=== PATIENT | male | born 1995 | race Caucasian/White ===

== ENCOUNTER → 2019-06-29 11:19 | Outpatient (CLI) | payer OTHER, SELFPAY ==
--- NOTE | 2019-06-29 11:22 | US_ITS ---
STUDY: ABDOMINAL ULTRASOUND - RIGHT UPPER QUADRANT REASON FOR VISIT: Male, 24 years old hyperbilirubinemia TECHNIQUE: Ultrasound evaluation of the right upper quadrant was performed with real-time and static martinez-scale imaging. TECHNICAL QUALITY: Adequate. COMPARISON: None. FINDINGS: Liver: The liver measures 15.6 cm. There is normal echogenicity of the liver. The bile ducts are within normal limits. There is hepatic color flow. The direction of portal flow is hepatopetal. There is no demonstrated mass lesion. Gallbladder: Normal distended gallbladder. The gallbladder wall measures 1.7 mm. There is a negative sonographic Beckett's sign. There is no pericholecystic fluid. There are two gallbladder polyps measuring up to 3.9 mm. Common Bile Duct (C.B.D.): The common bile duct measures 1.9 mm. Pancreas: Normal size of the head, body and tail of the pancreas. There is normal echogenicity of the pancreas. There is no demonstrated pancreatic mass or cyst. Right Kidney: Normal size of the right kidney. The right kidney measures 10.6 cm in length. There is no demonstrated renal mass or cyst. There is no right hydronephrosis. US/Abdomen Limited IMPRESSION: No acute intra-abdominal process. Gallbladder polyps. Electronically Signed: Nella Somers MD at 16:54 EDT Tel , Service support ,
== END ==
PROVIDERS: Family Provider Family Medicine; PCP Family Medicine; Referring Provider Family Medicine; Visit Provider Family Medicine
DX: E80.6 Other disorders of bilirubin metabolism (principal)
CPT/HCPCS: 76705

== ENCOUNTER → 2021-01-08 15:47 | Outpatient (CLI) | payer OTHER, SELFPAY ==
--- NOTE | 2021-01-08 15:48 | CT_ITS ---
STUDY: CT FACIAL BONES WITHOUT CONTRAST REASON FOR EXAM: Male, 25 years old. sinus congestion and vertigo RADIATION DOSAGE (If Supplied By Facility): CTDIvol = ( 28.14 ) mGy, DLP = ( 749.71 ) mGycm TECHNIQUE: The patient was scanned in a multi detector CT scanner. Sagittal and coronal images were reconstructed. Individualized dose optimization techniques were used for this CT. COMPARISON: None. FINDINGS: There are large, asymmetric coarse calcifications in the left auricular cartilage with only trace calcification in the right articular cartilage. Normal orbital hernandez and orbital contents. Normal nasal bones and anterior nasal spine. Normal facial bones. There is no demonstrated fracture. Normal visualized paranasal sinuses. CT/Sinus/Facial Bone IMPRESSION: The paranasal sinuses are clear. Incidentally noted is a large, asymmetric coarse calcifications in the left articular cartilage. There is a wide differential for this appearance including but is not limited to hyperparathyroidism, gout, relapsing polychondritis or trauma. Electronically Signed: Oswald Cartwright MD at 16:36 EDT Tel , Service support ,
== END ==
PROVIDERS: PCP Family Medicine; Referring Provider Family Medicine; Visit Provider Family Medicine
DX: R42 Dizziness and giddiness (principal)
CPT/HCPCS: 70486

== ENCOUNTER → 2021-07-18 15:52 | Outpatient (CLI) | payer OTHER, SELFPAY ==
[2021-07-20 08:09] LABS: HEPATITIS B SURFACE AG Negative (Negative); Hepatitis A IgM Antibody Negative (Negative); Hepatitis B Core AB IgM Negative (Negative)
[2021-07-20 13:33] LABS: Hep C Antibodies <0.1 s/co ratio (0.0-0.9)
== END ==
PROVIDERS: PCP Family Medicine; Referring Provider Family Medicine; Visit Provider Family Medicine
DX: R79.89 Other specified abnormal findings of blood chemistry (principal)
CPT/HCPCS: 36415; 80074

== ENCOUNTER 2021-11-26 09:56 | Outpatient (CLI) | payer OTHER, SELFPAY ==
[2021-11-26 12:27] LABS: Hepatitis B Surface Antibody Reactive; Rubella IgG Reactive (Nonreactive)
[2021-11-27 18:39] LABS: Mumps Antibody,IgG 72.1 AU/mL (Immune >10.9); Rubeola IgG Ab > 300.0 AU/mL (Immune >16.4); V-Zoster IgG (Immunity) 2790 index (Immune >165)
== END 2021-11-26 23:59 | disposition home or self-care (01) ==
LOC: LAB 09:59
PROVIDERS: PCP Family Medicine; Visit Provider Family Medicine
DX: Z01.84 Encounter for antibody response examination (principal)
CPT/HCPCS: 86706; 86735; 86762; 86765; 86787

== ENCOUNTER 2022-05-23 08:24 | Outpatient (RCR) | payer OTHER, SELFPAY | END 2022-05-27 23:59 | LOC: LABSPEC 08:24 | PROVIDERS: PCP Family Medicine; Referring Provider Family Medicine Geriatric Medicine; Visit Provider Family Medicine Geriatric Medicine | DX: Z01.84 Encounter for antibody response examination (principal) | CPT/HCPCS: 87811 ==

== ENCOUNTER → 2023-01-22 | Outpatient (CLI) | payer OTHER, SELFPAY ==
[2023-01-22 10:55] LABS: ALB/GLOB Ratio 1.4 RATIO (0.9-2.4); AST(SGOT) 19 U/L (15-37); Alanine Aminotransfer ALT/SGPT 31 U/L (16-61); Albumin, Serum 4.4 g/dL (3.2-5.0); Alkaline Phosphatase 41 U/L (45-117); Anion Gap 2 (5-15); BUN 15 mg/dL (7-18); BUN/Creat Ratio 14.2 RATIO (10-20); Calcium,Total 8.9 mg/dL (8.5-10.1); Chloride 103 mmol/L (98-107); Creatinine, Serum 1.06 mg/dL (0.70-1.30); EST Glomerular Filtration Rate 87 mL/min (>60); Est Glom Filt Rate - Afr Amer 106 mL/min (>60); Ferritin 245 ng/mL (26-388); Globulin 3.2 g/dL (2.2-4.2); Glucose 92 mg/dL (74-106); Magnesium 2.1 mg/dL (1.6-2.6); Potassium 3.6 mmol/L (3.5-5.1); Protein, Total 7.6 g/dL (6.4-8.2); Sodium Level 133 mmol/L (136-145); T4 Free Direct 0.97 ng/dL (0.76-1.46); Thyroid Stim Hormone (TSH) 1.29 uIU/mL (0.358-3.74)
[2023-01-26 11:09] LABS: Anti-Nuclear Antibody Test Negative (.)
[2023-01-27 00:06] LABS: Lyme IgG P18 Ab Absent (.); Lyme IgG P23 Ab Present (.); Lyme IgG P28 Ab Absent (.); Lyme IgG P30 Ab Absent (.); Lyme IgG P39 Ab Absent (.); Lyme IgG P41 Ab Present (.); Lyme IgG P45 Ab Absent (.); Lyme IgG P58 Ab Absent (.); Lyme IgG P66 Ab Absent (.); Lyme IgG P93 Ab Absent (.); Lyme IgG WB Interpretation Negative (.); Lyme IgM P23 Ab Absent (.); Lyme IgM P39 Ab Absent (.); Lyme IgM P41 Ab Absent (.); Lyme IgM WB Interpretation Negative (.)
[2023-01-27 04:07] LABS: Vitamin B12 602 pg/mL (232-1245)
== END | disposition home or self-care (01) ==
PROVIDERS: PCP Family Medicine; Referring Provider Psychiatry & Neurology Sleep Medicine; Visit Provider Psychiatry & Neurology Sleep Medicine
DX: G37.9 Demyelinating disease of central nervous system, unspecified (principal); R25.3 Fasciculation; R55 Syncope and collapse
CPT/HCPCS: 36415; 80053; 82607; 82728; 83735; 84439; 84443; 86038; 86617

== ENCOUNTER → 2023-01-28 | Outpatient (CLI) | payer OTHER, SELFPAY | END | disposition home or self-care (01) | LOC: PSN 08:22 | PROVIDERS: PCP Family Medicine; Referring Provider Psychiatry & Neurology Sleep Medicine; Visit Provider Psychiatry & Neurology Sleep Medicine | DX: R25.3 Fasciculation (principal); R55 Syncope and collapse | CPT/HCPCS: 95819 ==

== ENCOUNTER → 2023-02-10 | Outpatient (CLI) | payer OTHER, SELFPAY ==
--- NOTE | 2023-02-10 07:37 | MRI_ITS ---
STUDY: MRI BRAIN WITHOUT CONTRAST REASON FOR EXAM: Male, 27 years old. DEMYELINATING DISEASE,TWITCH,ABNORMAL INVOLUNTARY MOVEMENT,VASOVAGAL EPISODE TECHNIQUE: Standardized multiplanar fat and water weighted pulse sequences were obtained. COMPARISON: None. FINDINGS: Normal size of the ventricles and extra-axial spaces for the patient''s age. Normal white matter tracts of the supratentorial brain. Normal bilateral basal ganglia. Normal thalami. There is no extra-axial fluid accumulation. Normal flow voids within the major intracranial circulation suggesting patency by spin echo criteria. Normal sella turcica, pituitary gland, infundibular stalk, optic chiasm and hypothalamus. Normal tectal plate and pineal gland. Normal midbrain, duyen and medulla. Normal cerebellum. Normal basal cisterns. Normal bilateral temporal bones. Normal bilateral internal auditory canals. No demonstrated orbital abnormality, within the constraints of a routine brain study. Normal visualized paranasal sinuses. Normal calvarium and skull base. Tiny Thornwaldt cyst noted within the posterior nasopharynx. Normal visualized upper cervical spine. MRI/Brain without Contrast IMPRESSION: Normal unenhanced MRI of the brain. Incidental finding of Thornwaldt cyst within the posterior nasopharynx which is likely of no significance Electronically Signed: Camron Johnson MD at 18:37 EDT ,
== END | disposition home or self-care (01) ==
LOC: MRI 07:24
PROVIDERS: PCP Family Medicine; Referring Provider Psychiatry & Neurology Sleep Medicine; Visit Provider Psychiatry & Neurology Sleep Medicine
DX: G37.9 Demyelinating disease of central nervous system, unspecified (principal); R25.3 Fasciculation; R55 Syncope and collapse
CPT/HCPCS: 70551

== ENCOUNTER → 2023-05-07 | Outpatient (CLI) | payer OTHER, SELFPAY ==
[2023-05-12 00:07] LABS: Lyme IgG P18 Ab Absent (.); Lyme IgG P23 Ab Absent (.); Lyme IgG P28 Ab Absent (.); Lyme IgG P30 Ab Absent (.); Lyme IgG P39 Ab Absent (.); Lyme IgG P41 Ab Absent (.); Lyme IgG P45 Ab Absent (.); Lyme IgG P58 Ab Absent (.); Lyme IgG P66 Ab Absent (.); Lyme IgG P93 Ab Absent (.); Lyme IgG WB Interpretation Negative (.); Lyme IgM P23 Ab Absent (.); Lyme IgM P39 Ab Absent (.); Lyme IgM P41 Ab Absent (.); Lyme IgM WB Interpretation Negative (.)
== END | disposition home or self-care (01) ==
LOC: MFPLAB 11:44
PROVIDERS: PCP Family Medicine; Visit Provider Family Medicine
DX: A69.23 Arthritis due to Lyme disease (principal)
CPT/HCPCS: 36415; 86617

== ENCOUNTER 2023-05-22 11:52 | Outpatient (CLI) | payer OTHER, SELFPAY ==
--- OUTSIDE RECORDS SUMMARY | 2023-05-22 11:54 | XMS RPT_ITS | CCD ---
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 Name Role Phone Unavailable Primary Care Provider SILVER Nguyen Referring Unavailable VICKI PRETTY JR Attending Unavailable Allergies Allergy Classification Reported Allergen(s) Allergy Type Date of Onset Reaction(s) Facility (5 sources) Environmental allergies [Other] Propensity to adverse reactions 7 [facility] (1 source) OTHER; Translations: [OTHER] Propensity to adverse reactions (disorder) 7 [facility] Medications Completed/Discontinued Medications Medication Drug Class(es) Dates Sig (Normalized) Sig (Original) sertraline 50 mg oral tablet (3 sources) Serotonin Reuptake Inhibitor take 1 tablet by mouth once daily sertraline (ZOLOFT) 50 mg tablet Take 50 mg by mouth once daily. 0 Active Problems Problem Classification Problem Date Documented Date Episodic/Chronic Other nervous system disorders (1 source) Demyelinating disease of central nervous system; Translations: [Demyelinating disease of central nervous system, unspecified] Chronic Other nervous system disorders (1 source) Muscle twitch; Translations: [Fasciculation] Episodic Other nervous system disorders (1 source) Abnormal involuntary movement; Translations: [Unspecified abnormal involuntary movements] Episodic Other upper respiratory disease (5 sources) Allergic rhinitis; Translations: [Allergic rhinitis, unspecified] Onset: 05-10-2007 05-10-2007 Chronic Other upper respiratory infections (5 sources) Chronic sinusitis; Translations: [Chronic sinusitis, unspecified] Onset: 06-09-2007 06-09-2007 Chronic Syncope (1 source) Vasovagal syncope; Translations: [Syncope and collapse] Episodic Results Test Name Value Interpretation Reference Range Facil ity Vital Signs Date Time Vital Sign Value Performing Clinician Faci lity 01-22-2023 07:59-0400 Body temperature 98.49 [degF] Vicki Pretty Jr., MD Work Phone: [facility] 01-22-2023 07:59-0400 Body weight 88.09 kg Vicki Pretty Jr., MD Work Phone: [facility] 01-22-2023 07:59-0400 Diastolic blood pressure 85 mm[Hg] Vicki Pretty Jr., MD Work Phone: [facility] 01-22-2023 07:59-0400 Heart rate 92 /min Vicki Pretty Jr., MD Work Phone: [facility] 01-22-2023 07:59-0400 Respiratory rate 16 /min Vicki Pretty Jr., MD Work Phone: [facility] 01-22-2023 07:59-0400 SaO2% (BldA) [Mass fraction] 98 % Vicki Pretty Jr., MD Work Phone: [facility] 01-22-2023 07:59-0400 Systolic blood pressure 130 mm[Hg] Vicki Pretty Jr., MD Work Phone: [facility] Encounters Encounter Date Encounter Type Care Provider Facility Start: 01-27-2023 Telephone encounter Vicki Pretty MD Work Phone: Sleep Plan of Treatment Date Care Activity Detail Author Start: 01-22-2023 End: 03-24-2023 L[facility] BY IFA WITH REFLEX [facility] BY IFA WITH REFLEX Lab Routine Demyelinating disease of central nervous system (HCC) Twitch Abnormal involuntary movement Vasovagal episode Expected: 01/22/2023, Expires: 03/24/2023 [facility] Work Phone: Immunizations Immunization Date Immunization Notes Care Provider Piero portillo 03-23-2014 hepatitis A vaccine, pediatric/adolescent dosage, 2 dose schedule Vicki Pretty Jr., MD Work Phone: [facility] 07-23-2011 influenza virus vaccine, live, attenuated, for intranasal use Vicki Pretty Jr., MD Work Phone: [facility] 08-09-2008 hepatitis A vaccine, unspecified formulation Vicki Pretty Jr., MD Work Phone: [facility] Work Phone: 08-09-2008 influenza virus vaccine, live, attenuated, for intranasal use Vicki Pretty Jr., MD Work Phone: [facility] Work Phone: 07-19-2007 influenza virus vaccine, live, attenuated, for intranasal use Vicki Pretty Jr., MD Work Phone: [facility] Work Phone: 07-19-2007 Meningococcal, MCV4, unspecified conjugate formulation(groups A, C, Y and W-135) Vicki Pretty Jr., MD Work Phone: [facility] Work Phone: 06-09-2007 pneumococcal conjuga te vaccine, 7 valent Vicki Pretty Jr., MD Work Phone: [facility] Work Phone: 06-17-2005 tetanus toxoid, redu chris diphtheria toxoid, and acellular pertussis vaccine, adsorbed Vicki Pretty Jr., MD Work Phone: [facility] 01-12-2000 hepatitis B vaccine, pediatric or pediatric/adolescent dosage Vicki Pretty Jr., MD Work Phone: [facility] Work Phone: 07-08-1998 hepatitis B vaccine, pediatric or pediatric/adolescent dosage Vicki Pretty Jr., MD Work Phone: [facility] Work Phone: 05-16-1998 diphtheria, tetanus toxoids and pertussis vaccine Vicki Pretty Jr., MD Work Phone: [facility] Work Phone: 05-16-1998 hepatitis B vaccine, pediatric or pediatric/adolescent dosage Vicki Pretty Jr., MD Work Phone: [facility] Work Phone: 05-16-1998 measles, mumps and rubella virus vaccine Vicki Pretty Jr., MD Work Phone: [facility] Work Phone: 1997 chicken pox (disease) Suman Pretty Jr., MD Work Phone: [facility] Work Phone: 10-23-1994 diphtheria, tetanus toxoids and pertussis vaccine Vicki Pretty Jr., MD Work Phone: [facility] Work Phone: 10-23-1994 haemophilus influenz ae type b vaccine, HbOC conjugate Vicki Pretty Jr., MD Work Phone: [facility] Work Phone: 10-23-1994 measles, mumps and rubella virus vaccine Vicki Pretty Jr., MD Work Phone: [facility] Work Phone: 10-23-1994 trivalent poliovirus vaccine, live, oral Vicki Pretty Jr., MD Work Phone: [facility] Work Phone: 06-29-1994 diphtheria, tetanus toxoids and pertussis vaccine Vicki Pretty Jr., MD Work Phone: [facility] Work Phone: 06-29-1994 trivalent poliovirus vaccine, live, oral Vicki Pretty Jr., MD Work Phone: [facility] Work Phone: 01-13-1994 diphtheria, tetanus toxoids and pertussis vaccine Vicki Pretty Jr., MD Work Phone: [facility] Work Phone: 01-13-1994 haemophilus influenz ae type b vaccine, HbOC conjugate Vicki Pretty Jr., MD Work Phone: [facility] Work Phone: 01-13-1994 trivalent poliovirus vaccine, live, oral Vicki Pretty Jr., MD Work Phone: [facility] Work Phone: 1993 diphtheria, tetanus toxoids and pertussis vaccine Vicki Pretty Jr., MD Work Phone: [facility] Work Phone: 1993 haemophilus influenz ae type b vaccine, HbOC conjugate Vicki Pretty Jr., MD Work Phone: [facility] Work Phone: 1993 trivalent poliovirus vaccine, live, oral Vicki Pretty Jr., MD Work Phone: [facility] Work Phone: Payers Date Payer Category Payer Private Health Insurance [facility] [id number] 2022-Present [phone] [address] [place] [address] PPO [id number] 2022 Private Health Insurance [id number] 2014 Unknown HOSPITAL/MEDICAL GENERIC MEDICAL GENERIC [id number] 2014-Present [phone] [place] [id number] Indemnity [id number] Social History Date Type Detail Facility [facility] Start: 05-13-2022 End: 01-22-2023 Alcohol intake Current non-drinker of alcohol (finding) [facility] Start: 1995 Sex Assigned At [facility] 01-28-2023 Telephone Encounter - Trent Bonilla LPN - 01/28/2023 9:08 AM EDTTelephone Encounter - Vicki Pretty Jr., MD - 01/28/2023 8:48 AM EDT Note Date & Type Note Facility 01-28-2023 Miscellaneous Notes Formattin g of this note might be different from the original. MC message sent to patient with providers results. Trent Bonilla LPN From reports received, labs unremarkable. Vicki Pretty MD Please see attached labs and review. Scan on 01/27/2023 12:33 PM by External Provider, KEVIN: Hematology Marlys Trejo LPN Labs received via [employer] from [facility]. Scanned in to chart and sent to provider for review. Marlys Trejo LPN Pt calling for results of lab work done at [facility]. Pt was being tested for Lyme's Disease. Please advise pt. Natalie Raines LPN documented in this encounter [facility] Note 01-22-2023 Telephone Encounter - Marlys Trejo LPN - 01/22/2023 10:55 AM EDTTelephone Encounter - Francesca Lockett RN - 01/22/2023 10:32 AM EDT Note Date & Type Note Facility 01-22-2023 Miscellaneous Notes Formattin g of this note might be different from the original. Referral placed. Marlys Trejo LPN Mary Alice with [facility] Precert called in and reports provider needs to initiate the authorization for the MRI they ordered through the [facility]. documented in this encounter [facility] Progress note 01-22-2023 Note Date & Type Note Facility 01-22-2023 Note HNO ID: [id number] Author: Vicki Pretty Jr., MD Service: ? Author Type: Physician Type: Progress Notes Filed: 01/22/2023 8:54 AM Note Text: NEW PATIENT (CONSULT) HISTORY AND PHYSICAL EXAM PRIMARY CARE PHYSICIAN: No primary care provider on file. REASON FOR CONSULT: Facial twitching REFERRING PHYSICIAN: Silver Hart MD CHIEF COMPLAINT: Twitching Consultation requested by Silver Hart MD for an opinion regarding chief complaint of Patient presents with: New Patient and my final recommendations will be communicated back to the requesting physician by way of shared medical record or letter via [place] mail. HISTORY OF PRESENT ILLNESS: Beata Simpson is a 27 year old male, with complaint of facial twitching. 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 States then later noted a sensation that his nose is dilating and maral (bilateral nares). States feels like it is coming down from the middle of the head into the nose. States this sensation always there. Adds that at times feels like pupils dilating and constricting in a rhythmic pattern. States sertraline may have helped the eye twitching just a little bit. Eye twitching was bilateral. States has headaches, but nothing out of the ordinary and not associated directly with symptoms (maybe 2 days per month and relieved with OTC). Regarding vasovagal events, states first time was drawing blood and suddenly became clammy and felt like he was going to pass out. States weird sensations since then. States he is seeing a counselor for exposure therapy. Sertraline provided some relief. No association with time of day. No association with temperature. States uncle with MS. No significant head traumas through the years except coupe concussions as a kid. No HOSPITAL ACCOUNT MANAGER infection. No personal or family history of seizures. REVIEW OF SYSTEMS GENERAL:No weight loss, malaise or fevers. HEENT:Negative for frequent or significant headaches, No changes in hearing or vision, no nose bleeds or other nasal problems NECK:Negative for lumps, goiter, pain and significant neck swelling RESPIRATORY: Negative for cough, wheezing or shortness of breath. CARDIOVASCULAR: Negative for chest pain, leg swelling or palpitations. GASTROINTESTINAL: Negative for abdominal discomfort, blood in stools or black stools or change in bowel habits GENITOURINARY: No history of dysuria, frequency or incontinence MUSCULOSKELETAL: Negative for joint pain or swelling, back pain or muscle pain. NEUROLOGIC:Negative for focal numbness or weakness, headaches and dizziness or syncope, vision changes, speech/language changes, changes in gait or falls -- besides those complaints as above in HPI. SKIN:Negative for lesions, rash, and itching. PSYCHIATRIC: See HPI. HEMATOLOGIC/LYMPHATIC/IMMUNOLOGIC:Negativ e for prolonged bleeding, bruising easily or swollen nodes. ENDOCRINE: Negative for cold or heat intolerance, polyuria, polydipsia and goiter. The remainder of the ROS was reviewed and is negative. LAB/IMAGING: Reviewed and include: D/w pt and no recent labs except BMP that pt states was told normal. No results found for: WBC, RBC, HB, HCT, MCV, MCH, MCHC, RDWCV, PLT, MPV, GLUC, BUN, CREAT, NA, K, CHLOR, CO2, TPROT, ALB, CA, ALKPHOS, TBILI, AST, ALT, LUH, ESRMM, SSA, SSB, CRYO, CRYOQ, RF, AHBSQ, HEPCABEIA URINALYSIS Specific [place], Ur Date Value Ref Range Status 08/09/2008 1.025 1.005 - 1.030 Glucose, Urine Date Value Ref Range Status 08/09/2008 neg Neg mg/dL Bilirubin, Urine Date Value Ref Range Status 08/09/2008 neg Neg Ketones, Urine Date Value Ref Range Status 08/09/2008 neg Neg Hemoglobin/Blood,Ur Date Value Ref Range Status 08/09/2008 neg Neg Protein, Urine Date Value Ref Range Status 08/09/2008 100 Neg mg/dL Urobilinogen, Urine Date Value Ref Range Status 08/09/2008 2 Normal (<1.1) EU Leukocytes Date Value Ref Range Status 08/09/2008 neg Neg MEDICATIONS: sertraline (ZOLOFT) 50 mg tablet Take 50 mg by mouth once daily. valACYclovir (VALTREX) 500 mg tablet 1 tab twice daily for 3 days then daily throughout the wrestling season. (Patient not taking: Reported on 01/22/2023) HISTORIES PAST MEDICAL HISTORY Diagnosis Date ALLERGIC RHINITIS NOS 05/10/2007 CHRONIC SINUSITIS NOS 06/09/2007 PMH - PAST MEDICAL HISTORY OF 05/16/98 normal color vision Varicella without mention of complication 1 years of age FAMILY HISTORY Problem Relation Age of Onset None Mother None Father None Brother SOCIAL HISTORY Social History Tobacco Use Smoking status: Never Smokeless tobacco: Never Substance Use Topics Alcohol use: No Drug use: No PHYSICAL EXAMINATION BP 130/85 Pulse 92 Temp 36.9 ?C (98.5 ?F) Resp 16 Wt 88.1 kg (194 lb 3.2 oz) SpO2 98% (more content not included)... [facility] History of Present illness Narrative 01-22-2023 Vicki Pretty Jr., MD - 01/22/2023 8:14 AM EDT Note Date & Type Note Facility 01-22-2023 History of Presen t illness Narrative NEW PATIENT (CONSULT) HISTORY AND PHYSICAL EXAM PRIMARY CARE PHYSICIAN: No primary care provider on file. REASON FOR CONSULT: Facial twitching REFERRING PHYSICIAN: Silver Hart MD CHIEF COMPLAINT: Twitching Consultation requested by Silver Hart MD for an opinion regarding chief complaint of Patient presents with: New Patient and my final recommendations will be communicated back to the requesting physician by way of shared medical record or letter via [place] mail. HISTORY OF PRESENT ILLNESS: Beata Simpson is a 27 year old male, with complaint of facial twitching. 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 States then later noted a sensation that his nose is dilating and maral (bilateral nares). States feels like it is coming down from the middle of the head into the nose. States this sensation always there. Adds that at times feels like pupils dilating and constricting in a rhythmic pattern. States sertraline may have helped the eye twitching just a little bit. Eye twitching was bilateral. States has headaches, but nothing out of the ordinary and not associated directly with symptoms (maybe 2 days per month and relieved with OTC). Regarding vasovagal events, states first time was drawing blood and suddenly became clammy and felt like he was going to pass out. States weird sensations since then. States he is seeing a counselor for exposure therapy. Sertraline provided some relief. No association with time of day. No association with temperature. States uncle with MS. No significant head traumas through the years except coupe concussions as a kid. No HOSPITAL ACCOUNT MANAGER infection. No personal or family history of seizures. REVIEW OF SYSTEMS GENERAL:No weight loss, malaise or fevers. HEENT:Negative for frequent or significant headaches, No changes in hearing or vision, no nose bleeds or other nasal problems NECK:Negative for lumps, goiter, pain and significant neck swelling RESPIRATORY: Negative for cough, wheezing or shortness of breath. CARDIOVASCULAR: Negative for chest pain, leg swelling or palpitations. GASTROINTESTINAL: Negative for abdominal discomfort, blood in stools or black stools or change in bowel habits GENITOURINARY: No history of dysuria, frequency or incontinence MUSCULOSKELETAL: Negative for joint pain or swelling, back pain or muscle pain. NEUROLOGIC:Negative for focal numbness or weakness, headaches and dizziness or syncope, vision changes, speech/language changes, changes in gait or falls -- besides those complaints as above in HPI. SKIN:Negative for lesions, rash, and itching. PSYCHIATRIC: See HPI. HEMATOLOGIC/LYMPHATIC/IMMUNOLOGIC:Neg ative for prolonged bleeding, bruising easily or swollen nodes. ENDOCRINE: Negative for cold or heat intolerance, polyuria, polydipsia and goiter. The remainder of the ROS was reviewed and is negative. LAB/IMAGING: Reviewed and include: D/w pt and no recent labs except BMP that pt states was told normal. No results found for: WBC, RBC, HB, HCT, MCV, MCH, MCHC, RDWCV, PLT, MPV, GLUC, BUN, CREAT, NA, K, CHLOR, CO2, TPROT, ALB, CA, ALKPHOS, TBILI, AST, ALT, LUH, ESRMM, SSA, SSB, CRYO, CRYOQ, RF, AHBSQ, HEPCABEIA URINALYSIS Specific [place], Ur Date Value Ref Range Status 08/09/2008 1.025 1.005 - 1.030 Glucose, Urine Date Value Ref Range Status 08/09/2008 neg Neg mg/dL Bilirubin, Urine Date Value Ref Range Status 08/09/2008 neg Neg Ketones, Urine Date Value Ref Range Status 08/09/2008 neg Neg Hemoglobin/Blood,Ur Date Value Ref Range Status 08/09/2008 neg Neg Protein, Urine Date Value Ref Range Status 08/09/2008 100 Neg mg/dL Urobilinogen, Urine Date Value Ref Range Status 08/09/2008 2 Normal (<1.1) EU Leukocytes Date Value Ref Range Status 08/09/2008 neg Neg MEDICATIONS: sertraline (ZOLOFT) 50 mg tablet Take 50 mg by mouth once daily. valACYclovir (VALTREX) 500 mg tablet 1 tab twice daily for 3 days then daily throughout the wrestling season. (Patient not taking: Reported on 01/22/2023) HISTORIES PAST MEDICAL HISTORY Diagnosis Date ALLERGIC RHINITIS NOS 05/10/2007 CHRONIC SINUSITIS NOS 06/09/2007 PMH - PAST MEDICAL HISTORY OF 05/16/98 normal color vision Varicella without mention of complication 1 years of age FAMILY HISTORY Problem Relation Age of Onset None Mother None Father None Brother SOCIAL HISTORY Social History Tobacco Use Smoking status: Never Smokeless tobacco: Never Substance Use Topics Alcohol use: No Drug use: No PHYSICAL EXAMINATION BP 130/85 Pulse 92 Temp 36.9 C (98.5 F) Resp 16 Wt 88.1 kg (194 lb 3.2 oz) SpO2 98% GENERAL EXAM: General appearance: NAD, pleasant. HEENT: NC/AT, nasal congestion absent, no oral lesions, membranes moist. NECK: No masses, supple. Lungs: CTA bilaterally. CV: RRR nl S1, S2. No carotid bruits. Extr: No cyanosis, clubbing or edema. Skin: Cool to touch. NEUROLOGICAL EXAM: General: Awake, alert, oriented x3 (person,place,time), speech fluent, no dysarthria; comprehension, naming, repetition intact. CN: PERRL, fundi with no evidence of papilledema, EOMI and without nystagmus, VFF to confrontation, facial sensation and strength are normal and symmetric, hearing is intact to finger rub bilaterally, palate and tongue movements are intact and symmetric. SCM and trapezius strength normal. Motor: Normal tone, bulk and strength (5/5) bilaterally (throughout extremities x4). Reflexes: 2/4 and symmetric, plantar stimulation is flexor. Coordination: FNF, ROLF, HTS intact. No tremors. Sensation: Light touch, vibration, temperature intact throughout. No evidence of neglect. Gait: Stable with normal stride and arm swing. Romberg normal. Assessment and Plan: ASSESSMENT/PLAN: 1. Twitch - ICD9: 781.0, ICD10: R25.3 (primary diagnosis) 2. Abnormal involuntary movement - ICD9: 781.0, ICD10: R25.9 3. Vasovagal episode - ICD9: 780.2, ICD10: R55 Patient with complaints above, of which etiology is uncertain. While there has been some response to the use of sertraline with a reduction in symptoms, the diagnosis of anxiety induced symptoms would be a diagnosis of exclusion. 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 Thus, need to consider other etiologies not just for this symptom but for twitching and abnormal sensations of the face with ddx including metabolic cause or infectious process given exposure to tick in the past. Given rhythmic pattern of pupils, seizure would also be in ddx. Finally given family history of MS, need to consider demyelinating process. If workup unremarkable, then can reconsider possible anxiety as a cause. Plan as follows and with which pt agrees. - MRI BRAIN WO IVCON - evaluate for demyelinating changes or other intracranial source of symptoms. -EEG - evaluate for epileptiform abnormalities. -Labs as follows: - TSH BLD - T4 FREE/FREE THYROX - VITAMIN B12 BLOOD - LUH BY IFA WITH REFLEX - LYME AB LATE >30 DAYS SYMPTOMS - MAGNESIUM BLD - COMP METABOLIC PANEL - FERRITIN BLD Pt will follow up once workup complete to determine course of treatment. Vicki Pretty MD Medical Decision Making: Problems: Moderate: New problem with uncertain prognosis Data: Unique test(s) ordered: 3+ Medical Decision Making Level: 4 - Moderate documented in this encounter [facility] Note 12-17-2022 Telephone Encounter - Britt Dobbins Pss - 12/17/2022 5:03 PM EDT Note Date & Type Note Facility 12-17-2022 Miscellaneous Notes Formattin g of this note might be different from the original. Called the patient to schedule an appointment. He needs to be seen for abnormal involuntary movement and twitching. The referral and medical records were sent for scanning. documented in this encounter [facility] Note 12-15-2022 Telephone Encounter - Marlys Trejo LPN - 12/15/2022 8:58 AM EDT Note Date & Type Note Facility 12-15-2022 Miscellaneous Notes Formattin g of this note might be different from the original. Referral received from [facility] for twitching of face and nose. Information given to Britt Dobbins for scheduling. Marlys Trejo LPN documented in this encounter [facility] Evaluation note Note Date & Type Note Facility documented in this encounter [facility] Reason for referral (narrative) Outpatient Procedure (Routine) - Pending Review Note Date & Type Note Facility Referral ID Status Reason Start Date Expiration Date Visits Requested Visits Authorized [id number] Pending Review Auto-Generat ed Referral 01/22/2023 01/23/2024 1 1 * MRI/CT (Routine) - Pending Review Specialty Diagnoses / Procedures Referred By Hilario perez Referred To Contact MR IMAGING Diagnoses Demyelinating disease of central nervous system (HCC) Twitch Abnormal involuntary movement Vasovagal episode Procedures MRI BRAIN WO IVCON MRI BRAIN BRAIN STEM W/O CONTRAST MATERIAL Vicki Pretty Jr., MD [address] [facility] [address] [place] [address] Mr Imaging Referral ID Status Reason Start Date Expiration Date Visits Requested Visits Authorized [id number] Pending Review Auto-Generat ed Referral 01/22/2023 02/21/2024 1 1 [facility] Summary Purpose Family History No Family History Records FoundNo Family History Records Found Advance Directives No Advanced Directives Records FoundNo Advanced Directives Records Found Additional Source Comments Source Comments (unrecognize d section and content) In the event this informatio n is protected by the Federal Confidentiality of Alcohol and Drug Abuse Patient Records regulations: The Federal rules restrict any use of the information to criminally investigate or prosecute any alcohol or drug abuse patient.[facility] the event this information is protected by the Federal Confidentiality of Alcohol and Drug Abuse Patient Records regulations: The Federal rules restrict any use of the information to criminally investigate or prosecute any alcohol or drug abuse patient.[facility] SystemIn the event this information is protected by the Federal Confidentiality of Alcohol and Drug Abuse Patient Records regulations: The Federal rules restrict any use of the information to criminally investigate or prosecute any alcohol or drug abuse patient.[facility] SystemIn the event this information is protected by the Federal Confidentiality of Alcohol and Drug Abuse Patient Records regulations: The Federal rules restrict any use of the information to criminally investigate or prosecute any alcohol or drug abuse patient.[facility] SystemIn the event this information is protected by the Federal Confidentiality of Alcohol and Drug Abuse Patient Records regulations: The Federal rules restrict any use of the information to criminally investigate or prosecute any alcohol or drug abuse patient.[facility] Reason for Visit (unrecogniz ed section and content) Reason Comments Referral Information Appointment Reason Comments New Patient Reason Comments MRI Authorization Reason Comments Results (unrecognized sect ion and content) No Status Records FoundNo Status Records Found INFORMATION SOURCE (unrecogn ized section and content) DATE CREATED AUTHOR AUTHOR'S ORGANTARA ATION 02/16/2023 [facility] FOR RECORDS PERTAINING TO PATIENTS WHO ARE OR HAVE BEEN ENROLLED IN A CHEMICAL DEPENDENCY/SUBSTANCEABUSE PROGRAM, SOME INFORMATION MAY BE OMITTED. This clinical summary was aggregated from multiple sources. Caution should be exercised in using it in the provision of clinical care. This summary normalizes information from multiple sources, and as a consequence, information in this document may materially change the coding, format and clinical context of patient data. In addition, data may be omitted in some cases. CLINICAL DECISIONS SHOULD BE BASED ON THE PRIMARY CLINICAL RECORDS. [facility]. provides no warranty or guarantee of the accuracy or completeness of information in this document.
[2023-05-22 12:28] LABS: Absolute Lymphocyte Count 2.69 X10^3/uL (0.83-4.51); Absolute Neutrophil Count 2.4 X10^3/uL (2.0-7.7); Basophil# 0.05 X10^3/uL; Basophil% 0.9 % (0-1); Eosinophil# 0.07 X10^3/uL; Eosinophils% 1.3 % (0-5); Hematocrit 42.9 % (40-54); Hemoglobin 14.7 g/dL (13.0-16.5); Lymphocyte # 2.69 X10^3/ul (0.83-4.51); Lymphocyte % 48.1 % (19-41); Mean Corp Hgb Conc 34.3 g/dL (32-36); Mean Corpuscular Hgb 28.8 pg (27.0-32.0); Mean Corpuscular Volume 84.1 fL (80-94); Mean Platelet Vol. 10.1 fl (6.2-12.0); Monocyte# 0.35 X10^3/uL; Monocyte% 6.3 % (0-10); NRBC Flagged by Analyzer 0 % (0-5); Neutrophil # 2.36 X10^3/uL (2.7-7.7); Neutrophil % 42.1 % (47-70); Platelet Count 184 K/mm3 (150-450); RBC Distribution Width CV 12.1 % (11.6-14.6); RBC Distribution Width SD 36.7 fl (35.1-43.9); White Blood Count 5.6 K/mm3 (4.4-11.0)
[2023-05-22 12:37] LABS: Erythrocyte Sedimentation Rate < 1 mm/hr (0-20)
[2023-05-22 12:49] LABS: ALB/GLOB Ratio 1.4 RATIO (0.9-2.4); AST(SGOT) 23 U/L (15-37); Alanine Aminotransfer ALT/SGPT 44 U/L (16-61); Albumin, Serum 4.6 g/dL (3.2-5.0); Alkaline Phosphatase 36 U/L (45-117); Anion Gap 7 (5-15); BUN 14 mg/dL (7-18); BUN/Creat Ratio 13.1 RATIO (10-20); CRP, High Sensitivity Cardiac 0.34 mg/L; Calcium,Total 9.3 mg/dL (8.5-10.1); Chloride 106 mmol/L (98-107); Creatinine, Serum 1.07 mg/dL (0.70-1.30); EST Glomerular Filtration Rate 86 mL/min (>60); Est Glom Filt Rate - Afr Amer 104 mL/min (>60); Globulin 3.2 g/dL (2.2-4.2); Glucose 108 mg/dL (74-106); Potassium 4.1 mmol/L (3.5-5.1); Protein, Total 7.8 g/dL (6.4-8.2); Sodium Level 141 mmol/L (136-145)
== END 2023-05-22 23:59 | disposition home or self-care (01) ==
LOC: LAB 11:53
PROVIDERS: PCP Family Medicine; Visit Provider Family Medicine
DX: R20.0 Anesthesia of skin (principal); R20.2 Paresthesia of skin
CPT/HCPCS: 80053; 85025; 85652; 86141

== ENCOUNTER → 2023-06-16 | Outpatient (CLI) | payer OTHER, SELFPAY ==
--- NOTE | 2023-06-16 12:41 | NEURO ---
NCS and/or EMG Patient Report Ordering Doctor: Silver Hart DATE OF SERVICE: 06/16/23 Faibo presents for electrodiagnostic testing of the upper limbs. He reports numbness and tingling in both hands. He has muscle fatigue, weakness and pain. He reports difficulty with activity. He reports a shooting sensation from the neck to the mid back and left upper rib cage. Electrodiagnostic findings: Left median motor nerve demonstrates distal latency with normal amplitude and reduced conduction velocity. Right median motor response is within normal limits. Left ulnar motor response demonstrates a drop in conduction across the elbow. Right ulnar motor response also demonstrates a drop in conduction across the elbow. Prolonged left median F-wave. Prolonged left median sensory latency at the wrist. Needle EMG testing was performed in the upper limbs. 1+ fibrillations are noted bilaterally in the triceps, flexor carpi ulnaris and lower cervical paraspinals. Motor unit action potentials are of normal amplitude and duration. Electrodiagnostic impression: This is an abnormal study in the upper limbs 1. Electrodiagnostic findings consistent with acute bilateral C7 radiculopathy. Consider correlation with cervical spine MRI 2. Electrodiagnostic findings suggestive of a left-sided median mononeuropathy. This is consistent with a mild left carpal tunnel syndrome. 3. Electrodiagnostic findings suggestive of bilateral ulnar neuropathy. This consistent with a moderate to advanced bilateral cubital tunnel syndrome. Multi Select Codes Neurology Neurology Interp Codes: 84835-62 Musc test done w/n test comp (interp) (2) and 07905-86 Nrv cndj test 11-12 studies (interp)
== END | disposition home or self-care (01) ==
LOC: PSN 10:26
PROVIDERS: PCP Family Medicine; Referring Provider Family Medicine; Visit Provider Family Medicine
DX: R20.0 Anesthesia of skin (principal); R20.2 Paresthesia of skin
CPT/HCPCS: 95886; 95912; 95913

== ENCOUNTER → 2023-06-21 | Outpatient (CLI) | payer OTHER, SELFPAY ==
--- NOTE | 2023-06-21 14:31 | NEURO_ITS ---
NCS and/or EMG Patient Report Ordering Doctor: Silver Hart DATE OF SERVICE: 06/21/23 Findings: Nerve conduction studies were performed in the right and left lower extremity. The right peroneal motor study recording the extensor digitorum brevis showed a normal amplitude, normal distal latency and normal conduction velocity. No conduction block or focal slowing was present across the fibular neck. The right tibial motor study recording the abductor hallucis brevis showed a normal amplitude, normal distal latency and normal conduction velocity. Thr right sural sensory response showed a normal amplitude and conduction velocity. The right superficial peroneal sensory response showed a normal amplitude and conduction velocity. The left peroneal motor study recording the extensor digitorum brevis showed a normal amplitude, normal distal latency and normal conduction velocity. No conduction block or focal slowing was present across the fibular neck. The left tibial motor study recording the abductor hallucis brevis showed a normal amplitude, normal distal latency and normal conduction velocity. The left sural sensory response showed a normal amplitude and conduction velocity. The left superficial peroneal sensory response showed a normal amplitude and conduction velocity. Needle EMG of the right lower extremity and lumbar paraspinal muscles was performed. No denervation was present in any muscle. All motor unit morphology, activation and recruitment patterns were normal. Needle EMG of the left lower extremity was omitted given the symmetry of symptoms and paucity of findings on the right. Impression: This is a normal study. There is no electrophysiologic evidence of peripheral neuropathy of either the right or left lower extremity. In addition, there was no evidence of lumbosacral radiculopathy in the right lower extremity. Please note: the electrodiagnosis of radiculopathy is made on the basis of excluding peripheral nerve lesions on nerve conduction studies and the needle EMG demonstrating denervation and/or reinnervation in the distribution of one or more nerve roots (i.e., acute and/or chronic axonal loss). Thus, electrodiagnostic studies are insensitive in detecting radiculopathy in the absence of axonal loss (e.g., in the setting of compression resulting in inter mittent ischemia or mechanical deformation; or demyelination without axonal loss). Thus, clinical correlation is required in the interpretation of this negative electrodiagnostic study for radiculopathy. Puneet Smalls D.O. Multi Select Codes Neurology Neurology Interp Codes: 30176-35 Musc test done w/n test comp (interp) and 26103-37 Nrv cndj test 7-8 studies (interp)
== END | disposition home or self-care (01) ==
LOC: PSN 13:05
PROVIDERS: PCP Family Medicine; Referring Provider Family Medicine; Visit Provider Family Medicine
DX: R20.0 Anesthesia of skin (principal); R20.2 Paresthesia of skin
CPT/HCPCS: 95886; 95910

== ENCOUNTER → 2023-06-23 | Outpatient (CLI) | payer OTHER, SELFPAY ==
--- NOTE | 2023-06-23 06:41 | MRI_ITS ---
STUDY: MRI BRAIN WITH AND WITHOUT CONTRAST REASON FOR EXAM: Male, 28 years old. RADICULOPATHY, NUMBNESS/TINGLING ,WEAKNESS TECHNIQUE: Standardized multiplanar fat and water weighted pulse sequences were obtained. IV 17ml clariscan was administered for the contrast portion of the examination. COMPARISON: MRI of the brain February 10, 2023. FINDINGS: Normal size of the ventricles and extra-axial spaces for the patient''s age. Normal white matter tracts of the supratentorial brain. Normal bilateral basal ganglia. Normal thalami. There is no extra-axial fluid accumulation. Normal flow voids within the major intracranial circulation suggesting patency by spin echo criteria. Normal venous enhancement. There is no enhancing intra-axial or extra-axial abnormality. Normal pituitary, infundibular stalk, optic chiasm and hypothalamus. Normal tectal plate and pineal gland. Normal midbrain, duyen and medulla. Normal cerebellum. Normal basal cisterns. Normal bilateral temporal bones. Normal bilateral internal auditory canals. No demonstrated orbital abnormality, within the constraints of a routine brain study. Mild bilateral maxillary and ethmoid sinus mucosal thickening.. Normal calvarium and skull base. Probable Tornwaldt cyst in the posterior nasopharynx. Normal visualized upper cervical spine. MRI/Brain W/WO Contrast IMPRESSION: Normal unenhanced and enhanced MRI of the brain. Mild bilateral maxillary and ethmoid sinus disease likely chronic. Electronically Signed: Camron Johnson MD at 17:16 EDT ,
--- NOTE | 2023-06-23 06:41 | MRI_ITS ---
STUDY: MRI CERVICAL SPINE WITH AND WITHOUT CONTRAST REASON FOR EXAM: Male, 28 years old. RADICULOPATHY, NUMBNESS/TINGLING ,WEAKNESS TECHNIQUE: Standardized fat and water weighted pulse sequences were obtained in the sagittal and axial following administration of IV 17ml clariscan. COMPARISON: None FINDINGS: Normal foramen magnum and brainstem-cervical cord junction. Normal craniovertebral junction. Normal anterior atlantoaxial articulation. Normal odontoid process. No evidence for acute fracture or subluxation. Rounded lesion in the T1 vertebral body demonstrating increased signal intensity on all pulse weighted imaging sequences of indeterminate etiology likely representing hemangioma. Normal cervical lordosis. Normal vertebral bodies and posterior osseous elements. C2-3: Normal endplates. Normal disc height, signal and morphology. Normal central canal and intervertebral neural foramina. C3-4: Normal endplates. Normal disc height, signal and morphology. Normal central canal and intervertebral neural foramina. C4-5: Normal endplates. Normal disc height, signal and morphology. Normal central canal and intervertebral neural foramina C5-6: Normal endplates. Normal disc height, signal and morphology. Normal central canal and intervertebral neural foramina. C6-7: Normal endplates. Normal disc height, signal and morphology. Normal central canal and intervertebral neural foramina. C7-T1: Normal endplates. Normal disc height, signal and morphology. Normal central canal and intervertebral neural foramina. Normal cervical cord. No enhancing lesions following contrast administration Normal visualized soft tissue structures. 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 Electronically Signed: Camron Johnson MD at 17:08 EDT Reading Location ID and State: [facility] / [place] Tel , Service support ,
== END | disposition home or self-care (01) ==
PROVIDERS: PCP Family Medicine; Referring Provider Family Medicine; Visit Provider Family Medicine
DX: M54.12 Radiculopathy, cervical region (principal)
CPT/HCPCS: 70553; 72156; A9575

== ENCOUNTER → 2023-08-11 | Outpatient (CLI) | payer OTHER, SELFPAY ==
[2023-08-11 15:06] LABS: Erythrocyte Sedimentation Rate < 1 mm/hr (0-20)
[2023-08-11 15:36] LABS: Vitamin B12 433 pg/mL (211-911)
[2023-08-11 15:37] LABS: CPK Total, Creatine Kinase 193 U/L (39-308); Ferritin 201 ng/mL (26-388); Iron 91 ug/dL (65-175); Iron Binding Capacity,Total 276 ug/dL (250-450); T4 Free Direct 1.08 ng/dL (0.76-1.46); Thyroid Stim Hormone (TSH) 1.09 uIU/mL (0.358-3.74)
[2023-08-16 11:07] LABS: Anti-Nuclear Antibody Test Negative (.)
[2023-08-18 17:07] LABS: Arsenic 7245 2 ug/L (0-9); Lead, Blood < 1.0 ug/dL (0.0-3.4); Mercury, Blood 85324 < 1.0 ug/L (0.0-14.9); PROEL- A/G Ratio 1.9 (0.7-1.7); PROEL- Albumin 4.5 g/dL (2.9-4.4); PROEL- Alpha-1 Globulin 0.2 g/dL (0.0-0.4); PROEL- Alpha-2 Globulin 0.6 g/dL (0.4-1.0); PROEL- Beta Globulin 0.7 g/dL (0.7-1.3); PROEL- Gamma Globulin 0.9 g/dL (0.4-1.8); PROEL- Globulin, Total 2.4 g/dL (2.2-3.9); PROEL- TOTAL PROTEIN 6.9 g/dL (6.0-8.5); PROEL-M-Spike Not Observed g/dL (Not Observed)
== END | disposition home or self-care (01) ==
LOC: LAB 13:20
PROVIDERS: PCP Family Medicine; Visit Provider Psychiatry & Neurology Sleep Medicine
DX: R20.2 Paresthesia of skin (principal); R53.1 Weakness; G62.9 Polyneuropathy, unspecified
CPT/HCPCS: 36415; 82175; 82550; 82607; 82728; 83540; 83550; 83655; 83825; 84165; 84439; 84443; 85652; 86038

== ENCOUNTER → 2023-09-13 | Outpatient (CLI) | payer OTHER, SELFPAY ==
--- NOTE | 2023-09-13 06:45 | MRI_ITS ---
STUDY: MRI THORACIC SPINE WITHOUT CONTRAST REASON FOR EXAM: Male, 28 years old. HEMANGIOMA TECHNIQUE: Standardized fat and water weighted pulse sequences were obtained in the sagittal and axial planes. COMPARISON: None. FINDINGS: Normal kyphosis of the thoracic spine. There is no substantial scoliosis. Hemangioma the T1 vertebral body. T1-2, T2-3, T3-4, T4-5, T5-6, T6-7, T7-8, T8-9, T9-10, T10-11, T11-12: Normal endplates. Normal disc hydration, heights and morphology of the corresponding intervertebral discs. Normal central canal and intervertebral neural foramina at the corresponding levels. Normal visualized thoracic cord. Normal conus medullaris that terminates at the L1. The soft tissue structures are unremarkable. MRI/Spine Thoracic (Routine) IMPRESSION: Normal unenhanced MRI examination of the thoracic spine. Electronically Signed: Cuauhtemoc Reddy MD at 22:15 EST ,
--- NOTE | 2023-09-13 06:46 | MRI_ITS ---
HISTORY: Radiculopathy, numbness/tingling of lower extremities. TECHNIQUE: Multiplanar and multisequence MR images of the lumbar spine were obtained without intravenous contrast. 123 images. COMPARISON: None. FINDINGS: VERTEBRAE: Vertebral body heights maintained with small Schmorl''s nodes at multiple levels. Mild degenerative endplate changes of L4-5 and L5-S1. No other significant bone marrow signal abnormality. ALIGNMENT: No anterior or posterior subluxation. CONUS: Normal morphology and position of the conus medullaris at L1. INTERVERTEBRAL DISCS: T12-L1: No significant posterior disc protrusion, central canal stenosis, or foraminal narrowing based on the sagittal images. L1-2: No significant posterior disc protrusion, central canal stenosis, or foraminal narrowing. L2-3: No significant posterior disc protrusion, central canal stenosis, or foraminal narrowing. Mild facet arthropathy with a 3 mm posterior synovial cyst on the right. L3-4: No significant posterior disc protrusion, central canal stenosis, or foraminal narrowing. L4-5: Very mild posterior disc protrusion and mild facet arthropathy without significant central canal stenosis or foraminal narrowing. L5-S1: No significant posterior disc protrusion, central canal stenosis, or foraminal narrowing. SOFT TISSUES: No paraspinal fluid collection. MRI/Spine Lumbar (Routine) IMPRESSION: Very mild degenerative change of L4-5. No significant lumbar spinal canal stenosis or foraminal narrowing. Electronically Signed: Treva Rodríguez MD at 11:46 EST ,
== END | disposition home or self-care (01) ==
LOC: MRI 06:41
PROVIDERS: PCP Family Medicine; Referring Provider Family Medicine; Visit Provider Family Medicine
DX: M48.061 Spinal stenosis, lumbar region without neurogenic claudication (principal); D18.00 Hemangioma unspecified site
CPT/HCPCS: 72146; 72148

== ENCOUNTER 2024-02-23 06:03 | Day surgery (SDC) | payer OTHER, SELFPAY ==
[2024-02-23] VITALS (8 sets, daily range): BP systolic 123–146; BP diastolic 52–96; PULSE 72–96; RESP 16; TEMP 36.3–37; O2SAT 97–100; BMI 28.3
[2024-02-23] MEDS: Lactated Ringers 1,000 ML 15 ML IV (06:36)
--- NOTE | 2024-02-23 07:31 | PCM.HP.BLA ---
History and Physical MR#: [id number] Acct: [id number] Name: BEATA JENSEN Rep #: [id number] : 1995 Provider: Dr. El Jaramillo MD Age/Sex: 28/M Location: [facility] [place] Status: Signed Intake Vital Signs 07/06/2307:38 12/22/2409:14 Height 5 ft 10 in 5 ft 10 in Weight: 198 lb BMI 28.4 Intake Visit Reasons: CERVICAL SPINE Accompanied by: Self Is patient in pain?: Yes Pain scale (1-10): 2 Allergies No Known Allergies Allergy (Unverified 12/24/23 08:11) Medications NK 07/06/23 [History Confirmed 12/24/23] PFSH Surgical History Hx of tonsillectomy Family History Father Myocardial infarctionGrandfather Cancer Social History Smoking Status: Never smoker alcohol intake: current alcohol intake frequency: holidays/special occasions only HPI CERVICAL SPINE Details: This documentation accurately reflects the service provided and the decisions made by me, Dr. El Jaramillo MD 12/24/23 0805. Part of today?s visit was documented by Debby Reich ATC, acting as scribe. BEATA JENSEN is a 28 year old M here today for cervical spine pain. Patient states that it used to be really his neck with the numbness and tingling that went down to his legs that really bother him but now it is the ulnar neuropathy that is bothering him. He states he does not really have much pain its just numbness, tingling and the loss of strength and embedded software architect that is mostly bothering him. Patient states he gets the pain from his elbows down into his hands and fingers. He states he did wear elbow braces for a while and it did give him some relief. He states he wore the braces for about 6 weeks. Patient states that now when he is trying to pick anything up or even turn a screwdriver he gets a burning sensation and loss of strength. He states that he gets this in both of the arms. Patient states he did have an EMG done that showed he has this neuropathy in both upper extremities. Patient denies taking anything for the pain. Reagan continues to have significant numbness in the ulnar aspects of the forearm and hand on both sides equally. He is right-hand dominant. He tried using the cubital tunnel splints for about 6 weeks which did not seem to help. With time he has started to notice difficulty with dexterity in small tools and having trouble with embedded software architect strength. His previous visit involves symptoms of balance issues which have now gotten much better. He has occasional numbness in lower extremities which is intermittent and not bothersome at all. 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 Following his his previous history: 07/06/23: BEATA JENSEN is a 28 year old M here today for neck pain. Pt states that this has been going on for 4 months. Pt states that numbness and tingling starting at the elbow going down both arms and into the hands and fingers. Pt states that pins and needle feeling goes to the base of skull and down to the left upper ribcage. Pt states that flexing his neck downward is when he feels the numbness and tingling in ribcage. 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 Reagan started having symptoms about 4 months ago. He denies any inciting events. He mentions of tingling numbness and vague weakness of muscles in all 4 extremities without any obvious dermatomal or myotomal pattern. He does however have significantly prominent bilateral ulnar forearm and hand numbness. He is right-hand dominant. He denies any axial neck pain but does mention of occasional vague tingling numbness with neck range of motion. He also mentions of occasional balance difficulties but denies any falls. He is right-hand dominant. He has undergone EMG of all 4 extremities which suggest bilateral moderate cubital tunnel syndrome, mild left carpal tunnel syndrome, and C7 radiculopathy. He has researched a bit on cubital tunnel syndrome and has ordered splints on [employer]. He also occasionally feels tingling numbness and heaviness in the left-sided rib cage with neck movements. Ortho Exam General General: Yes no acute distress Neurologic: Yes alert and Yes oriented x3 Spine SPINE TESTING CERVICAL THORACIC LUMBAR Musculoskeletal Strength 0=absent - 5=normal Details: Examination of the neck and back shows no obvious tenderness. Neurologic evaluation of upper extremity shows 5 x 5 power in all muscles normal sensations in all dermatomes. Examination of both elbow shows Tinel sign positive on the ulnar nerve at the elbow on both sides. Coding Level of Care Code Off vis,est,level 4 Diagnoses Cubital tunnel syndrome of both upper extremities G56.23 Time Spent (min) 35 Assessment and Plan Assessment and Plan (1) Cubital tunnel syndrome of both upper extremities: Status: Acute Plan I have went over patient's cervical MRI and EMG of all 4 extremities with the patient. I also reviewed his MRI thoracic and lumbar spine done in August. He has MRI thoracic and lumbar do not show any obvious neural compression. There is posterior epidural lipomatosis in the thoracic spine. Cervical spine shows mild left C6-7 foraminal stenosis but without significant disc degeneration. His EMG from May is most significant for moderate bilateral cubital tunnel syndrome. I explained to him that his spine imaging throughout does not show any significant findings that would need surgical intervention. His main symptoms as well as EMG finding of cubital tunnel syndrome was discussed in detail. Treatment options for cubital tunnel include elbow extension splinting versus cubital tunnel release surgically. Patient has used the splint more than 6 weeks and still continues to have significant symptoms such that has not dexterity and numbness are becoming a progressively worsening problem. I recommended surgical cubital tunnel release. Possibility of nerve transposition was discussed. All risk benefits and alternatives were discussed in detail. The risks include but are not limited to infection, bleeding, injury to nerves and vessels, numbness around the incision, need for further surgery, recurrent nerve compression, persistent numbness and weakness, hematoma, nerve injury, elbow stiffness, DVT, pulm embolism, tourniquet pain, compartment syndrome, cardiopulmonary event. Patient understands and agrees to proceed with surgery. Consent was signed. I recommended we start with the right side at this is his dominant side. Restrictions after the surgery were discussed. Patient was in agreement.
[2024-02-23] MEDS: Cefazolin 2 GM in 0.9% Normal Saline (100mL Bag) 100 ML IV (07:37)
[2024-02-23] MEDS: Ropivacaine 0.5% 30 ML Vial (08:16)
[2024-02-23] MEDS: Lidocaine 1% (20 ml mdv) 20 ML Vial (08:16)
--- NOTE | 2024-02-23 08:55 | PCM.OPRPT ---
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 POSTOPERATIVE DIAGNOSIS: Right cubital tunnel syndrome. PROCEDURE PERFORMED: Right open cubital tunnel release. CPT 37790 INDICATIONS FOR THE PROCEDURE: The patient is a 28-year-old gentleman, who presents with numbness in ulnar fingers and difficulty with dexterity and EMG, consistent with cubital tunnel syndrome. All conservative management and failed. After a discussion of the risks and benefits of the procedure, consent was signed for the procedure. DETAILS OF PROCEDURE: Patient was met in the preoperative holding area and the correct side was marked as the operative extremity. The patient was brought back to the operative suite and a hand table was placed. A timeout was performed which correctly identified the procedure to be performed, the operative site as well as the team members. Next, general anesthesia was induced. Patient was prepped and draped in usual sterile fashion. Sterile tourniquet was applied in the upper arm. Incision was taken in a longitudinal fashion going through the midpoint between the medial epicondyle of the humerus and olecranon process going proximally and distally in a curved fashion. Sharp dissection was performed with scissors and presumed branches of the antecubital nerves were preserved. The left ulnar nerve was identified just proximal to the cubital tunnel. [place] scissors were carefully used to open the fascial covering over the ulnar nerve and this release was carried down proximally along the medial intermuscular septum up to 3 inches above the elbow. Next the cubital tunnel retinaculum was released. Distally [place] ligament was released and the nerve was freed from any tight spaces about 2 inches distal to the elbow. Finger was then passed along the ulnar nerve proximally and distally to make sure there is no tight bands beyond the incision proximally and distally. Once adequate decompression of the ulnar nerve was performed, the elbow was flexed and extended to make sure the ulnar nerve was not snapping at the medial epicondyle. Adequate decompression was achieved and decision was made not to transpose. Adequate irrigation was performed. Tourniquet was released. Hemostasis was achieved. Closure was done in layers with 3-0 Vicryl for subcutaneous tissue and 4 Monocryl for the skin. Steri-Strips were applied. Gauze and Kerlix dressing and Jorge bandage was applied. Next, the patient was transported to the PACU in stable condition. I was present for the entire case. ESTIMATED BLOOD LOSS: Minimal. COMPLICATIONS: None. DISPOSITION: The patient will be discharged home when pain is controlled from PACU. Follow up in 2 weeks. Avoid elbow flexion. Light weightbearing restrictions. Surgeon: El Jaramillo Procedures Musculoskeletal [id number]: Other Procedure See Report
[2024-02-23] MEDS: Acetaminophen 325 MG Tablet PO (09:40)
[2024-02-23] MEDS: oxyCODONE 5 MG Tablet PO (09:40)
== END 2024-02-23 10:23 | disposition home or self-care (01) ==
LOC: SDC 06:03 → AC 06:04
PROVIDERS: PCP Family Medicine; Referring Provider Orthopaedic Surgery Orthopaedic Surgery of the Spine; Visit Provider Orthopaedic Surgery Orthopaedic Surgery of the Spine
PROC: (CPT 64721; principal; 2024-02-23 07:15)
DX: G56.23 Lesion of ulnar nerve, bilateral upper limbs (principal)
CPT/HCPCS: 64718; J2405

== ENCOUNTER → 2024-05-16 | Outpatient (CLI) | payer OTHER, SELFPAY | END | disposition home or self-care (01) | LOC: PSN 12:26 | PROVIDERS: PCP Nurse Practitioner Family; Referring Provider Nurse Practitioner Family; Visit Provider Nurse Practitioner Family | DX: R00.2 Palpitations (principal); G47.10 Hypersomnia, unspecified | CPT/HCPCS: 93225; 93226 ==

== ENCOUNTER → 2024-06-29 | Outpatient (CLI) | payer OTHER, SELFPAY ==
[2024-06-29 12:43] LABS: Vitamin B12 473 pg/mL (211-911); Vitamin D,25 Hydroxy 50.4 ng/mL
== END | disposition home or self-care (01) ==
LOC: VSLAB 09:24
PROVIDERS: PCP Nurse Practitioner Family; Visit Provider Nurse Practitioner Family
DX: E56.9 Vitamin deficiency, unspecified (principal); G47.10 Hypersomnia, unspecified
CPT/HCPCS: 36415; 82306; 82607; 84443

== ENCOUNTER 2024-07-04 08:32 | Day surgery (SDC) | payer OTHER, SELFPAY ==
[2024-07-04] VITALS (7 sets, daily range): BP systolic 113–120; BP diastolic 69–86; PULSE 69–80; RESP 16–18; TEMP 36.4–36.8; O2SAT 97–99; BMI 27.4
--- NOTE | 2024-07-04 08:44 | PCM.PRE.AN2 ---
ASA Classification* ASA Classification ASA Classification: 2 Assessment & Plan Anesthesia* Anesthesia Assessment Anesthesia Assessment: Discussed sedation and/or anesthesia options, risks, benefits, and alternatives with patient/parents/legal guardian/POA. Questions invited. The patient/parents/legal guardian/POA seems to understand and agrees to proceed with anesthesia plan. Reviewed the physical assessment, medical history, allergy history and patient home medications list prior to surgery/procedure/anesthetic and documented any changes. Performed airway and anesthesia risk assessments. Anesthesia Type Anesthesia Type: MAC (see written pre anesthesia record for full assessment) Anesthesia Focused Assessment* Airway Assessment Mouth opens: >3 cm Mallampati Score: II Focused Labs Anesthesia Preop lab: CBC WBC 5.5 K/mm3 (4.4-11.0) 06/29/24 09:29 RBC 5.30 M/mm3 (4.6-6.2) 06/29/24 09:29 Hgb 15.5 g/dL (13.0-16.5) 06/29/24 09:29 Hct 44.3 % (40-54) 06/29/24 09:29 Plt Count 211 K/mm3 (150-450) 06/29/24 09:29 CHEMISTRY Potassium 4.0 mmol/L (3.5-5.1) 06/29/24 09:29 Sodium 136 mmol/L (136-145) 06/29/24 09:29 Magnesium 2.1 mg/dL (1.6-2.6) 01/22/23 09:25 Phosphorus 2.9 mg/dL (2.5-4.9) 06/29/24 09:29 BUN 13 mg/dL (7-18) 06/29/24 09:29 Creatinine 1.22 mg/dL (0.70-1.30) 06/29/24 09:29 Glucose 111 mg/dL (74-106) H 06/29/24 09:29 TSH 1.900 uIU/mL (0.358-3.740) 06/29/24 09:25 COAG Pre-Assessment Diagnosis/Proposed Procedure Planned Operative Procedure(s): EGD Anesthesia History 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 When Was Last Pacemaker Check QUESTION #4 FULL TEXT: You/Your Family Experience fever (hyperthermia) with Anesthesia Last Oral Intake Last Oral intake: Last Oral Intake NPO since Meds taken in AM with sips of water? Meds patient instructed to take am of surgery PONV PONV - casino floor runner: PONV - casino floor runner Female No 06/28/24 13:41 HX of Motion Sickness No 06/28/24 13:41 HX of N/V After Surgery No 06/28/24 13:41 Non-Smoker Yes 06/28/24 13:41 Duration of Surgery greater No 06/28/24 13:41 than 60 minutes Number of Risk Factors 1 06/28/24 13:41 PONV Score Low Risk 06/28/24 13:41 Height & Weight Height & Weight: Anesthesia: Height & Weight Height 5 ft 10 in 06/01/24 13:03 Respiratory Assessment Respiratory Assessment - casino floor runner: Respiratory Tract Infection Hx - casino floor runner Hx Respiratory Tract Infection No 06/28/24 13:41 STOP Sleep Apnea STOP Sleep Apnea - casino floor runner: STOP Sleep Apnea - casino floor runner Hx Hypertension No 06/28/24 13:41 Hx Sleep Apnea No 06/28/24 13:41 CPAP BIPAP Do you snore loudly (louder No 06/28/24 13:41 than talking or can be heard Do you often feel tired/ No 06/28/24 13:41 fatigued/ sleepy during daytime? Has anyone observed you stop No 06/28/24 13:41 breathing during sleep? STOP Results Negative 06/28/24 13:41 QUESTION #5 FULL TEXT : Do you snore loudly (louder than talking or can be heard through closed doors)? Tobacco Use History Tobacco Use History - casino floor runner: Tobacco Use History - casino floor runner Tobacco Use Smoking Status Never smoker 06/28/24 13:41 Hx Tobacco Use No 06/28/24 13:41 Years Smoking Packs Smoked per Day Smoking Cessation Date was within the last 15 years Hx Smoking Cessation Date Hx Smoking Cessation Counseling Hematologic Medial History Hematologic Hx - casino floor runner: Hematologic Medical Hx - strategic consultant Hx of Blood Transfusion No 06/28/24 13:41 Hx of Transfusion in last 3 No 06/28/24 13:41 Months Date of Last Transfusion (if within last 3 months) Ever experience any problems No 06/28/24 13:41 with transfusion(s)? Specify any problems Hx of Preganancy in last 3 N/A 06/28/24 13:41 Months Nurse Filling Out Transfusion VCHRISTIN 06/28/24 13:41 & Questions: Date: 06/28/24 06/28/24 13:41 Time: 13:41 06/28/24 13:41 Patient unable to answer at this time (ie. confused, unrespo /Reproduction History /Reproductive History - casino floor runner: /Reproductive Hx- casino floor runner Hx Now Gestational Age (in weeks): EDC: Hx Hx Para Hx Section SAB PFSH Medical History History of Holter monitoring Alcohol use Non-smoker Home Medications ?Medication ?Instructions ?Recorded ?Last Taken ?Type NK 03/15/24 Unknown History Allergy/AdvReac Type Severity Reaction Status Date / Time No Known Allergies Allergy Verified 06/28/24 13:38 Family History Father Myocardial infarction Grandfather Cancer Surgical History Hx of surgical procedure Hx of tonsillectomy Social History Smoking Status: Never smoker alcohol intake: current alcohol intake frequency: holidays/special occasions only Review of Systems (Anesthesia) ROS Narrative System reviewed and no additional complaints, except as documented.
--- NOTE | 2024-07-04 09:34 | HP.PCM_ITS ---
History and Physical Date of Admission: 07/04/24 Intake Vital Signs 02/22/2406:27 06/01/2413:03 Height 5 ft 10 in 5 ft 10 in Weight: 195 lb BMI 27.9 BP 126/82 H Blood Pressure Location Rt brachial Position Sitting Respiration 17 Pulse 90 Pulse Source Monitor Pulse Oximetry (%) 99 Oxygen Delivery Method room air Intake Visit Reasons: GERD Chief Complaint: gerd Allergies No Known Allergies Allergy (Unverified 06/01/24 13:05) Medications ?Medication ?Instructions ?Recorded ?Confirmed ?Type NK 03/15/24 06/01/24 History Have you fallen in the past year?: No PFSH Medical History Alcohol use Non-smoker Surgical History Hx of tonsillectomy Family History Father Myocardial infarctionGrandfather Cancer Social History Smoking Status: Never smoker alcohol intake: current alcohol intake frequency: holidays/special occasions only HPI HPI HPI: Patient is a 28-year-old male here for chronic GERD. He reports that is very mild but it lasts about 1/2-hour to an hour after eating if he eats something spicy. And a normal basis he does not have any acid reflux. He says this has been going on for many years. He was sent here for evaluation with EGD. He is not on any medications currently. ROS General General: No weight change, appetite, fatigue, colon cancer, breast cancer or weakness HEENT HEENT: No difficulty swallowing, eye injury, eye surgery, swollen glands or hoarseness Endo Endocrine: No thyroid disease, diabetes mellitus, thyroid cancer, Hair loss, heat intolerance or cold intolerance Skin Skin: No rash or changing moles Musc Musculoskeletal: No back problems, arthritis, rheumatoid arthritis, gout or joint pain Cardio Cardiovascular: No murmur, pacemaker, heart disease, atrial fibrillation, high blood pressure, heart attack, heart stent, palpitations, shortness of breat with exertion or chest pain Psych Psychiatric: Yes anxiety; No depression or hearing voices Resp Respiratory: No shortness of breath, No sleep apnea, No cough, No COPD, No asthma, No emphysema and No wheezing Gastro Gastrointestinal: No abdominal pain, No nausea or vomiting, No diarrhea, No constipation, No blood in stool, Yes acid reflux, No hemorrhoids, No ulcers, No gallbladder problem and No black,tarry stools Spencer Hematologic: No blood thinners, No blood disorders, No bleeding, No anemia and No blood clots Neuro Neurologic: No system reviewed and no additional complaints, except as documented, No as per HPI, No abnormal gait, No abnormal hearing, No abnormal movements, No abnormal speech, No behavioral changes, No burning sensations, No confusion, No convulsions, No disequilibrium, No dizziness, No localized w eakness, No frequent falls, No headache(s), No lack of coordination, No loss of vision, No memory loss, No numbness, No other visual disturbances, No radicular pain, No restless legs, No sensory deficit, No syncope, No tingling, No tremor(s), No weakness and No other Exam Const General: cooperative Orientation: alert and oriented x3 HENMT Head: normal to inspection Neck Neck: normal visual inspection and full ROM Chest Chest palpation & inspection: normal inspection of the chest Resp Effort & Inspection: normal respiratory effort Auscultation: clear to auscultation bilaterally Cardio Rate: regular rate Rhythm: regular rhythm GI Inspection: non-distended Palpation: soft and nontender Skin General: no rashes or lesions noted Neuro General: patient alert and patient oriented x3 Extrem General: full ROM Psych Appearance: grossly normal Mental Status: mental status grossly normal Assessment and Plan Assessment and Plan (1) GERD (gastroesophageal reflux disease): Status: Acute Plan: Patient has longstanding history of mild GERD. I discussed EGD for evaluation for French's esophagus or esophagitis and the patient is interested in having an EGD performed. I also advised him to start Pepcid as it seems like his acid reflux is mild. He is not interested in reflux surgery at this time. I explained endoscopy in detail to the patient. I explained the risks including but not limited to stroke or heart attack with anesthesia, perforation of the GI tract, bleeding, infection. I explained that any of these could necessitate further emergency surgery. The patient understands and all questions were answered sufficiently. The patient wishes to proceed with procedure. Elton Singh MD Pager: [facility] [address] [place] [address], [address] [place] [address] Office: I have examined the patient and the H&P has been reviewed. There are no clinical changes since date of exam.
--- NOTE | 2024-07-04 09:49 | OP.CCLET_ITS ---
07/04/2024 Rhett Asencio [facility], Supervisor Decorating-c Re : Upper GI endoscopy procedure for Fabio Simpson Dear Luis M This procedure was performed on Thursday, July 04, 2024. My impressions and recommendations are as follows: Impressions : - Normal esophagus. - Normal stomach. - Normal examined duodenum. - No specimens collected. Recommendations : - Discharge patient to home. - Resume previous diet. - Continue present medications. My findings are described in the full procedure note, which is enclosed. If I can be of further assistance, please feel free to contact me at Doctor phone number(s): , Work: . Sincerely, Elton Singh MD 07/04/2024 9:48:10 AM This report has been signed electronically.
--- NOTE | 2024-07-04 09:49 | OP.EGD_ITS ---
Patient Name: Fabio Simpson Procedure Date: 07/04/2024 9:42 AM Date of : 1995 Age: 29 Procedure: Upper GI endoscopy Indications: Heartburn, Gastro-esophageal reflux disease Providers: Elton Singh MD Referring MD: Elton Singh MD Medicines: Propofol per Anesthesia Patient Profile: This is a 29 year old male. Refer to note in patient chart for documentation of history and physical. Complications: No immediate complications. Procedure: Pre-Anesthesia Assessment: - Prior to the procedure, a History and Physical was performed, and patient medications and allergies were reviewed. The patient's tolerance of previous anesthesia was also reviewed. The risks and benefits of the procedure and the sedation options and risks were discussed with the patient. All questions were answered, and informed consent was obtained. Prior Anticoagulants: The patient has taken no anticoagulant or antiplatelet agents. After reviewing the risks and benefits, the patient was deemed in satisfactory condition to undergo the procedure. After obtaining informed consent, the endoscope was passed under direct vision. Throughout the procedure, the patient's blood pressure, pulse, and oxygen saturations were monitored continuously. The was introduced through the mouth, and advanced to the third part of duodenum. The upper GI endoscopy was accomplished without difficulty. The patient tolerated the procedure well. Scope In: 9:44:36 AM Scope Out: 9:46:14 AM Total Procedure Duration Time 0 hours 1 minute 38 seconds Findings: The esophagus was normal. The stomach was normal. The examined duodenum was normal. Impression: - Normal esophagus. - Normal stomach. - Normal examined duodenum. - No specimens collected. Recommendation: - Discharge patient to home. - Resume previous diet. - Continue present medications. Procedure Code(s): --- Professional --- 66864, Esophagogastroduodenoscopy, flexible, transoral; diagnostic, including collection of specimen(s) by brushing or washing, when performed (separate procedure) Diagnosis Code(s): --- Professional --- R12, Heartburn K21.9, Gastro-esophageal reflux disease without esophagitis CPT copyright 2021 [employer]. All rights reserved. The codes documented in this report are preliminary and upon vp patient review may be revised to meet current compliance requirements. Elton Singh MD 07/04/2024 9:48:10 AM This report has been signed electronically. Number of Addenda: 0 Note Initiated On: 07/04/2024 9:42 AM
--- NOTE | 2024-07-04 09:51 | PCM.POST.ANE ---
Anesthesia: Postop Eval I Current Vital Signs Temperature: 97.8 F Pulse Rate: 78 Blood Pressure: 116/77 Respiratory Rate: 16 Pulse Ox: 98 Oxygen Delivery Method: Room Air Assessment Airway patent: Yes Spontaneous unlabored respirations: Yes Mental status: Awake and Calm nausea: No Vomiting: No Anesthesia Complication: No Fluid Hydration Crystalloid volume administer (ml): 10 Total IV fluid infused: 10 Progress Note Anesthesia document: Postop Eval 1 completed: Yes
--- NOTE | 2024-07-04 10:05 | PCM.POSTANE2 ---
Anesthesia Postop Eval I Sum Postop Eval Completion status Anesthesia document: Postop Eval 1 completed: Yes Anesthesia Postop Eval I Summary Anesthesia Postop Eval I Summary: Anesthesia Postop Eval I: Assessment Summary Airway patent Yes 07/04/24 09:52 SODA TESTER.[email or web address] Spontaneous unlabored Yes 07/04/24 09:52 SODA TESTERLE respirations Mental status Awake,Calm 07/04/24 09:52 SODA TESTER.VERN nausea No 07/04/24 09:52 SODA TESTER.VERN Vomiting No 07/04/24 09:52 SODA TESTERLE Anesthesia Postop Eval I: Fluid Summary Crystalloid volume administer 10 07/04/24 09:52 RICHARD.VERN (ml) Colloids volume administered ( ml) Blood Product volume administered (ml) Total IV fluid infused 10 07/04/24 09:52 IVIS Anesthesia Postop Eval I: Summary Notes Anesthesia Complication No 07/04/24 09:52 IVIS Anesthesia Complication Comment: Post-operative progress note Anesthesia: Postop Eval II Evaluation Mental status: Awake Pain Level: 0 nausea: No Vomiting: No
== END 2024-07-04 10:37 | disposition home or self-care (01) ==
LOC: EN 08:33 → AC 08:35
PROVIDERS: PCP Nurse Practitioner Family; Referring Provider Nurse Practitioner Family; Visit Provider Surgery
PROC: 0DJ08ZZ Inspection of Upper Intestinal Tract, Via Natural or Artificial Opening Endoscopic (ICD-10-PCS; CPT 43235; principal; 2024-07-04 09:25)
DX: K21.9 Gastro-esophageal reflux disease without esophagitis (principal)
CPT/HCPCS: 43235

== ENCOUNTER → 2024-07-05 | Outpatient (CLI) | payer OTHER, SELFPAY ==
--- NOTE | 2024-07-05 12:38 | ECHOD_ITS ---
Reason For Study: PALPITATIONS Procedure This was a 2D Doppler, Color Flow transthoracic echocardiogram. Exam performed in department. Left Ventricle Normal LV size. Mid cavitary false tendon noted. Left ventricular systolic function is normal. The left ventricular ejection fraction is 60 %. No regional wall motion abnormalities noted. Right Ventricle Normal RV size. Normal systolic function. Atria Normal left atrium. Normal right atrium. Mitral Valve Equivocal mitral valve prolapse. Tricuspid Valve Normal tricuspid valve. Aortic Valve Trisinus/trileaflet aortic valve. Pulmonic Valve Normal pulmonic valve. Great Vessels Normal aortic root. The pulmonary artery is normal size. Normal inferior vena cava. Pericardium/Pleural No pericardial effusion. MMode/2D Measurements & Calculations LVIDd: 5.4 cm IVSd: 0.77 cm LVOT diam: 2.1 cm LVIDs: 3.4 cm LVPWd: 0.75 cm LVOT area: 3.5 cm2 RVDd: 3.2 cm FS: 37.6 % asc Aorta Diam: 2.7 cm LAV(MOD-bp): 52.9 ml LVAd ap4: 33.6 cm2 LAV(MOD-bp) Indexed: 25.3 ml/m2 LVLd ap4: 8.8 cm LAV(MOD-sp2): 51.5 ml EDV(MOD-sp4): 106.4 ml LAV(MOD-sp4): 49.8 ml EDV(sp4-el): 108.7 ml LVAs ap4: 19.5 cm2 LVLs ap4: 7.5 cm ESV(MOD-sp4): 42.8 ml ESV(sp4-el): 42.9 ml EF(MOD-sp4): 59.8 % EF(sp4-el): 60.5 % LVAd ap2: 28.4 cm2 SV(MOD-sp4): 63.6 ml SV(MOD-sp2): 46.9 ml LVLd ap2: 8.8 cm EDV(MOD-sp2): 76.0 ml EDV(sp2-el): 77.5 ml LVAs ap2: 15.8 cm2 LVLs ap2: 7.3 cm ESV(MOD-sp2): 29.1 ml ESV(sp2-el): 29.0 ml EF(MOD-sp2): 61.7 % SV(sp4-el): 65.8 ml LA A4 area: 17.7 cm2 RA A4 area: 18.0 cm2 TAPSE: 2.2 cm Time Measurements MV dec time: 0.15 sec Doppler Measurements & Calculations MV E max owen: 73.4 cm/sec Lat Peak E' Owen: 17.3 cm/sec Med Peak E' Owen: 15.5 cm/sec MV A max owen: 65.2 cm/sec E/E' lat: 4.2 E/E' med: 4.7 MV E/A: 1.1 MV V2 max: 111.6 cm/sec MV P1/2t max owen: 101.3 cm/sec Ao V2 max: 113.3 cm/sec MV max P.0 mmHg MV P1/2t: 45.6 msec Ao max P.1 mmHg MV V2 mean: 52.3 cm/sec MV dec slope: 650.3 cm/sec2 Ao V2 mean: 86.3 cm/sec MV mean P.4 mmHg Ao mean P.3 mmHg MV V2 VTI: 19.8 cm MVA(P1/2t): 4.8 cm2 Ao V2 VTI: 25.0 cm MVA(VTI): 3.4 cm2 AV (velocity ratio): 0.76 GUDELIA(I,D): 2.7 cm2 GUDELIA(V,D): 2.8 cm2 LV V1 max: 88.8 cm/sec SV(LVOT): 67.1 ml PA V2 max: 112.6 cm/sec LV V1 max P.2 mmHg PA max PG (full): 3.5 mmHg LV V1 mean P.8 mmHg PA V2 mean: 74.4 cm/sec LV V1 mean: 63.2 cm/sec PA V2 VTI: 21.0 cm LV V1 VTI: 19.1 cm ECHO/Echo Complete Interpretation Summary Normal LV size. Left ventricular systolic function is normal. The left ventricular ejection fraction is 60 %. Mid cavitary false tendon noted. Equivocal mitral valve prolapse. Ordering Physician: Rhett Asencio Referring Physician: Rhett Asencio Performed By: Osmar STOVER RDCS, Kristel and Student
== END | disposition home or self-care (01) ==
LOC: CVS 12:37
PROVIDERS: PCP Nurse Practitioner Family; Referring Provider Nurse Practitioner Family; Visit Provider Nurse Practitioner Family
DX: R00.2 Palpitations (principal)
CPT/HCPCS: 93306; A4216

== ENCOUNTER → 2024-07-20 | Outpatient (CLI) | payer OTHER, SELFPAY | END | disposition home or self-care (01) | LOC: SL 13:04 | PROVIDERS: PCP Nurse Practitioner Family; Referring Provider Nurse Practitioner Family; Visit Provider Nurse Practitioner Family | DX: G47.10 Hypersomnia, unspecified (principal) | CPT/HCPCS: 95806 ==

== ENCOUNTER → 2025-01-26 | Outpatient (CLI) | payer BC, SELFPAY ==
--- NOTE | 2025-01-26 11:04 | VDLE_ITS ---
Reason For Study Reason For Study: LLE Pain RIGHT LEFT CFV is compressible, spontaneous, phasic, competent GSV is normal. and demonstrates normal augmentation. CFV is compressible, spontaneous, phasic, competent, Procedure and demonstrates normal augmentation. This is a venous duplex using B-mode, color flow and FV is compressible, spontaneous, phasic, competent spectral Doppler. and demonstrates normal augmentation. Exam performed in department. POP V is compressible, spontaneous, phasic, competent The exam was diagnostic. and demonstrates normal augmentation. A preliminary report was called and/or faxed to T/P Trunk is compressible. Jo Robles BEND UP-C. PTV is compressible. LT PerV is compressible. VL/Venous Duplex US, Unilateral Interpretation Summary Deep veins of the left lower extremity are patent and compressible segmentally. There is no evidence of left lower extremity deep vein thrombosis. The left great saphenous vein appears patent an d compressible segmentally. Ordering Physician: Jo Robles Referring Physician: Jo Robles Performed By: Perez Connelly RVT
== END | disposition home or self-care (01) ==
LOC: CVS 11:03
PROVIDERS: PCP Nurse Practitioner Family; Referring Provider Nurse Practitioner Family; Visit Provider Nurse Practitioner Family
DX: S89.90XA Unspecified injury of unspecified lower leg, initial encounter (principal); M79.662 Pain in left lower leg; X58.XXXA Exposure to other specified factors, initial encounter
CPT/HCPCS: 93971

== ENCOUNTER → 2025-02-28 | Outpatient (CLI) | payer BC, SELFPAY ==
[2025-02-28 12:38] LABS: Absolute Lymphocyte Count 1.59 X10^3/uL (0.83-4.51); Absolute Neutrophil Count 2.9 X10^3/uL (2.0-7.7); Basophil# 0.04 X10^3/uL; Basophil% 0.8 % (0-1); Eosinophil# 0.08 X10^3/uL; Eosinophils% 1.6 % (0-5); Hematocrit 41.6 % (40-54); Lymphocyte # 1.59 X10^3/ul (0.83-4.51); Lymphocyte % 31.2 % (19-41); Mean Corp Hgb Conc 36.1 g/dL (32-36); Mean Corpuscular Volume 83.2 fL (80-94); Mean Platelet Vol. 10.3 fl (6.2-12.0); Monocyte# 0.46 X10^3/uL; NRBC Flagged by Analyzer 0 % (0-5); Neutrophil # 2.92 X10^3/uL (2.7-7.7); Neutrophil % 57.2 % (47-70); Platelet Count 208 K/mm3 (150-450); RBC Distribution Width CV 12.8 % (11.6-14.6); RBC Distribution Width SD 38.5 fl (35.1-43.9); White Blood Count 5.1 K/mm3 (4.4-11.0)
[2025-02-28 12:52] LABS: D-Dimer Quantitative (DVT/PE) < 0.27 FEU/ug/m (0.27-0.49)
[2025-02-28 13:03] LABS: AST(SGOT) 23 U/L (<=37); Alanine Aminotransfer ALT/SGPT 21 U/L (<=46); Albumin, Serum 5.1 g/dL (3.5-5.0); Alkaline Phosphatase 45 U/L (40-129); Anion Gap 13 (5-15); BUN 13 mg/dL (4-19); BUN/Creat Ratio 12.4 RATIO (10-20); CPK Total, Creatine Kinase 173 U/L (24-195); Carbon Dioxide 24.8 mmol/L (21.0-32.0); Chloride 100 mmol/L (98-108); Creatinine, Serum 1.07 mg/dL (0.70-1.20); EST Glomerular Filtration Rate 95 (>60); Globulin 2.5 g/dL (2.2-4.2); Glucose 102 mg/dL (70-99); Potassium 3.7 mmol/L (3.3-5.1); Protein, Total 7.6 g/dL (5.9-8.4); Sodium Level 138 mmol/L (133-145); Total Bilirubin 2.28 mg/dL (0.00-1.30)
== END | disposition home or self-care (01) ==
LOC: VSLAB 12:11
PROVIDERS: PCP Nurse Practitioner Family; Visit Provider Nurse Practitioner Family
DX: M79.662 Pain in left lower leg (principal)
CPT/HCPCS: 36415; 80053; 82550; 85025; 85379

== ENCOUNTER → 2025-03-16 | Outpatient (CLI) | payer BC, SELFPAY ==
[2025-03-16 08:48] LABS: Bacteria 0 SEEN /hpf (None Seen); Mucous, Urine 0 SEEN /hpf (<or=2+); Red Blood Cells-Urine 0 SEEN /hpf (0-5); Squamous Epithelial Cells - UA 0 SEEN /hpf (0-5); White Blood Cells 0 SEEN /hpf (0-5)
--- OUTSIDE RECORDS SUMMARY | 2025-03-16 09:15 | XMS RPT_ITS | CCD ---
Author Organization [facility] Care Team Providers Care Manager Strategic Sourcing Name Role Phone Unavailable Primary Care Provider Unavailabl e Dr. Silver Thompson Primary Care Provider [phone] Dr. Silver Thompson Referring Provider Dr. Silver Thompson Other Provider Dr. Roman Jimenez Attending Provider Dr. Puneet Smalls Attending Provider Dr. El Jaramillo Attending Provider Dr. Burke Lewis Attending Provider MIGUEL PRETTY JR Attending Unavailable MIGUEL PRETTY JR Attending Unavailable SILVER THOMPSON Referring Unavailable Asencio APRICOT PACKER-C, Rhett Primary Care Provider Margaret APRICOT PACKER-CJo Attending Provider Margaret APRICOT PACKER-CJo Referring Provider Dr. Orlando Samson MD Attending Provider Asencio VSC, Rhett Primary Care Unavailable Asencio VSC, Rhett Referring Unavailable Elton Singh Attending Unavailable Asencio VSC, Rhett Primary Care Unavailable Asencio VSC, Rhett Referring Unavailable Asencio VSC, Rhett Attending Unavailable Asencio VSC, Rhett Primary Care Unavailable Assessment, Health Risk Referring Unavaila ble Assessment, Health Risk Attending Unavaila ble Asencio VSC, Rhett Primary Care Unavailable Assessment, Health Risk Attending Unavaila ble Asencio VSC, Rhett Primary Care Unavailable ElifhofJo Referring Unavailable Orlando Samson Attending Unavailable Asencio VSC, Rhett Primary Care Unavailable Burke Lewis Attending Unavailable Asencio VSC, Rhett Primary Care Unavailable Asencio VSC, Rhett Referring Unavailable Fara Connell Attending Unavailable Asencio VSC, Rhett Primary Care Unavailable Asencio VSC, Rhett Referring Unavailable Elton Singh Attending Unavailable Elton Singh Consulting Unavailable El Jaramillo Attending Unavailable Tanner, Silver Referring Unavailable Tanner, Silver Primary Care Unavailable Asencio VSC, Rhett Primary Care Unavailable Asencio VSC, Rhett Referring Unavailable Elton Singh Attending Unavailable Asencio VSC, Rhett Primary Care Unavailable Asencio VSC, Rhett Attending Unavailable Asencio VSC, Rhett Primary Care Unavailable Asencio VSC, Rhett Referring Unavailable Asencio VSC, Rhett Attending Unavailable Asencio VSC, Rhett Primary Care Unavailable Tannhof, Jo Referring Unavailable Tannhof Jo Attending Unavailable Tannhof, Jo Attending Unavailable Asencio VSC, Rhett Primary Care Unavailable Asencio VSC, Rhett Primary Care Unavailable Asencio VSC, Rhett Referring Unavailable Asencio VSC, Rhett Attending Unavailable Allergies Allergy Classification Reported Allergen(s) Allergy Type Date of Onset Reaction(s) Facility (7 sources) Environmental allergies [Other] Propensity to adverse reactions 7 [facility] (1 source) OTHER; Translations: [OTHER] Propensity to adverse reactions (disorder) 7 [facility] Medications Current Medications Medication Drug Class(es) Dates Sig (Normalized) Sig (Original) Badger Lee (Nk) (2 sources) Start: 03-15-2024 Badger Lee (Nk) A ctive March 15, 2024 12:00am Completed/Discontinued Medications Medication Drug Class(es) Dates Sig (Normalized) Sig (Original) acetaminophen 500 mg oral capsule (2 sources) Start: 02-23-2024 End: 03-15-2024 take 1 capsule by mouth every six hours Acetaminophen 500 mg capsule Discontinued 500 mg PO EVERY 6 HOURS 13 02February 23, 2024 12:00am March 15, 2024 7:38am meloxicam 15 mg oral tablet (2 sources) Nonsteroidal Anti-inflammatory Drug Start: 02-23-2024 End: 03-15-2024 take 1 tablet by mouth once daily Meloxicam 15 mg tablet Discontinued 15 mg PO DAILY 15 February 23, 2024 12:00am March 15, 2024 7:38am oxyCODONE hydrochloride 5 mg oral tablet (2 sources) Opioid Agonist Start: 02-23-2024 End: 06-19-2024 take 1 tablet by mouth twice daily as needed for pain Oxycodone 5 mg tablet Discontinued 5 mg PO TWICE A DAY as needed for pain 10 February 23, 2024 March 15, 2024 7:38am sertraline 50 mg oral tablet (5 sources) Serotonin Reuptake Inhibitor take 1 tablet by mouth once daily sertraline (ZOLOFT) 50 mg tablet Take 50 mg by mouth once daily. 0 Active Comment on above: Take 50 mg by mouth once daily. valACYclovir 500 mg oral tablet (7 sources) Herpesvirus Nucleoside Analog DNA Polymerase Inhibitor, Herpes Simplex Virus Nucleoside Analog DNA Polymerase Inhibitor, Herpes Zoster Virus Nucleoside Analog DNA Polymerase Inhibitor Start: 07-14-2012 valACYclovir (VALTREX) 500 mg tablet 1 tab twice daily for 3 days then daily throughout the wrestling season. 30 tablet 0 07/14/2012 Active Comment on above: 1 tab twice daily fo r 3 days then daily throughout the wrestling season. Problems Active Problems Problem Classification Problem Date Documented Date Episodic/Chronic Anxiety disorders (4 sources) Anxiety; Translations: [Anxiety disorder, unspecified] 07-06-2023 Chronic Esophageal disorders (3 sources) Gastroesophageal reflux disease; Translations: [Gastro-esophageal reflux disease without esophagitis] Onset: 07-25-2024 06-01-2024 Chronic Malaise and fatigue (1 source) Asthenia; Translations: [Weakness] 08-06-2023 Episodic Other and unspecified benign neoplasm (4 sources) Hemangioma; Translations: [Hemangioma unspecified site] 07-06-2023 Episodic Other and unspecified benign neoplasm (2 sources) Hemangioma unspecified site; Translations: [Hemangioma of unspecified site] 07-06-2023 Episodic Other connective tissue disease (1 source) Pain in left lower leg; Translations: [Pain in left lower leg] Onset: 03-07-2025 Episodic Other injuries and conditions due to external causes (1 source) Unspecified injury of unspecified lower leg, initial encounter; Translations: [Unspecified injury of unspecified lower leg, initial encounter] Onset: 01-31-2025 Episodic Other nervous system disorders (1 source) Demyelinating disease of central nervous system; Translations: [Demyelinating disease of central nervous system, unspecified] Chronic Other nervous system disorders (1 source) Neuropathy; Translations: [Polyneuropathy, unspecified] 08-06-2023 Chronic Other nervous system disorders (1 source) Ulnar neuropathy of left arm; Translations: [Lesion of ulnar nerve, left upper limb] 08-06-2023 Chronic Other nervous system disorders (4 sources) 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; Translations: [Lesion of ulnar nerve, bilateral upper limbs] 07-06-2023 Chronic Other nervous system disorders (2 sources) Lesion of ulnar nerve, bilateral upper limbs; Translations: [Lesion of ulnar nerve] 07-06-2023 Chronic Other nervous system disorders (1 source) Muscle twitch; Translations: [Fasciculation] Episodic Other nervous system disorders (1 source) Abnormal involuntary movement; Translations: [Unspecified abnormal involuntary movements] Episodic Other nervous system disorders (1 source) Paresthesia; Translations: [Paresthesia of skin] 08-06-2023 Episodic Other upper respiratory disease (7 sources) Allergic rhinitis; Translations: [Allergic rhinitis, unspecified] Onset: 05-10-2007 05-10-2007 Chronic Other upper respiratory infections (7 sources) Chronic sinusitis; Translations: [Chronic sinusitis, unspecified] Onset: 06-09-2007 06-09-2007 Chronic Residual codes; unclassified (1 source) Hypersomnia, unspecified; Translations: [Hypersomnia, unspecified] Onset: 08-10-2024 Chronic Residual codes; unclassified (2 sources) History of decompression of ulnar nerve; Translations: [Other specified postprocedural states] 02-23-2024 Episodic Spondylosis; intervertebral disc disorders; other back problems (1 source) Spinal stenosis of lumbar region; Translations: [Spinal stenosis, lumbar region without neurogenic claudication] 08-06-2023 Episodic Syncope (1 source) Vasovagal syncope; Translations: [Syncope and collapse] Episodic Past or Other Problems Problem Classification Problem Date Documented Da te Episodic/Chronic Cardiac dysrhythmias (1 source) Palpitations; Translations: [Palpitations] Onset: 07-25-2024 Episodic Nutritional deficiencies (1 source) Vitamin deficiency, unspecified; Translations: [Vitamin deficiency, unspecified] Onset: 07-20-2024 Episodic Results Test Name Value Interpretation Reference Range Facility Absolute lymphocyte countOrd ered By: Jo Robles on 02-28-2025 Lymphocytes Auto (Unsp spec) [#/Vol] 1.59 10*3/uL 0.83-4.51 [facility] Absolute neutrophil countOrd ered By: Jo Robles on 02-28-2025 Neutrophils (Bld) [#/Vol] 2.9 10*3/uL 2.0-7.7 [facility] Anion gap in Serum or Plasma Ordered By: Jo Robles on 02-28-2025 Anion gap [Moles/Vol] 13 mmol/L 5-15 [facility] Automated lymphocyte count a s percentage of total leukocytesOrdered By: Jo Robles on 02-28-2025 Lymphocytes/100 WBC Auto (Unsp spec) 31.2 % 19- [facility] BUN/creatinine ratioOrdered By: Jo Robles on 02-28-2025 Urea nitrogen/Creatinine [Mass ratio] 12.4 mg/mg 10- [facility] Basophil percentageOrdered B y: Jo Robles on 02-28-2025 Basophils/100 WBC (Bld) 0.8 % 0-1 [facility] Bilirubin, totalOrdered By: Jo Robles on 02-28-2025 Bilirubin [Mass/Vol] 2.28 mg/dL High 0.00-1.30 [facility] CBC W/Diff, Automatedon Absolute Lymph 1.59 X10 3/uL Normal 0.83-4.51 [facility] Comment on above: Performed By: #### L 100.0100, L300.8000, L501.3620, [id number] #### [facility] [address] [place], [address] Absolute Neut 2.9 X10 3/uL Normal 2.0-7.7 [facility] Comment on above: Performed By: #### L 100.0100, L300.8000, L501.3620, [id number] #### [facility] [address] [place], [address] Basophils/100 WBC (Bld) 0.8 % Normal 0-1 [facility] Comment on above: Performed By: #### L 100.0100, L300.8000, L501.3620, [id number] #### [facility] [address] [place], [address] Eosinophils/100 WBC (Bld) 1.6 % Normal 0-5 [facility] Comment on above: Performed By: #### L 100.0100, L300.8000, L501.3620, [id number] #### [facility] [address] [place], [address] Erythrocyte distribution width (RBC) [Ratio] 12.8 % Normal 11.6-14.6 [facility] Comment on above: Performed By: #### L 100.0100, L300.8000, L501.3620, [id number] #### [facility] [address] [place], [address] Hematocrit (Bld) [Volume fraction] 41.6 % Normal 40-54 [facility] Comment on above: Performed By: #### L 100.0100, L300.8000, L501.3620, [id number] #### [facility] [address] [place], [address] Hemoglobin (Bld) [Mass/Vol] 15.0 g/dL Normal 13.0-16. 5 [facility] Comment on above: Performed By: #### L 100.0100, L300.8000, L501.3620, L500.4050 #### [facility] [address] [place], [address] IG% 0.200 Normal 0.0-0.9 [facility] Comment on above: Result Comment: IG% - Immature Granulocytes (promyelocytes, myelocytes and metamyelocytes) > 1% indicates that a LEFT SHIFT is Present. Performed By: #### L 100.0100, L300.8000, L501.3620, L500.4050 #### [facility] [address] [place], [address] Lymphocytes/100 WBC (Bld) 31.2 % Normal 19-41 [facility] Comment on above: Performed By: #### L 100.0100, L300.8000, L501.3620, [id number] #### [facility] [address] [place], [address] MCH (RBC) [Entitic mass] 30.0 pg Normal 27.0-32.0 [facility] Comment on above: Performed By: #### L 100.0100, L300.8000, L501.3620, L500.4050 #### [facility] [address] [place], [address] MCHC (RBC) [Mass/Vol] 36.1 g/dL High 32-36 [facility] Comment on above: Performed By: #### L 100.0100, L300.8000, L501.3620, L500.4050 #### [facility] [address] [place], [address] MCV (RBC) [Entitic vol] 83.2 fL Normal 80-94 [facility] Comment on above: Performed By: #### L 100.0100, L300.8000, L501.3620, [id number] #### [facility] [address] [place], [address] Monocytes/100 WBC (Bld) 9.0 % Normal 0-10 [facility] Comment on above: Performed By: #### L 100.0100, L300.8000, L501.3620, [id number] #### [facility] [address] [place], [address] Neutrophils/100 WBC (Bld) 57.2 % Normal 47-70 [facility] Comment on above: Performed By: #### L 100.0100, L300.8000, L501.3620, [id number] #### [facility] [address] [place], [address] Nucleated RBC (Bld) [#/Vol] 0 10*3/uL Normal 0-5 [facility] Comment on above: Performed By: #### L 100.0100, L300.8000, L501.3620, [id number] #### [facility] [address] [place], [address] Platelet mean volume (Bld) [Entitic vol] 10.3 fL Normal 6.2-12.0 [facility] Comment on above: Performed By: #### L 100.0100, L300.8000, L501.3620, L500.4050 #### [facility] [address] [place], [address] Platelets (Bld) [#/Vol] 208 10*3/uL Normal 150-450 [facility] Comment on above: Performed By: #### L 100.0100, L300.8000, L501.3620, L500.4050 #### [facility] [address] [place], [address] RBC (Bld) [#/Vol] 5.00 10*6/uL Normal 4.6-6.2 [facility] Comment on above: Performed By: #### L 100.0100, L300.8000, L501.3620, L500.4050 #### [facility] [address] [place], [address] RDW SD 38.5 fl Normal 35.1-43.9 [facility] Comment on above: Performed By: #### L 100.0100, L300.8000, L501.3620, L500.4050 #### [facility] [address] [place], [address] WBC (Bld) [#/Vol] 5.1 10*3/uL Normal 4.4-11.0 [facility] Comment on above: Performed By: #### L 100.0100, L300.8000, L501.3620, [id number] #### [facility] [address] [place], [address] CPK Total, Creatine Kinaseon 02-28-2025 CPK TOTAL 173 U/L Normal 24-195 [facility] Comment on above: Performed By: #### L 100.0100, L300.8000, L501.3620, L500.4050 ####[facility] [address] [place], [address] Carbon dioxide, total [Moles /volume] in Central venous bloodOrdered By: Jo Robles on 02-28-2025 CO2 [Moles/Vol] 24.8 mmol/L 21.0-32.0 [facility] Chloride assayOrdered By: Gunjan Robles on 02-28-2025 Chloride [Moles/Vol] 100 mmol/L 98-108 [facility] Comprehensive Metabolic Prof ilon 02-28-2025 Albumin [Mass/Vol] 5.1 g/dL High 3.5-5.0 [facility] Comment on above: Performed By: #### L 100.0100, L300.8000, L501.3620, L500.4050 ####[facility] [address] [place], [address] Albumin/Globulin [Mass ratio] 2.0 {ratio} Normal 0.9-2.4 [facility] Comment on above: Performed By: #### L 100.0100, L300.8000, L501.3620, L500.4050 ####[facility] [address] [place], [address] ALK PHOS 45 U/L Normal 40-129 [facility] Comment on above: Performed By: #### L 100.0100, L300.8000, L501.3620, L500.4050 ####[facility] [address] [place], [address] ALT [Catalytic activity/Vol] 21 U/L Normal <=46 [facility] Comment on above: Performed By: #### L 100.0100, L300.8000, L501.3620, L500.4050 ####[facility] [address] [place], [address] AST [Catalytic activity/Vol] 23 U/L Normal <=37 [facility] Comment on above: Performed By: #### L 100.0100, L300.8000, L501.3620, L500.4050 ####[facility] [address] [place], [address] Bilirubin [Mass/Vol] 2.28 mg/dL High 0.00-1.30 [facility] Comment on above: Performed By: #### L 100.0100, L300.8000, L501.3620, L500.4050 ####[facility] [address] [place], [address] BUN/CRE 12.4 RATIO Normal 10-20 [facility] Comment on above: Performed By: #### L 100.0100, L300.8000, L501.3620, L500.4050 ####[facility] [address] [place], [address] Calcium [Mass/Vol] 10.0 mg/dL Normal 7.6-11.0 [facility] Comment on above: Performed By: #### L 100.0100, L300.8000, L501.3620, L500.4050 ####[facility] [address] [place], [address] Chloride [Moles/Vol] 100 mmol/L Normal 98-108 [facility] Comment on above: Performed By: #### L 100.0100, L300.8000, L501.3620, L500.4050 ####[facility] [address] [place], [address] CO2 [Moles/Vol] 24.8 mmol/L Normal 21.0-32.0 [facility] Comment on above: Performed By: #### L 100.0100, L300.8000, L501.3620, L500.4050 ####[facility] [address] [place], [address] Creatinine [Mass/Vol] 1.07 mg/dL Normal 0.70-1.20 [facility] Comment on above: Performed By: #### L 100.0100, L300.8000, L501.3620, L500.4050 ####[facility] [address] [place], [address] GAP 13 Normal 5-15 [facility] Comment on above: Performed By: #### L 100.0100, L300.8000, L501.3620, L500.4050 ####[facility] [address] [place], [address] GFR/1.73 sq M.predicted among non-blacks MDRD (S/P/Bld) [Vol rate/Area] 95 mL/min/{1.73_m2} Normal >60 [facility] Comment on above: Result Comment: mL/m in/1.73m2 CKD-EPI Creatinine Equation (2020) Performed By: #### L 100.0100, L300.8000, L501.3620, L500.4050 ####[facility] [address] [place], [address] Globulin (S) [Mass/Vol] 2.5 g/dL Normal 2.2-4.2 [facility] Comment on above: Performed By: #### L 100.0100, L300.8000, L501.3620, L500.4050 ####[facility] [address] [place], [address] Glucose [Mass/Vol] 102 mg/dL High 70-99 [facility] Comment on above: Performed By: #### L 100.0100, L300.8000, L501.3620, L500.4050 ####[facility] [address] [place], [address] Potassium [Moles/Vol] 3.7 mmol/L Normal 3.3-5.1 [facility] Comment on above: Performed By: #### L 100.0100, L300.8000, L501.3620, L500.4050 ####[facility] [address] [place], [address] Sodium [Moles/Vol] 138 mmol/L Normal 133-145 [facility] Comment on above: Performed By: #### L 100.0100, L300.8000, L501.3620, L500.4050 ####[facility] [address] [place], [address] T PROT 7.6 g/dL Normal 5.9-8.4 [facility] Comment on above: Performed By: #### L 100.0100, L300.8000, L501.3620, L500.4050 ####[facility] [address] [place], [address] Urea nitrogen [Mass/Vol] 13 mg/dL Normal 4-19 [facility] Comment on above: Performed By: #### L 100.0100, L300.8000, L501.3620, L500.4050 ####[facility] [address] [place], [address] D-Dimer Quantitative (DVT/PE )on 02-28-2025 D-DIMER QUANT < 0.27 Low 0.27-0.49 [facility] Comment on above: Result Comment: NORM AL D-Dimer level (<0.50) indicates no DVT or PE. Performed By: #### L 100.0100, L300.8000, L501.3620, L500.4050 #### [facility] [place], [address] Eosinophil percentageOrdered By: Jo Robles on 02-28-2025 Eosinophils/100 WBC (Bld) 1.6 % 0-5 [facility] Erythrocyte distribution wid th ratioOrdered By: Jojean-pierre Asencioconnie on 02-28-2025 Erythrocyte distribution width (RBC) [Ratio] 12.8 % 11.6-14.6 [facility] Erythrocyte distribution wid th standard deviationOrdered By: Jojean-pierre Asencioconnie on 02-28-2025 Erythrocyte distribution width (RBC) [Ratio] 38.5 fl 35.1-43.9 [facility] Glomerular filtration rate ( GFR) estimation/1.73 sq m using serum, plasma, or whole bOrdered By: Jojean-pierre Robles on 02-28-2025 GFR/1.73 sq M.predicted among non-blacks MDRD (S/P/Bld) [Vol rate/Area] 95 mL/min/{1.73_m2} >60 [facility] Comment on above: mL/min/1.73m2 CKD-EP I Creatinine Equation (2020) Hematocrit Auto (Bld) [Volum e fraction]Ordered By: Jojean-pierre Asencioconnie on 02-28-2025 Hematocrit (Bld) [Volume fraction] 41.6 % 40-54 [facility] Hemoglobin measurementOrdere d By: Jo Robles on 02-28-2025 Hemoglobin (Bld) [Mass/Vol] 15.0 g/dL 13.0-16. 5 [facility] Immature granulocytes/100 WB C Auto (Bld)Ordered By: Jo Robles on 02-28-2025 Immature granulocytes/100 WBC (Bld) 0.200 % 0.0-0.9 [facility] Comment on above: IG% - Immature Granu locytes (promyelocytes, myelocytes and metamyelocytes) > 1% indicates that a LEFT SHIFT is Present. Laboratory - Chemistry and C hemistry - challengeOrdered By: Jojean-pierre Robles on 02-28-2025 AST [Catalytic activity/Vol] 23 U/L <38 [facility] MCV (mean corpuscular volume ) determinationOrdered By: Jo Robles on 02-28-2025 MCV (RBC) [Entitic vol] 83.2 fL 80-94 [facility] Mean corpuscular hemoglobin (MCH) determinationOrdered By: Jo Robles on 02-28-2025 MCH (RBC) [Entitic mass] 30.0 pg 27.0-32.0 [facility] Mean corpuscular hemoglobin concentration (MCHC) determinationOrdered By: Jo Robles on 02-28-2025 MCHC (RBC) [Mass/Vol] 36.1 g/dL High 32-36 [facility] Mean platelet volume determi nationOrdered By: Jo Robles on 02-28-2025 Platelet mean volume (Bld) [Entitic vol] 10.3 fL 6.2-12.0 [facility] Monocyte percentageOrdered B y: Jo Robles on 02-28-2025 Monocytes/100 WBC (Bld) 9.0 % 0-10 [facility] Neutrophil percentageOrdered By: Jo Robles on 02-28-2025 Neutrophils/100 WBC (Bld) 57.2 % 47-70 [facility] Nucleated red blood cell per centageOrdered By: Jo Robles on 02-28-2025 Nucleated RBC/100 WBC (Bld) [Ratio] 0 % 0-5 [facility] Platelet countOrdered By: Gunjan Robles on 02-28-2025 Platelets (Bld) [#/Vol] 208 10*3/uL 150-450 [facility] Potassium measurement (mass/ volume)Ordered By: Jo Robles on 02-28-2025 Potassium (Unsp spec) [Mass/Vol] 3.7 mmol/L 3.3-5.1 [facility] RBC Auto (Bld) [#/Vol]Ordere d By: Jo Robles on 02-28-2025 RBC (Bld) [#/Vol] 5.00 10*6/uL 4.6-6.2 [facility] Serum creatinine measurement (mass/volume)Ordered By: Jo Robles on 02-28-2025 Creatinine [Mass/Vol] 1.07 mg/dL 0.70-1.20 [facility] Serum globulin measurementOr dered By: Jo Robles on 02-28-2025 Globulin (S) [Mass/Vol] 2.5 g/dL 2.2-4.2 [facility] Serum glucose measurement (m ass/volume)Ordered By: Jo Robles on 02-28-2025 Glucose [Mass/Vol] 102 mg/dL High 70-99 [facility] Serum or plasma alanine godinez otransferase (ALT) measurementOrdered By: Jo Robles on 02-28-2025 ALT [Catalytic activity/Vol] 21 U/L <47 [facility] Serum or plasma albumin lester urement (mass/volume)Ordered By: Jo Robles on 02-28-2025 Albumin [Mass/Vol] 5.1 g/dL High 3.5-5.0 [facility] Serum or plasma albumin/glob ulin mass ratioOrdered By: Jo Robles on 02-28-2025 Albumin/Globulin [Mass ratio] 2.0 {ratio} 0.9-2.4 [facility] Serum or plasma alkaline aracelis sphatase measurementOrdered By: Jo Robles on 02-28-2025 ALP [Catalytic activity/Vol] 45 U/L 40-129 [facility] [facility] Serum or plasma calcium lester urement (mass/volume)Ordered By: Jo Robles on 02-28-2025 Calcium [Mass/Vol] 10.0 mg/dL 7.6-11.0 [facility] Serum or plasma creatine kin ase activityOrdered By: Jo Robles on 02-28-2025 CK [Catalytic activity/Vol] 173 U/L 24-195 [facility] Serum or plasma urea nitroge n measurement (mass/volume)Ordered By: Jo Robles on 02-28-2025 Urea nitrogen [Mass/Vol] 13 mg/dL 4-19 [facility] Sodium levelOrdered By: Parish Robles on 02-28-2025 Sodium [Moles/Vol] 138 mmol/L 133-145 [facility] Total proteinOrdered By: Santiago Robles on 02-28-2025 Protein [Mass/Vol] 7.6 g/dL 5.9-8.4 [facility] White blood cell (WBC) count Ordered By: Jo Robles on 02-28-2025 WBC (Bld) [#/Vol] 5.1 10*3/uL 4.4-11.0 [facility] Venous duplex ultrasound rep ortOrdered By: Orlando Samson on 01-29-2025 US Vein [facility] Cardiovascular Services [address] [place] [address] Venous Duplex US, Unilateral 01/26/25 1110 MR#: [id number] Acct: [id number] Name: FABIO SIMPSON Rep #:[id number] : 1995 29 From: Orlando Bruce Attending Dr: ISAURO Bush Status: REG CLI Ordering Dr: Jo Robles Date: 01/26/25 Location: CVS Sex: M C Admitted: Reason For Study Reason For Study: LLE Pain RIGHT LEFT CFV is compressible, spontaneous, phasic, competent GSV is normal. and demonstrates normal augmentation. CFV is compressible, spontaneous, phasic, competent, Procedure and demonstrates normal augmentation. This is a venous duplex using B-mode, color flow and FV is compressible, spontaneous, phasic, competent spectral Doppler. and demonstrates normal augmentation. Exam performed in department. POP V is compressible, spontaneous, phasic, competent The exam was diagnostic. and demonstrates normal augmentation. A preliminary report was called and/or faxed to T/P Trunk is compressible. Jo BOX. PTV is compressible. LT PerV is compressible. VL/Venous Duplex US, Unilateral Interpretation Summary Deep veins of the left lower extremity are patent and compressible segmentally. There is no evidence of left lower extremity deep vein thrombosis. The left great saphenous vein appears patent andcompressible segmentally. __ Ordering Physician: Jo Robles Referring Physician: Jo Robles Performed By: Perez Connelly, RVT 01/29/25 0750 Date _ Orlando Samson MD CC: APRICOT PACKER-C Jo Robles; APRICOT PACKER-C Rhett Luis M ~ Date Dictated: 01/26/25 1110 Date Transcribed: 01/29/25 075 Flight Tower Dispatcher: Signed [facility] Work Phone: Venous Duplex US, Unilateral on 01-26-2025 Venous Duplex US, Unilateral [facility] Cardiovascular Services [address] [place] [address] Venous Duplex US, Unilateral 01/26/25 1110 MR#: [id number] Acct: [id number] Name: FABIO SIMPSON Rep #: [id number] : 1995 29 From: Orlando Samson MD Attending Dr: ISAURO Bush Status: REG CLI Ordering Dr: Jo Robles Date: 01/26/25 Location: CVS Sex: M C Admitted: Reason For Study Reason For Study: LLE Pain RIGHT LEFT CFV is compressible, spontaneous, phasic, competent GSV is normal. and demonstrates normal augmentation. CFV is compressible, spontaneous, phasic, competent, Procedure and demonstrates normal augmentation. This is a venous duplex using B-mode, color flow and FV is compressible, spontaneous, phasic, competent spectral Doppler. and demonstrates normal augmentation. Exam performed in department. POP V is compressible, spontaneous, phasic, competent The exam was diagnostic. and demonstrates normal augmentation. A preliminary report was called and/or faxed to T/P Trunk is compressible. Jo BOX. PTV is compressible. LT PerV is compressible. VL/Venous Duplex US, Unilateral Interpretation Summary Deep veins of the left lower extremity are patent and compressible segmentally. There is no evidence of left lower extremity deep vein thrombosis. The left great saphenous vein appears patent and compressible segmentally. __ Ordering Physician: Jo Robles Referring Physician: Jo Robles Performed By: Perez Connelly, RVT 01/29/25 0750 Date Orlando Samson MD CC: APRICOT PACKER-C Jo Robles; ISAURO Asencio Date Dictated: 01/26/25 1110 Date Transcribed: 01/29/25 075 Flight Tower Dispatcher: Signed Normal [facility] Echo Completeon 07-05-2024 Echo Complete [facility] Cardiovascular Services [address] [place] [address] Echo Complete 07/05/24 1247 MR#: [id number] Acct: [id number] Name: FABIO SIMPSON Rep #: [id number] : 1995 29 From: Burke Lewis MD Attending Dr: ISAURO Olson Status: REG CLI Ordering Dr: Rhett Asencio [facility] APRICOT PACKER-C Date: 07/05/24 Location: [facility] Sex: M C Admitted: Reason For Study: PALPITATIONS Procedure This was a 2D Doppler, Color Flow transthoracic echocardiogram. Exam performed in department. Left Ventricle Normal LV size. Mid cavitary false tendon noted. Left ventricular systolic function is normal. The left ventricular ejection fraction is 60 %. No regional wall motion abnormalities noted. Right Ventricle Normal RV size. Normal systolic function. Atria Normal left atrium. Normal right atrium. Mitral Valve Equivocal mitral valve prolapse. Tricuspid Valve Normal tricuspid valve. Aortic Valve Trisinus/trileaflet aortic valve. Pulmonic Valve Normal pulmonic valve. Great Vessels Normal aortic root. The pulmonary artery is normal size. Normal inferior vena cava. Pericardium/Pleural No pericardial effusion. MMode/2D Measurements Calculations LVIDd: 5.4 cm IVSd: 0.77 cm LVOT diam: 2.1 cm LVIDs: 3.4 cm LVPWd: 0.75 cm LVOT area: 3.5 cm2 RVDd: 3.2 cm FS: 37.6 % asc Aorta Diam: 2.7 cm LAV(MOD-bp): 52.9 ml LVAd ap4: 33.6 cm2 LAV(MOD-bp) Indexed: 25.3 ml/m2 LVLd ap4: 8.8 cm LAV(MOD-sp2): 51.5 ml EDV(MOD-sp4): 106.4 ml LAV(MOD-sp4): 49.8 ml EDV(sp4-el): 108.7 ml LVAs ap4: 19.5 cm2 LVLs ap4: 7.5 cm ESV(MOD-sp4): 42.8 ml ESV(sp4-el): 42.9 ml EF(MOD-sp4): 59.8 % EF(sp4-el): 60.5 % LVAd ap2: 28.4 cm2 SV(MOD-sp4): 63.6 ml SV(MOD-sp2): 46.9 ml LVLd ap2: 8.8 cm EDV(MOD-sp2): 76.0 ml EDV(sp2-el): 77.5 ml LVAs ap2: 15.8 cm2 LVLs ap2: 7.3 cm ESV(MOD-sp2): 29.1 ml ESV(sp2-el): 29.0 ml EF(MOD-sp2): 61.7 % SV(sp4-el): 65.8 ml LA A4 area: 17.7 cm2 RA A4 area: 18.0 cm2 TAPSE: 2.2 cm Time Measurements MV dec time: 0.15 sec Doppler Measurements Calculations MV E max swati: 73.4 cm/sec Lat Peak E' Swati: 17.3 cm/sec Med Peak E' Swati: 15.5 cm/sec MV A max swati: 65.2 cm/sec E/E' lat: 4.2 E/E' med: 4.7 MV E/A: 1.1 MV V2 max: 111.6 cm/sec MV P1/2t max swati: 101.3 cm/sec Ao V2 max: 113.3 cm/sec MV max P.0 mmHg MV P1/2t: 45.6 msec Ao max P.1 mmHg MV V2 mean: 52.3 cm/sec MV dec slope: 650.3 cm/sec2 Ao V2 mean: 86.3 cm/sec MV mean P.4 mmHg Ao mean P.3 mmHg MV V2 VTI: 19.8 cm MVA(P1/2t): 4.8 cm2 Ao V2 VTI: 25.0 cm MVA(VTI): 3.4 cm2 AV (velocity ratio): 0.76 GUDELIA(I,D): 2.7 cm2 GUDELIA(V,D): 2.8 cm2 LV V1 max: 88.8 cm/sec SV(LVOT): 67.1 ml PA V2 max: 112.6 cm/sec LV V1 max P.2 mmHg PA max PG (full): 3.5 mmHg LV V1 mean P.8 mmHg PA V2 mean: 74.4 cm/sec LV V1 mean: 63.2 cm/sec PA V2 VTI: 21.0 cm LV V1 VTI: 19.1 cm ECHO/Echo Complete Interpretation Summary Normal LV size. Left ventricular systolic function is normal. The left ventricular ejection fraction is 60 %. Mid cavitary false tendon noted. Equivocal mitral valve prolapse. __ Ordering Physician: Rhett Asencio Referring Physician: Rhett Asencio Performed By: Kristel Prasad RVT, RDCS and Student 07/05/24 1500 Date Burke Lewis MD CC: APRICOT PACKER-C Rhett Asencio Date Dictated: 07/05/24 1247 Date Transcribed: 07/05/24 1500 Flight Tower Dispatcher: Signed Normal [facility] EGD Reporton 07-04-2024 EGD Report [facility] Medical Records Department [address] [place] [address] EGD Report MR#: [id number] Acct: [id number] Name: FABIO SIMPSON Rep #: [id number] : 1995 29 From: Elton Singh MD PCP: ISAURO Olson Status:[place] [facility] [place] Name: Fabio Simpson Procedure Date: 07/04/2024 9:42 AM Date of : 1995 Age: 29 Procedure: Upper GI endoscopy Indications: Heartburn, Gastro-esophageal reflux disease Providers: Elton Singh MD Referring MD: Elton Singh MD Medicines: Propofol per Anesthesia Patient Profile: This is a 29 year old male. Refer to note in patient chart for documentation of history and physical. Complications: No immediate complications. Procedure: Pre-Anesthesia Assessment: - Prior to the procedure, a History and Physical was performed, and patient medications and allergies were reviewed. The patient's tolerance of previous anesthesia was also reviewed. The risks and benefits of the procedure and the sedation options and risks were discussed with the patient. All questions were answered, and informed consent was obtained. Prior Anticoagulants: The patient has taken no anticoagulant or antiplatelet agents. After reviewing the risks and benefits, the patient was deemed in satisfactory condition to undergo the procedure. After obtaining informed consent, the endoscope was passed under direct vision. Throughout the procedure, the patient's blood pressure, pulse, and oxygen saturations were monitored continuously. The was introduced through the mouth, and advanced to the third part of duodenum. The upper GI endoscopy was accomplished without difficulty. The patient tolerated the procedure well. Scope In: 9:44:36 AM Scope Out: 9:46:14 AM Total Procedure Duration Time 0 hours 1 minute 38 seconds Findings: The esophagus was normal. The stomach was normal. The examined duodenum was normal. Impression: - Normal esophagus. - Normal stomach. - Normal examined duodenum. - No specimens collected. Recommendation: - Discharge patient to home. - Resume previous diet. - Continue present medications. Procedure Code(s): --- Professional --- 02191, Esophagogastroduode noscopy, flexible, transoral; diagnostic, including collection of specimen(s) by brushing or washing, when performed (separate procedure) Diagnosis Code(s): --- Professional --- R12, Heartburn K21.9, Gastro-esophageal reflux disease without esophagitis CPT copyright 2021 [employer]. All rights reserved. The codes documented in this report are preliminary and upon machinist tool and die review may be revised to meet current compliance requirements. Elton Singh MD 07/04/2024 9:48:10 AM This report has been signed electronically. Number of Addenda: 0 Note Initiated On: 07/04/2024 9:42 AM 07/04/24947 Date Elton Singh MD Cosigner Signature: Date (if indicated) CC: ISAURO Asencio; Dr. Elton Singh MD Date Dictated: 07/04/24941 Date Transcribed: Flight Tower Dispatcher: Signed [facility] MR/POSTOP.[facility] 07-04-2024 MR/POSTOP.[facility] Medical Records Department [address] [place] [address] Anesthesia Postop Eval I 07/04/2451 MR#: [id number] Acct: [id number] Name: FABIO SIMPSON Rep #: [id number] : 1995 29 From: Nadege Bartlett CRNA PCP: ISAURO Olson Status:REG SDC Y Race: C Location: [place] [address] Anesthesia: Postop Eval I Current Vital Signs Temperature: 97.8 F Pulse Rate: 78 Blood Pressure: 116/77 Respiratory Rate: 16 Pulse Ox: 98 Oxygen Delivery Method: Room Air Assessment Airway patent: Yes Spontaneous unlabored respirations: Yes Mental status: Awake and Calm nausea: No Vomiting: No Anesthesia Complication: No Fluid Hydration Crystalloid volume administer (ml): 10 Total IV fluid infused: 10 Progress Note Anesthesia document: Postop Eval 1 completed: Yes 07/04/24951 Date Nadege Bartlett CAUSE ANALYST Cosigner Signature: Date CC: Signed Normal [facility] MR/TREICLNS8mc 07-04-2024 MR/POSTOPAN2 [facility] Medical Records Department [address] [place] [address] Anesthesia Postop Eval II 07/04/24 1005 MR#: [id number] Acct: [id number] Name: FABIO SIMPSON Rep #: [id number] : 1995 29 From: Orlando Rees MD PCP: ISAURO Olson Status:REG SDC Y Race: C Location: [place] [address] Anesthesia Postop Eval I Sum Postop Eval Completion status Anesthesia document: Postop Eval 1 completed: Yes Anesthesia Postop Eval I Summary Anesthesia Postop Eval I Summary: Anesthesia Postop Eval I: Assessment Summary Airway patent Yes 07/04/24 09:52 CAUSE ANALYST.VERN Spontaneous unlabored Yes 07/04/24 09:52 CAUSE ANALYSTLE respirations Mental status Awake,Calm 07/04/24 09:52 CAUSE ANALYST.VERN nausea No 07/04/24 09:52 CAUSE ANALYST.VERN Vomiting No 07/04/24 09:52 CAUSE ANALYST.VERN Anesthesia Postop Eval I: Fluid Summary Crystalloid volume administer 10 07/04/24 09:52 CAUSE ANALYST.VERN (ml) Colloids volume administered ( ml) Blood Product volume administered (ml) Total IV fluid infused 10 07/04/24 09:52 CAUSE ANALYST.SKOBY Anesthesia Postop Eval I: Summary Notes Anesthesia Complication No 07/04/24 09:52 CAUSE ANALYST.SKOBY Anesthesia Complication Comment: Post-operative progress note Anesthesia: Postop Eval II Evaluation Mental status: Awake Pain Level: 0 nausea: No Vomiting: No 07/04/24 1006 Date Orlando Faustin Signature: Date CC: Signed Normal [facility] CBC, Employeeon 06-29-2024 Absolute Lymph 2.15 X10 3/uL Normal 0.83-4.51 [facility] Comment on above: Performed By: #### L 400.0100, L500.2900, L100.0200 ####[facility] [address] [place], [address] Absolute Neut 2.7 X10 3/uL Normal 2.0-7.7 [facility] Comment on above: Performed By: #### L 400.0100, L500.2900, L100.0200 ####[facility] [address] [place], [address] Basophils/100 WBC (Bld) 0.7 % Normal 0-1 [facility] Comment on above: Performed By: #### L 400.0100, L500.2900, L100.0200 ####[facility] [address] [place], [address] Eosinophils/100 WBC (Bld) 2.9 % Normal 0-5 [facility] Comment on above: Performed By: #### L 400.0100, L500.2900, L100.0200 ####[facility] [address] [place], [address] Erythrocyte distribution width (RBC) [Ratio] 12.5 % Normal 11.6-14.6 [facility] Comment on above: Performed By: #### L 400.0100, L500.2900, L100.0200 ####[facility] [address] [place], [address] Hematocrit (Bld) [Volume fraction] 44.3 % Normal 40-54 [facility] Comment on above: Performed By: #### L 400.0100, L500.2900, L100.0200 ####[facility] [address] [place], [address] Hemoglobin (Bld) [Mass/Vol] 15.5 g/dL Normal 13.0-16. 5 [facility] Comment on above: Performed By: #### L 400.0100, L500.2900, L100.0200 ####[facility] [address] [place], [address] Lymphocytes/100 WBC (Bld) 39.0 % Normal 19-41 [facility] Comment on above: Performed By: #### L 400.0100, L500.2900, L100.0200 ####[facility] [address] [place], [address] MCH (RBC) [Entitic mass] 29.2 pg Normal 27.0-32.0 [facility] Comment on above: Performed By: #### L 400.0100, L500.2900, L100.0200 ####[facility] [address] [place], [address] MCHC (RBC) [Mass/Vol] 35.0 g/dL Normal 32-36 [facility] Comment on above: Performed By: #### L 400.0100, L500.2900, L100.0200 ####[facility] [address] [place], [address] MCV (RBC) [Entitic vol] 83.6 fL Normal 80-94 [facility] Comment on above: Performed By: #### L 400.0100, L500.2900, L100.0200 ####[facility] [address] [place], [address] Monocytes/100 WBC (Bld) 8.2 % Normal 0-10 [facility] Comment on above: Performed By: #### L 400.0100, L500.2900, L100.0200 ####[facility] [address] [place], [address] Neutrophils/100 WBC (Bld) 49.0 % Normal 47-70 [facility] Comment on above: Performed By: #### L 400.0100, L500.2900, L100.0200 ####[facility] [address] [place], [address] NRBC # 0.00 10 3/uL Normal 0-5 [facility] Comment on above: Performed By: #### L 400.0100, L500.2900, L100.0200 ####[facility] [address] [place], [address] Nucleated RBC (Bld) [#/Vol] 0 10*3/uL Normal 0-5 [facility] Comment on above: Performed By: #### L 400.0100, L500.2900, L100.0200 ####[facility] [address] [place], [address] Platelet mean volume (Bld) [Entitic vol] 10.3 fL Normal 6.2-12.0 [facility] Comment on above: Performed By: #### L 400.0100, L500.2900, L100.0200 ####[facility] [address] [place], [address] Platelets (Bld) [#/Vol] 211 10*3/uL Normal 150-450 [facility] Comment on above: Performed By: #### L 400.0100, L500.2900, L100.0200 ####[facility] [address] [place], [address] RBC (Bld) [#/Vol] 5.30 10*6/uL Normal 4.6-6.2 [facility] Comment on above: Performed By: #### L 400.0100, L500.2900, L100.0200 ####[facility] [address] [place], [address] RDW SD 37.6 fl Normal 35.1-43.9 [facility] Comment on above: Performed By: #### L 400.0100, L500.2900, L100.0200 ####[facility] [address] [place], [address] WBC (Bld) [#/Vol] 5.5 10*3/uL Normal 4.4-11.0 [facility] Comment on above: Performed By: #### L 400.0100, L500.2900, L100.0200 ####[facility] [address] [place], [address] Employee Profileon 4 Albumin [Mass/Vol] 4.5 g/dL Normal 3.2-5.0 [facility] Comment on above: Performed By: #### L 400.0100, L500.2900, L100.0200 ####[facility] [address] [place], [address] Albumin/Globulin [Mass ratio] 1.5 {ratio} Normal 0.9-2.4 [facility] Comment on above: Performed By: #### L 400.0100, L500.2900, L100.0200 ####[facility] [address] [place], [address] ALK P 36 U/L Low 45-117 [facility] Comment on above: Performed By: #### L 400.0100, L500.2900, L100.0200 ####[facility] [address] [place], [address] ALT [Catalytic activity/Vol] 31 U/L Normal 16-61 [facility] Comment on above: Performed By: #### L 400.0100, L500.2900, L100.0200 ####[facility] [address] [place], [address] AST [Catalytic activity/Vol] 18 U/L Normal 15-37 [facility] Comment on above: Performed By: #### L 400.0100, L500.2900, L100.0200 ####[facility] [address] [place], [address] Bilirubin [Mass/Vol] 1.50 mg/dL High 0.20-1.00 [facility] Comment on above: Result Comment: For patients on eltrombopag therapy, use of Dimension [place] TBIL is not recommended. Performed By: #### L 400.0100, L500.2900, L100.0200 ####[facility] [address] [place], [address] Bilirubin.direct [Mass/Vol] 0.35 mg/dL High 0.00-0.3 0 [facility] Comment on above: Performed By: #### L 400.0100, L500.2900, L100.0200 ####[facility] [address] [place], [address] BUN/CRE 10.7 RATIO Normal 10-20 [facility] Comment on above: Performed By: #### L 400.0100, L500.2900, L100.0200 ####[facility] [address] [place], [address] CA,Total 9.6 mg/dL Normal 8.5-10.1 [facility] Comment on above: Performed By: #### L 400.0100, L500.2900, L100.0200 ####[facility] [address] [place], [address] Chloride [Moles/Vol] 104 mmol/L Normal 98-107 [facility] Comment on above: Performed By: #### L 400.0100, L500.2900, L100.0200 ####[facility] [address] [place], [address] CHOL:HDL 1.70 Normal [facility] Comment on above: Performed By: #### L 400.0100, L500.2900, L100.0200 ####[facility] [address] [place], [address] Cholesterol [Mass/Vol] 135 mg/dL Normal 200 [facility] Comment on above: Result Comment: <200 mg/dL Desirable 200-240 mg/dL Borderline >240 mg/dL High Risk Performed By: #### L 400.0100, L500.2900, L100.0200 ####[facility] [address] [place], [address] Cholesterol in HDL [Mass/Vol] 81 mg/dL Normal [facility] Comment on above: Result Comment: The drugs N-Acetylcysteine and Metamizole may falsely depress this assay. Reference Range HDL <40 mg/dL Low HDL Cholesterol HDL >or= 60 mg/dL High HDL Cholesterol Performed By: #### L 400.0100, L500.2900, L100.0200 ####[facility] [address] [place], [address] Cholesterol in LDL [Mass/Vol] 49 mg/dL Normal 0-130 [facility] Comment on above: Performed By: #### L 400.0100, L500.2900, L100.0200 ####[facility] [address] [place], [address] Cholesterol in VLDL [Mass/Vol] 5 mg/dL Normal 5-40 [facility] Comment on above: Performed By: #### L 400.0100, L500.2900, L100.0200 ####[facility] [address] [place], [address] CO2 [Moles/Vol] 27.0 mmol/L Normal 21.0-32.0 [facility] Comment on above: Performed By: #### L 400.0100, L500.2900, L100.0200 ####[facility] [address] [place], [address] Creatinine [Mass/Vol] 1.22 mg/dL Normal 0.70-1.30 [facility] Comment on above: Result Comment: The validity of the calculated GFR GFRAA in patients over 70 years has not been determined. Clinical correlation is essential. Performed By: #### L 400.0100, L500.2900, L100.0200 ####[facility] [address] [place], [address] EST GFR - AA 89 mL/min Normal >60 [facility] Comment on above: Result Comment: Afri can Irish GFR Calc Performed By: #### L 400.0100, L500.2900, L100.0200 ####[facility] [address] [place], [address] GAP 5 Normal 5-15 [facility] Comment on above: Performed By: #### L 400.0100, L500.2900, L100.0200 ####[facility] [address] [place], [address] GFR/1.73 sq M.predicted among non-blacks MDRD (S/P/Bld) [Vol rate/Area] 74 mL/min/{1.73_m2} Normal >60 [facility] Comment on above: Result Comment: Non- GFR Calc Performed By: #### L 400.0100, L500.2900, L100.0200 ####[facility] [address] [place], [address] Globulin (S) [Mass/Vol] 3.1 g/dL Normal 2.2-4.2 [facility] Comment on above: Performed By: #### L 400.0100, L500.2900, L100.0200 ####[facility] [address] [place], [address] Glucose [Mass/Vol] 111 mg/dL High 74-106 [facility] Comment on above: Result Comment: Fast ing Glucose result from 100 to 125 mg/dL suggests IMPAIRED HOMEOSTASIS per A.D.A. criteria. Performed By: #### L 400.0100, L500.2900, L100.0200 ####[facility] [address] [place], [address] LDH 214 U/L Normal 87-241 [facility] Comment on above: Performed By: #### L 400.0100, L500.2900, L100.0200 ####[facility] [address] [place], [address] Phosphate [Mass/Vol] 2.9 mg/dL Normal 2.5-4.9 [facility] Comment on above: Performed By: #### L 400.0100, L500.2900, L100.0200 ####[facility] [address] [place], [address] Potassium [Moles/Vol] 4.0 mmol/L Normal 3.5-5.1 [facility] Comment on above: Performed By: #### L 400.0100, L500.2900, L100.0200 ####[facility] [address] [place], [address] Sodium [Moles/Vol] 136 mmol/L Normal 136-145 [facility] Comment on above: Performed By: #### L 400.0100, L500.2900, L100.0200 ####[facility] [address] [place], [address] T PROT 7.6 g/dL Normal 6.4-8.2 [facility] Comment on above: Performed By: #### L 400.0100, L500.2900, L100.0200 ####[facility] [address] [place], [address] Triglyceride [Mass/Vol] 27 mg/dL Normal [facility] Comment on above: Result Comment: The drugs N-Acetylcysteine and Metamizole may falsely depress this assay. Serum Triglycerides Reference Interval Normal <150 mg/dL Borderline high 150 - 199 mg/dL High 200 - 499 mg/dL Very High > or = 500 mg/dL Performed By: #### L 400.0100, L500.2900, L100.0200 ####[facility] [address] [place], [address] Urea nitrogen [Mass/Vol] 13 mg/dL Normal 7-18 [facility] Comment on above: Performed By: #### L 400.0100, L500.2900, L100.0200 ####[facility] [address] [place], [address] URIC 4.7 mg/dL Normal 3.5-7.2 [facility] Comment on above: Result Comment: The drugs N-Acetylcysteine and Metamizole may falsely depress this assay. Performed By: #### L 400.0100, L500.2900, L100.0200 ####[facility] [address] [place], [address] Thyroid Stim Hormone (TSH)on 06-29-2024 TSH 1.900 uIU/mL Normal 0.358-3.740 [facility] Comment on above: Performed By: #### L 503.0105, L501.9520, L506.1000 ####[facility] [address] [place], [address] Urinalysis, Employeeon 06-29 BILIRUBIN URINE Negative Normal Negative [facility] Comment on above: Order Comment: Urine , Random Performed By: #### L 400.0100, L500.2900, L100.0200 ####[facility] [address] [place], [address] Clarity (U) Clear Normal Clear [facility] Comment on above: Order Comment: Urine , Random Performed By: #### L 400.0100, L500.2900, L100.0200 ####[facility] [address] [place], [address] Color (U) Straw Normal Yellow [facility] Comment on above: Order Comment: Urine , Random Performed By: #### L 400.0100, L500.2900, L100.0200 ####[facility] [address] [place], [address] GLUCOSE, UR Normal Normal Normal [facility] Comment on above: Order Comment: Urine , Random Performed By: #### L 400.0100, L500.2900, L100.0200 ####[facility] [address] [place], [address] KETONE UR Negative Normal Negative [facility] Comment on above: Order Comment: Urine , Random Performed By: #### L 400.0100, L500.2900, L100.0200 ####[facility] [address] [place], [address] LEUK ESTERASE Negative Normal Negative [facility] Comment on above: Order Comment: Urine , Random Performed By: #### L 400.0100, L500.2900, L100.0200 ####[facility] [address] [place], [address] Nitrite Ql (U) Negative Normal Negative [facility] Comment on above: Order Comment: Urine , Random Performed By: #### L 400.0100, L500.2900, L100.0200 ####[facility] [address] [place], [address] OCCULT BLOOD-UR Negative Normal Negative [facility] Comment on above: Order Comment: Urine , Random Performed By: #### L 400.0100, L500.2900, L100.0200 ####[facility] [address] [place], [address] pH UR 7.0 Normal 5.0 - 8.0 [facility] Comment on above: Order Comment: Urine , Random Performed By: #### L 400.0100, L500.2900, L100.0200 ####[facility] [address] [place], [address] PROT DIPSTX Negative Normal Negative [facility] Comment on above: Order Comment: Urine , Random Performed By: #### L 400.0100, L500.2900, L100.0200 ####[facility] [address] [place], [address] SP.GR. DIPSTX 1.015 Normal 1.002-1.030 [facility] Comment on above: Order Comment: Urine , Random Performed By: #### L 400.0100, L500.2900, L100.0200 ####[facility] [address] [place], [address] UROBILI Normal Normal Normal [facility] Comment on above: Order Comment: Urine , Random Performed By: #### L 400.0100, L500.2900, L100.0200 ####[facility] [address] [place], [address] Vitamin B12on 10-03-2024 Cobalamin (Vitamin B12) [Mass/Vol] 473 pg/mL Normal 211-911 [facility] Comment on above: Performed By: #### L 503.0105, L501.1320, L506.1000 ####[facility] [address] [place], [address] Vitamin D,25 Hydroxyon 06-29 Vitamin D 25-OH 50.4 ng/mL Normal [facility] Comment on above: Result Comment: Celeste min D 25(OH) Status Range Deficiency <20 ng/mL (50nmol/L) Insufficiency 20 - 30 ng/mL (50 - 75 nmol/L) Sufficiency 30 - 100 ng/mL (75 - 250 nmol/L) Toxicity >100 ng/mL (>250 nmol/L) Performed By: #### L 503.0105, L5019520, L506.1000 ####[facility] [address] [place], [address] Surgery Visit Reporton 06-01 Surgery Visit Report [facility] [address] [place], [place] [address] OFFICE VISIT Date of Service: 06/01/24 MR#: [id number] Acct: [id number] Name: FABIO SIMPSON Rep #: [id number] : 1995 Provider: Dr. Elton santiago MD Age/Sex: 28/M Location: [facility] Status: Signed Intake Vital Signs 02/23/24 06:27 06/01/24 13:03 Height 5 ft 10 in 5 ft 10 in Weight: 195 lb BMI 27.9 BP 126/82 H Blood Pressure Location Rt brachial Position Sitting Respiration 17 Pulse 90 Pulse Source Monitor Pulse Oximetry (%) 99 Oxygen Delivery Method room air Intake Visit Reasons: GERD Chief Complaint: gerd Allergies No Known Allergies Allergy (Unverified 06/01/24 13:05) Medications ???Medication ???Instructions ???Recorded ???Confirmed ???Type NK 03/15/24 06/01/24 History Have you fallen in the past year?: No PFSH Medical History Alcohol use Non-smoker Surgical History Hx of tonsillectomy Family History Father Myocardial infarction Grandfather Cancer Social History Smoking Status: Never smoker alcohol intake: current alcohol intake frequency: holidays/special occasions only HPI HPI HPI: Patient is a 28-year-old male here for chronic GERD. He reports that is very mild but it lasts about 1/2-hour to an hour after eating if he eats something spicy. And a normal basis he does not have any acid reflux. He says this has been going on for many years. He was sent here for evaluation with EGD. He is not on any medications currently. ROS General General: No weight change, appetite, fatigue, colon cancer, breast cancer or weakness HEENT HEENT: No difficulty swallowing, eye injury, eye surgery, swollen glands or hoarseness Endo Endocrine: No thyroid disease, diabetes mellitus, thyroid cancer, Hair loss, heat intolerance or cold intolerance Skin Skin: No rash or changing moles Musc Musculoskeletal: No back problems, arthritis, rheumatoid arthritis, gout or joint pain Cardio Cardiovascular: No murmur, pacemaker, heart disease, atrial fibrillation, high blood pressure, heart attack, heart stent, palpitations, shortness of breat with exertion or chest pain Psych Psychiatric: Yes anxiety; No depression or hearing voices Resp Respiratory: No shortness of breath, No sleep apnea, No cough, No COPD, No asthma, No emphysema and No wheezing Gastro Gastrointestinal: No abdominal pain, No nausea or vomiting, No diarrhea, No constipation, No blood in stool, Yes acid reflux, No hemorrhoids, No ulcers, No gallbladder problem and No black,tarry stools [place] Hematologic: No blood thinners, No blood disorders, No bleeding, No anemia and No blood clots Neuro Neurologic: No system reviewed and no additional complaints, except as documented, No as per HPI, No abnormal gait, No abnormal hearing, No abnormal movements, No abnormal speech, No behavioral changes, No burning sensations, No confusion, No convulsions, No disequilibrium, No dizziness, No localized weakness, No frequent falls, No headache(s), No lack of coordination, No loss of vision, No memory loss, No numbness, No other visual disturbances, No radicular pain, No restless legs, No sensory deficit, No syncope, No tingling, No tremor(s), No weakness and No other Exam Const General: cooperative Orientation: alert and oriented x3 HENMT Head: normal to inspection Neck Neck: normal visual inspection and full ROM Chest Chest palpation inspection: normal inspection of the chest Resp Effort Inspection: normal respiratory effort Auscultation: clear to auscultation bilaterally Cardio Rate: regular rate Rhythm: regular rhythm GI Inspection: non-distended Palpation: soft and nontender Skin General: no rashes or lesions noted Neuro General: patient alert and patient oriented x3 Extrem General: full ROM Psych Appearance: grossly normal Mental Status: mental status grossly normal Assessment and Plan Assessment and Plan (1) GERD (gastroesophageal reflux disease): Status: Acute Plan: Patient has longstanding history of mild GERD. I discussed EGD for evaluation for French's esophagus or esophagitis and the patient is interested in having an EGD performed. I also advised him to start Pepcid as it seems like his acid reflux is mild. He is not interested in reflux surgery at this time. I explained endoscopy in detail to the patient. I explained the risks including but not limited to stroke or heart attack with anesthesia, perforation of the GI tract, bleeding, infection. I explained that any of these could necessitate further emergency surgery. The patient understands (more content not included)... Normal [facility] Orthopedic Visit Reporton Orthopedic Visit Report [facility] [address] [place] [address] OFFICE VISIT Date of Service: 03/15/24 MR#: [id number] Acct: [id number] Name: FABIO SIMPSON Rep #: [id number] : 1995 Provider: Dr. El Jaramillo MD Age/Sex: 28/M Location[place] [facility] Status: Signed Intake Vital Signs 12/23/23 10:14 02/23/24 06:27 Height 5 ft 10 in 5 ft 10 in Intake Visit Reasons: right elbow Accompanied by: Self Is patient in pain?: No Allergies No Known Allergies Allergy (Unverified 03/15/24 07:38) Medications ???Medication ???Instructions ???Recorded ???Confirmed ???Type NK 03/15/24 03/15/24 History PFSH Medical History Alcohol use Non-smoker Surgical History Hx of tonsillectomy Family History Father Myocardial infarction Grandfather Cancer Social History Smoking Status: Never smoker alcohol intake: current alcohol intake frequency: holidays/special occasions only HPI right elbow Details: This documentation accurately reflects the service provided and the decisions made by me, Dr. El Jaramillo MD 03/15/24 8630. Part of today???s visit was documented by Britt Olguin, acting as scribe. FABIO SIMPSON is a 28 year old M here today for s/p Right open cubital tunnel release dos 02/23/24. Patient notes that he is doing well. He has pain at incision site. He has intermittent pain. Patient denies any numbness, tingling or radiating pain into his hand. Patient denies any tylenol or ibuprofen for pain. Patient denies any redness or drainage from incision. Reagan is 3 weeks status post right cubital tunnel release. He has had good improvement of his ulnar numbness and dexterity. He has some incisional tenderness. He removed his Jorge wrap about a week ago. Ortho Exam General General: Yes no acute distress Neurologic: Yes alert and Yes oriented x3 Right Elbow ELBOW: Examination of the right elbow shows incision well-healed. No obvious tenderness on palpation. Tinel sign negative. Range of motion possible to 110 degrees. Coding Level of Care Code Global Post Op Diagnoses S/P cubital tunnel release Z98.890 Assessment and Plan Assessment and Plan (1) S/P cubital tunnel release: Status: Acute Plan Patient is 3 weeks status post right cubital tunnel release. He is doing well. At this time, I recommend that he avoid full flexion at the elbow for another 2 to 3 weeks after which he may work towards regaining full range of motion. He also has stable tunnel syndrome on the left side. This causes him some issues with dexterity in the left hand, but since this is his nondominant hand he is not severely affected by it. I asked him to come back on an as-needed basis if he starts to develop new symptoms or if he reaches a stage where he would like to get the left side done. Patient was in agreement. 03/15/24 08 Date El Jaramillo MD Cosigner Signature: Date (if applicable) CC: Dr. Silver Thompson MD [facility] 08-17-2023 [facility] Telephone ([employer] ---- FABIO SIMPSON ([id number]) 1995 M Date Time Provider Department 08/17/23 MIGUEL PRETTY JR During your visit today, we recorded the following information about you: Kassidy Valdez LPN 08/17/2023 9:06 AM Signed [facility] Scheduling dept calling asking for copy of MRI Lumbar order to be faxed to [phone]. Printed order and faxed as requested. Minerva Rubio RN 08/17/2023 4:04 PM Signed [facility] Scheduling Dept calling again, asking for copy of MRI Lumbar order to be re-faxed to [phone]. Refaxed as requested. Mienrva Rubio RN Allergies As of Date: 08/17/2023 Noted Allergy Reaction Environmental allergies [Other] 04/21/2007 Comments: Molds, trees, grasses, weeds Date Reviewed: 08/06/2023 Reviewed by: Ling Raines LPN - Fully Assessed Reason for Visit: [facility] requested copy of MRI order [Other] Prescriptions as of 08/17/2023 - sertraline (ZOLOFT) 50 mg tablet Take 50 mg by mouth once daily. 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 Problem List As Of Date 08/17/2023 Noted Resolved ALLERGIC RHINITIS NOS [J30.9] 05/10/2007 CHRONIC SINUSITIS NOS [J32.9] 06/09/2007 Encounter Status:Closed by KASSIDY VALDEZ LPN on 08/17/23 Normal [facility] Basophil percentageOrdered B y: Miguel Pretty on 08-11-2023 Basophil percentage 2 ug/L 0-9 [facility] Comment on above: Detection Limit = 1 Blood mercury measurement (m ass/volume)Ordered By: Miguel Pretty on 08-11-2023 Mercury (Bld) [Mass/Vol] < 1.0 ug/L 0.0-14.9 [facility] Comment on above: Environmental Exposu re: <15.0 Occupational Exposure: JAGDISH - Inorganic Mercury: 15.0 Detection Limit = 1.0Performed at: [facility] [address] [id number] Director: Nathan Ferrer PhD, Phone: [phone] at: [employer] [id number] Director: April Estes MD, Phone: [phone] Erythrocyte sedimentation ra teOrdered By: Miguel Pretty on 08-11-2023 ESR (Bld) [Velocity] mm/h 0-20 [facility] Iron measurement (mass/mass) Ordered By: Miguel Pretty on 08-11-2023 Iron (Unsp spec) [Mass/Mass] 91 ug/dL 65-175 [facility] Laboratory - Chemistry and C hemistry - challengeOrdered By: Miguel Pretty on 08-11-2023 Albumin [Mass/Vol] 4.5 g/dL 2.9-4.4 [facility] CK [Catalytic activity/Vol] 193 U/L 39-308 [facility] Cobalamin (Vitamin B12) [Mass/Vol] 433 pg/mL 211-911 [facility] Free T4 [Mass/Vol] 1.08 ng/dL 0.76-1.46 [facility] Mitotic spindle apparatus Ab [Titer] in Serum or PlasmaOrdered By: Miguel Pretty on 08-11-2023 Mitotic spindle apparatus Ab [Titer] Not Reportable [facility] No Panel InformationOrdered By: Miguel Pretty on 08-11-2023 Addendum Document Comment: . [facility] Comment on above: SPE shows increased albumin. Jwmgk-9-Qjknsvxzi 0.2 g/dL 0.0-0.4 [facility] Eoofy-4-Ildakyala 0.6 g/dL 0.4-1.0 [facility]UH Nuclear Membrane Pattern Not Reportable [facility] Gamma Globulins 0.9 g/dL 0.4-1.8 [facility] Lead < 1.0 ug/dL 0.0-3.4 [facility] Comment on above: Testing performed by Inductively coupled plasma/MassSpectrometry. Environmental Exposure: WHO Recommendation <5.0 Occupational Exposure: OSHA Lead Std 40.0 JAGDISH 30.0 Detection Limit = 1.0 Thyroid Stimulating Hormone (TSH) 1.09 uIU/mL 0.358-3.74 [facility] Total Iron Binding Capacity 276 ug/dL 250-450 [facility] Protein Fractions Elph [Inte rp]Ordered By: Miguel Pretty on 08-11-2023 Protein Fractions [Interp] Comment . [facility] Comment on above: Protein electrophore sis scan will follow via computer,mail, or director of strategic sourcing delivery. Serum albumin to globulin ra todd by protein electrophoresisOrdered By: Miguel Pretty on 08-11-2023 Albumin/Globulin Elph [Mass ratio] 1.9 0.7-1.7 [facility] Serum globulin measurement ( mass/volume)Ordered By: Miguel Pretty on 08-11-2023 Globulin (S) [Mass/Vol] 2.4 g/dL 2.2-3.9 [facility] Serum midbody antibody titer by immunofluorescenceOrdered By: Miguel Pretty on 08-11-2023 Midbody Ab IF (S) [Titer] Not Reportable [facility] Serum multiple nuclear dot p attern antinuclear IgG antibody (LUH) titer by immunofluoOrdered By: Miguel Pretty on 08-11-2023 Multiple nuclear dots nuclear IgG pattern IF (S) [Titer] Not Reportable [facility] Serum neuronal nuclear antib juan detection by immunofluorescenceOrdered By: Miguel Pretty on 08-11-2023 Neuronal nuclear Ab IF Ql (S) Not Reportable [facility] Serum nuclear antibody patte rn homogenous titer by immunofluorescenceOrdered By: Miguel Pretty on 08-11-2023 Homogenous nuclear Ab pattern IF (S) [Titer] Not Reportable [facility] Serum nuclear antibody titer by immunofluorescenceOrdered By: Miguel Pretty on 08-11-2023 Nuclear Ab IF (S) [Titer] Negative . [facility] Comment on above: Negative <1:80 Borde rline 1:80 Positive >1:80ICAP nomenclature: AC-0For more information about Hep-2 cell patterns useANApatterns.org, the official website for theInternational Consensus on Antinuclear Antibody (LUH)Patterns (ICAP).Performed at: [employer] [facility] [id number] Director: Nathan Ferrer PhD, Phone: [phone] Serum or plasma beta globuli n measurement by electrophoresis (mass/volume)Ordered By: Miguel Pretty on 08-11-2023 Beta globulin Elph [Mass/Vol] 0.7 g/dL 0.7-1.3 [facility] Serum or plasma ferritin diana surement (mass/volume)Ordered By: Miguel Pretty on 08-11-2023 Ferritin [Mass/Vol] 201 ng/mL 26-388 [facility] Serum or plasma iron saturat ion measurement (mass fraction)Ordered By: Miguel Pretty on 08-11-2023 Iron saturation [Mass fraction] 33.0 % 15.0-55.0 [facility] Serum or plasma protein mono clonal measurement by electrophoresis (mass/volume)Ordered By: Miguel Pretty on 08-11-2023 Protein.monoclonal Elph [Mass/Vol] Not Observed g/dL Not Observed [facility] Serum proliferating cell nuc lear antigen (PCNA) antibody titer by immunofluorescenceOrdered By: Miguel Pretty on 08-11-2023 PCNA extractable nuclear Ab IF (S) [Titer] Not Reportable [facility] Serum speckled nuclear antib juan pattern titerOrdered By: Miguel Pretty on 08-11-2023 Speckled nuclear Ab pattern (S) [Titer] Not Reportable [facility] Thin prep Papanicolaou smear with manual screeningOrdered By: Miguel Pretty on 08-11-2023 Thin prep Papanicolaou smear with manual screening Not Reportable [facility] Total protein bloodOrdered B y: Miguel Pretty on 08-11-2023 Protein [Mass/Vol] 6.9 g/dL 6.0-8.5 [facility] CNOVon 08-06-2023 [facility] Office Visit ([facility]ET[facility]) ---- FABIO SIMPSON ([id number]) 1995 Date Time Provider Department 08/06/23 10:20 AM MIGUEL PRETTY JR During your visit today, we recorded the following information about you: Pulse Respiration Blood pressure Weight 95/minute 16/minute 122/80 88 kg Miguel Pretty Jr., MD 08/06/2023 11:14 AM Signed ESTABLISHED PATIENT VISIT CHIEF COMPLAINT: Follow up with new symptoms. HISTORY OF PRESENT ILLNESS: Fabio Simpson is a 28 year old male, with a PMH significant for and per last office visit note of 01/22/23: 1. Twitch - ICD9: 781.0, ICD10: R25.3 [...] as follows and with which pt agrees. Per review of rad report from MRI of 02/10/23, imaging was normal. Pt now returns for new complaints. 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 Note that when patient was seen last visit, only complained of eye twitching. Pt now with complaints of numbness and tinging. PCP ordered MRI brain and C spine on 06/23/23. Patient MRI brain was unremarkable per rad report on 06/23/23. 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 There is no report of cord abnormalities or canal stenosis throughout the C spine. 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 States if he would run, he felt so numb, he would have fallen over. [place] like rubber bands were pulling him back. States he was also having tinging that started from C spine down to T spine (start from base of skull). Also reports shock sensations in his left rib cage. States he runs better now, but legs and feet feel 20 pounds heavier. States he was seen by a spine surgeon for the hemangioma who explained it was benign. EMG reportedly showed severe ulnar neuropathy per pt but lower ext EMG was normal. I did not receive report for upper ext but lower ext (they were performed on separate days) per neurologist at [facility], was normal. Reports they repeat lyme studies that were completely normal. States he talked to people about it and they told him he was out of shape. 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 States he know the ulnar neuropathy is a thing as he wakes with numbness in the ulnar spine. A T and L spine MRI was not ordered. I did receive prior EEG results from 01/28/23 was normal per report from [facility]. Twitching is better. Pt specifies this is not just a sensory abnormality... that he feels weak. No double vision. No change in speech. Denies any provoking factors such as virus or trauma. REVIEW OF SYSTEMS GENERAL:No weight loss, malaise [...] or swelling, back pain or muscle pain. NEUROLOGIC:See HPI. SKIN:Negative for lesions, rash, and itching. HEMATOLOGIC/LYMPHAT IC/IMMUNOLOGIC:Nega tive for prolonged bleeding, bruising easily or swollen nodes. ENDOCRINE: Negative for cold or heat intolerance, polyuria, polydipsia and goiter. The remainder of the ROS was reviewed and is negative. LAB/IMAGING: Those performed since patient's last visit have been reviewed. No results found for: WBC, RBC, HB, HCT, MCV, MCH, MCHC, RDWCV, PLT, MPV, GLUC, BUN, CREAT, NA, K, CHLOR, CO2, TPROT, ALB, CA, ALKPHOS, (more content not included)... Normal [facility] Absolute lymphocyte countOrd ered By: Silver Thompson on 05-22-2023 Lymphocytes Auto (Unsp spec) [#/Vol] 2.69 10*3/uL 0.83-4.51 [facility] Basophil percentageOrdered B y: Silver Thompson on 05-22-2023 Basophils/100 WBC (Bld) 0.9 % 0-1 [facility] Bilirubin [Mass/Vol] 1.00 mg/dL 0.20-1.00 [facility] Comment on above: For patients on eltr ombopag therapy, use of Dimension [place] TBIL is not recommended. Chloride [Moles/Vol] 106 mmol/L 98-107 [facility] Eosinophils/100 WBC (Bld) 1.3 % 0-5 [facility] Glucose [Mass/Vol] 108 mg/dL 74-106 [facility] Comment on above: Fasting Glucose resu lt from 100 to 125 mg/dL suggests IMPAIRED HOMEOSTASIS per A.D.A. criteria. Neutrophils (Bld) [#/Vol] 2.4 10*3/uL 2.0-7.7 [facility] Neutrophils/100 WBC (Bld) 42.1 % 47-70 [facility] Potassium [Moles/Vol] 4.1 mmol/L 3.5-5.1 [facility] Protein [Mass/Vol] 7.8 g/dL 6.4-8.2 [facility] Sodium [Moles/Vol] 141 mmol/L 136-145 [facility] WBC (Bld) [#/Vol] 5.6 10*3/uL 4.4-11.0 [facility] Blood erythrocytes count (nu mber/volume)Ordered By: Silver Thompson on 05-22-2023 RBC (Bld) [#/Vol] 5.10 10*6/uL 4.6-6.2 [facility] Blood hemoglobin measurement (mass/volume)Ordered By: Silver Thompson on 05-22-2023 Hemoglobin (Bld) [Mass/Vol] 14.7 g/dL 13.0-16. 5 [facility] Blood lymphocytes/100 leukoc ytesOrdered By: Silver Thompson on 05-22-2023 Lymphocytes/100 WBC (Bld) 48.1 % 19-41 [facility] Blood monocytes/100 leukocyt esOrdered By: Silver Thompson on 05-22-2023 Monocytes/100 WBC (Bld) 6.3 % 0-10 [facility] Blood platelet mean volumeOr dered By: Silver Thompson on 05-22-2023 Platelet mean volume (Bld) [Entitic vol] 10.1 fL 6.2-12.0 [facility] Determination of erythrocyte mean corpuscular volume (MCV)Ordered By: Silver Thompson on 05-22-2023 MCV (RBC) [Entitic vol] 84.1 fL 80-94 [facility] Erythrocyte sedimentation ra teOrdered By: Silver Thompson on 05-22-2023 ESR (Bld) [Velocity] mm/h 0-20 [facility] Hematocrit Auto (Bld) [Volum e fraction]Ordered By: Silver Thompson on 05-22-2023 Hematocrit (Bld) [Volume fraction] 42.9 % 40-54 [facility] Laboratory - Chemistry and C hemistry - challengeOrdered By: Silver Thompson on 05-22-2023 ALP [Catalytic activity/Vol] 36 U/L 45-117 [facility] ALT [Catalytic activity/Vol] 44 U/L 16-61 [facility] CO2 [Moles/Vol] 28.0 mmol/L 21.0-32.0 [facility] Globulin (S) [Mass/Vol] 3.2 g/dL 2.2-4.2 [facility] Urea nitrogen/Creatinine [Mass ratio] 13.1 mg/mg 10-20 [facility] Laboratory - Hematology and Cell countsOrdered By: Silver Thompson on 05-22-2023 Erythrocyte distribution width (RBC) [Entitic vol] 36.7 fL 35.1-43.9 [facility] Erythrocyte distribution width (RBC) [Ratio] 12.1 % 11.6-14.6 [facility] Immature granulocytes/100 WBC (Bld) 1.300 % 0.0-0.9 [facility] Comment on above: IG% - Immature Granu locytes (promyelocytes, myelocytes and metamyelocytes) > 1% indicates that a LEFT SHIFT is Present. MCH (RBC) [Entitic mass] 28.8 pg 27.0-32.0 [facility] Nucleated RBC/100 WBC (Bld) [Ratio] 0 % 0-5 [facility] MCHC Auto (RBC) [Mass/Vol]Or dered By: Silver Thompson on 05-22-2023 MCHC (RBC) [Mass/Vol] 34.3 g/dL 32-36 [facility] No Panel InformationOrdered By: Silver Thompson on 05-22-2023 C-Reactive Protein High Sensitivity 0.34 mg/L <3.00 [facility] Comment on above: Low Relative Risk of CVD <1.0 mg/L Average Relative Risk of CVD 1.0 - 3.0 mg/L High Relative Risk of CVD >3.0 mg/L Estimated GFR (MDRD) Amer 104 mL/min >60 [facility] Comment on above: GFR Calc Estimated GFR (MDRD) Non-Af Amer 86 mL/min >60 [facility] Comment on above: Non- GFR Calc Platelets bldOrdered By: Nelia Thompson on 05-22-2023 Platelets (Bld) [#/Vol] 184 10*3/uL 150-450 [facility] Serum or plasma albumin lester urement (mass/volume)Ordered By: Silver Thompson on 05-22-2023 Albumin [Mass/Vol] 4.6 g/dL 3.2-5.0 [facility] Serum or plasma albumin/glob ulin mass ratioOrdered By: Silver Thompson on 05-22-2023 Albumin/Globulin [Mass ratio] 1.4 {ratio} 0.9-2.4 [facility] Serum or plasma calcium lester urement (mass/volume)Ordered By: Silver Thompson on 05-22-2023 Calcium [Mass/Vol] 9.3 mg/dL 8.5-10.1 [facility] Serum or plasma creatinine m easurement (mass/volume)Ordered By: Silver Thompson on 05-22-2023 Creatinine [Mass/Vol] 1.07 mg/dL 0.70-1.30 [facility] Comment on above: The validity of the calculated GFR & GFRAA in patients over 70 years has not been determined. Clinical correlation is essential. Serum or plasma urea nitroge n measurement (mass/volume)Ordered By: Silver Thompson on 05-22-2023 Urea nitrogen [Mass/Vol] 14 mg/dL 7-18 [facility] Thin prep Papanicolaou smear with manual screeningOrdered By: Silver Thompson on 05-22-2023 Thin prep Papanicolaou smear with manual screening 23 U/L 15-37 [facility] Thin prep Papanicolaou smear with manual screening 7 5-15 [facility] Cerebrospinal fluid Borrelia burgdorferi 18kd IgG antibody detection by immunoblotOrdered By: Silver Thompson on 05-07-2023 B. burgdorferi 18kD IgG IB Ql (CSF) Absent . [facility] Cerebrospinal fluid Borrelia burgdorferi 23kD IgG antibody detection by immunoblotOrdered By: Silver Thompson on 05-07-2023 B. burgdorferi 23kD IgG IB Ql (CSF) Absent . [facility] Cerebrospinal fluid Borrelia burgdorferi 23kD IgM antibody detection by immunoblotOrdered By: Silver Thompson on 05-07-2023 B. burgdorferi 23kD IgM IB Ql (CSF) Absent . [facility] Cerebrospinal fluid Borrelia burgdorferi 28kD IgG antibody detection by immunoblotOrdered By: Silver Thompson on 05-07-2023 B. burgdorferi 28kD IgG IB Ql (CSF) Absent . [facility] Cerebrospinal fluid Borrelia burgdorferi 39kD IgG antibody detection by immunoblotOrdered By: Silver Thompson on 05-07-2023 B. burgdorferi 39kD IgG IB Ql (CSF) Absent . [facility] Cerebrospinal fluid Borrelia burgdorferi 39kD IgM antibody detection by immunoblotOrdered By: Silver Thompson on 05-07-2023 B. burgdorferi 39kD IgM IB Ql (CSF) Absent . [facility] Cerebrospinal fluid Borrelia burgdorferi 41kD IgM antibody detection by immunoblotOrdered By: Silver Thompson on 05-07-2023 B. burgdorferi 41kD IgM IB Ql (CSF) Absent . [facility] No Panel InformationOrdered By: Silver Thompson on 05-07-2023 Lyme Disease IgG Ab 30 kDa Band Absent . [facility] Lyme Disease IgG Ab 93 kDa Band Absent . [facility] Lyme Disease IgG West Blot Interp Negative . [facility] Comment on above: Positive: 5 of the f ollowing Borrelia-specific bands: 18,23,28,30,39,41,45,58, 66, and 93. Negative: No bands or banding patterns which do not meet positive criteria. Lyme Disease IgM Ab (Western Blot) Negative . [facility] Comment on above: Note: An equivocal o r positive EIA result followed by anegative Line Blot result is considered NEGATIVE. Anequivocal or positive EIA result followed by a positiveLine Blot is considered POSITIVE by the CDC.Positive: 2 of the following bands: 23,39 or 41Negative: No bands or banding patterns which do not meetpositive criteria.Criteria for positivity are those recommended byCDC/ASTPHLD. p23=Osp C, f99=[id number]:Sera from individuals with the following may cross reactin the Lyme Line Blot assays: other spirochetal diseases(periodontal disease, leptospirosis, relapsing fever, yaws,and pinta); connective autoimmune (Rheumatoid Arthritis andSystemic Lupus Erythematosus and also individuals withAntinuclear Antibody); other infections (Javier MountainSpotted Fever; Cristiano-Stanton Virus, and Cytomegalovirus).Please Note: Lyme immunoblot alone is not recommended forthe diagnosis of Lyme disease. Current guidelines recommendthe use of a two-tiered approach to Lyme serology testingto improve the sensitivity and specificity of testing.[facility] offers test code [id number] Lyme Disease Serology withReflex to aid in the diagnosis of Lyme Disease.Performed at: [address] [id number] Director: April Estes MD, Phone: [phone] Serum Borrelia burgdorferi 4 1kD IgG antibody detection by immunoblotOrdered By: Silver Thompson on 05-07-2023 B. burgdorferi 41kD IgG IB Ql (S) Absent . [facility] Serum Borrelia burgdorferi 6 6kD IgG antibody detection by immunoblotOrdered By: Silver Thompson on 05-07-2023 B. burgdorferi 66kD IgG IB Ql (S) Absent . [facility] Synovial fluid Borrelia mona dorferi 45kD IgG antibody detection by immunoblotOrdered By: Silver Thompson on 05-07-2023 B. burgdorferi 45kD IgG IB Ql (Syn fld) Absent . [facility] Synovial fluid Borrelia mona dorferi 58kD IgG antibody detection by immunoblotOrdered By: Silver Thompson on 05-07-2023 B. burgdorferi 58kD IgG IB Ql (Syn fld) Absent . [facility] 02-16-2023 MARVN Telephone (HARRIETT) ---- FABIO SIMPSON ([id number]) 1995 M Date Time Provider Department 02/16/23 MIGUEL PRETTY JR During your visit today, we recorded the following information about you: PETE Zaman 02/16/2023 1:26 PM Signed Results received via Fax from [facility]. Sent to scanned documents. Please watch for document upload and then copy link to sent to Dr. Pretty for review. Thank you. PETE Zaman LPN 02/16/2023 4:14 PM Signed Please see attached and advise. Scan on 02/10/2023 6:41 PM by External Provider, KEVIN: MRI Miguel Pretty MD 02/16/2023 10:01 PM Signed MRI rad report would suggest no intracranial etiology of patient's symptoms. Uncertain what to make of cyst, but could have pt follow up with ENT. If patient willing, we can provide referral. MD Marlys Medina LPN 02/17/2023 12:54 PM Signed Eterniam message sent to pt with results. OTTONIEL Chavez LPN 02/17/2023 1:40 PM Signed Pt would like referral to ENT. 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 Problem List As Of Date 02/16/2023 Noted Resolved ALLERGIC RHINITIS NOS [J30.9] 05/10/2007 CHRONIC SINUSITIS NOS [J32.9] 06/09/2007 Encounter Status:Closed by MIGUEL PRETTY on 02/16/23 [facility] 01-27-2023 [facility] Telephone (NESLBA) ---- FABIO SIMPSON ( ) 1995 M Date Time Provider Department 01/27/23 MIGUEL PRETTY JR During your visit today, we recorded the following information about you: Natalie Raines LPN 01/27/2023 11:07 AM Signed Pt calling for results of lab work done at [facility]. Pt was being tested for Lyme's Disease. Please advise pt. Natalie Trejo LPN 01/27/2023 11:18 AM Signed Labs received via [employer] from [facility]. Scanned in to chart and sent to provider for review. OTTONIEL Chavez LPN 01/27/2023 1:35 PM Signed Please see attached labs and review. Scan on 01/27/2023 12:33 PM by External Provider, PAMendozaC: Hematology OTTONIEL Chavez MD 01/28/2023 8:48 AM Signed From reports received, labs unremarkable. MD Trent Medina LPN 01/28/2023 9:09 AM Signed MC message sent to patient with providers results. Trent Casey LPN Allergies As of Date: 01/27/2023 Noted Allergy Reaction Environmental allergies [Other] 04/21/2007 Comments: Molds, trees, grasses, weeds Date Reviewed: 01/22/2023 Reviewed by: Miguel Pretty Jr., MD - Fully Assessed Reason for Visit: Results [95] Prescriptions as of 01/28/2023 - sertraline (ZOLOFT) 50 mg tablet Take 50 mg by mouth once daily. 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 Problem List As Of Date 01/27/2023 Noted Resolved ALLERGIC RHINITIS NOS [J30.9] 05/10/2007 CHRONIC SINUSITIS NOS [J32.9] 06/09/2007 Encounter Status:Closed by TRENT CASEY on 01/28/23 [facility] - Chemistry and C hemistry - challengeOrdered By: Dr. Pretty on 01-26-2023 Cobalamin (Vitamin B12) [Mass/Vol] 602 pg/mL [id number] [facility] Basophil percentageOrdered B y: Dr. Pretty on 01-22-2023 Bilirubin [Mass/Vol] 1.00 mg/dL 0.20-1.00 [facility] Comment on above: For patients on eltr ombopag therapy, use of Dimension [place] TBIL is not recommended. Chloride [Moles/Vol] 103 mmol/L 98-107 [facility] Glucose [Mass/Vol] 92 mg/dL 74-106 [facility] Potassium [Moles/Vol] 3.6 mmol/L 3.5-5.1 [facility] Protein [Mass/Vol] 7.6 g/dL 6.4-8.2 [facility] Sodium [Moles/Vol] 133 mmol/L 136-145 [facility] CNOVon 01-22-2023 CNOV Office Visit (HARRIETT) ---- FABIO SIMPSON ([id number]) 1995 Date Time Provider Department 01/22/23 8:00 AM MIGUEL PRETTY JR During your visit today, we recorded the following information about you: Temperature Pulse Respiration Blood pressure 98.5 degrees 92/minute 16/minute 130/85 Weight 88.1 kg Miguel Pretty MD 01/22/2023 8:54 AM Signed NEW PATIENT (CONSULT) HISTORY AND PHYSICAL EXAM PRIMARY CARE PHYSICIAN: No primary care provider on file. REASON FOR CONSULT: Facial twitching REFERRING PHYSICIAN: Silver Thompson MD CHIEF COMPLAINT: Twitching Consultation requested by Silver Thompson MD for an opinion regarding chief complaint of Patient presents with: New Patient and my final recommendations will be communicated back to the requesting physician by way of shared medical record or letter via US mail. HISTORY OF PRESENT ILLNESS: Fabio Simpson is a 27 year old male, [...] except coupe concussions as a kid. No VEHICLE SERVICE AGENT infection. No personal or family history of [...] lesions, rash, and itching. PSYCHIATRIC: See HPI. HEMATOLOGIC/LYMPHAT IC/IMMUNOLOGIC:Nega tive for prolonged bleeding, bruising easily or swollen [...] CRYO, CRYOQ, RF, AHBSQ, HEPCABEIA URINALYSIS Specific Orondo, Ur Date Value Ref Range Status 08/09/2008 [...] Age of Onset None Mother None Father (more content not included)... Normal [facility] Gloria 01-22-2023 MARVN Telephone ([employer]) ---- FABIO SIMPSON ([id number]) 1995 M Date Time Provider Department 01/22/23 MIGUEL PRETTY JR During your visit today, we recorded the following information about you: Rupal Roth OTTONIEL 01/22/2023 4:31 PM Signed Patient is asking that [facility] B12 lab order be faxed to [facility] lab at [phone]. He plans on going tomorrow to have this drawn. Please advise. Britt Nathan 01/22/2023 4:50 PM Signed Printed lab orders and faxed them to [facility] admissions. Allergies As of Date: 01/22/2023 Noted Allergy Reaction Environmental allergies [Other] 04/21/2007 Comments: Molds, trees, grasses, weeds Date Reviewed: 01/22/2023 Reviewed by: Miguel Pretty Jr., MD - Fully Assessed Reason for Visit: Lab Orders [4945] Prescriptions as of 01/22/2023 - sertraline (ZOLOFT) 50 mg tablet Take 50 mg by mouth once daily. 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 Problem List As Of Date 01/22/2023 Noted Resolved ALLERGIC RHINITIS NOS [J30.9] 05/10/2007 CHRONIC SINUSITIS NOS [J32.9] 06/09/2007 Encounter Status:Closed by BRITT PATTERSON on 01/22/23 [facility] CNPN Telephone (NEMNINA) ---- FABIO SIMPSON ([id number]) 1995 M Date Time Provider Department 01/22/23 MIGUEL PRETTY JR During your visit today, we recorded the following information about you: Francesca Lockett, RN 01/22/2023 10:33 AM Signed Mary Alice with [facility] Precert called in and reports provider needs to initiate the authorization for the MRI they ordered through the [facility]. Marlys Trejo LPN 01/22/2023 10:55 AM Signed Referral placed. Marlys Trejo LPN Allergies As of Date: 01/22/2023 Noted Allergy Reaction Environmental allergies [Other] 04/21/2007 Comments: Molds, trees, grasses, weeds Date Reviewed: 01/22/2023 Reviewed by: Miguel Pretty Jr., MD - Fully Assessed Reason for Visit: MRI Authorization [Other] Prescriptions as of 01/22/2023 - sertraline (ZOLOFT) 50 mg tablet Take 50 mg by mouth once daily. 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 Problem List As Of Date 01/22/2023 Noted Resolved ALLERGIC RHINITIS NOS [J30.9] 05/10/2007 CHRONIC SINUSITIS NOS [J32.9] 06/09/2007 Encounter Status:Closed by MARLYS TREJO on 01/22/23 [facility] Cerebrospinal fluid Borrelia burgdorferi 18kd IgG antibody detection by immunoblotOrdered By: Dr. Pretty on 01-22-2023 B. burgdorferi 18kD IgG IB Ql (CSF) Absent . [facility] Cerebrospinal fluid Borrelia burgdorferi 23kD IgG antibody detection by immunoblotOrdered By: Dr. Pretty on 01-22-2023 B. burgdorferi 23kD IgG IB Ql (CSF) Present . [facility] Cerebrospinal fluid Borrelia burgdorferi 23kD IgM antibody detection by immunoblotOrdered By: Dr. Pretty on 01-22-2023 B. burgdorferi 23kD IgM IB Ql (CSF) Absent . [facility] Cerebrospinal fluid Borrelia burgdorferi 28kD IgG antibody detection by immunoblotOrdered By: Dr. Pretty on 01-22-2023 B. burgdorferi 28kD IgG IB Ql (CSF) Absent . [facility] Cerebrospinal fluid Borrelia burgdorferi 39kD IgG antibody detection by immunoblotOrdered By: Dr. Pretty on 01-22-2023 B. burgdorferi 39kD IgG IB Ql (CSF) Absent . [facility] Cerebrospinal fluid Borrelia burgdorferi 39kD IgM antibody detection by immunoblotOrdered By: Dr. Pretty on 01-22-2023 B. burgdorferi 39kD IgM IB Ql (CSF) Absent . [facility] Cerebrospinal fluid Borrelia burgdorferi 41kD IgM antibody detection by immunoblotOrdered By: Dr. Pretty on 01-22-2023 B. burgdorferi 41kD IgM IB Ql (CSF) Absent . [facility] Laboratory - Chemistry and C hemistry - challengeOrdered By: Dr. Pretty on 01-22-2023 ALP [Catalytic activity/Vol] 41 U/L 45-117 [facility] ALT [Catalytic activity/Vol] 31 U/L 16-61 [facility] CO2 [Moles/Vol] 28.0 mmol/L 21.0-32.0 [facility] Free T4 [Mass/Vol] 0.97 ng/dL 0.76-1.46 [facility] Globulin (S) [Mass/Vol] 3.2 g/dL 2.2-4.2 [facility] Magnesium [Mass/Vol] 2.1 mg/dL 1.6-2.6 [facility] Urea nitrogen/Creatinine [Mass ratio] 14.2 mg/mg 10-20 [facility] No Panel InformationOrdered By: Dr. Pretty on 01-22-2023 Estimated GFR (MDRD) Amer 106 mL/min >60 [facility] Comment on above: GFR Calc Estimated GFR (MDRD) Non-Af Amer 87 mL/min >60 [facility] Comment on above: Non- GFR Calc Lyme Disease IgG Ab 30 kDa Band Absent . [facility] Lyme Disease IgG Ab 93 kDa Band Absent . [facility] Lyme Disease IgG West Blot Interp Negative . [facility] Comment on above: Positive: 5 of the f ollowing Borrelia-specific bands: 18,23,28,30,39,41,45,58, 66, and 93. Negative: No bands or banding patterns which do not meet positive criteria. Lyme Disease IgM Ab (Western Blot) Negative . [facility] Comment on above: Note: An equivocal o r positive EIA result followed by anegative Line Blot result is considered NEGATIVE. Anequivocal or positive EIA result followed by a positiveLine Blot is considered POSITIVE by the CDC.Positive: 2 of the following bands: 23,39 or 41Negative: No bands or banding patterns which do not meetpositive criteria.Criteria for positivity are those recommended byCDC/ASTPHLD. p23=Osp C, j65=[id number]:Sera from individuals with the following may cross reactin the Lyme Line Blot assays: other spirochetal diseases(periodontal disease, leptospirosis, relapsing fever, yaws,and pinta); connective autoimmune (Rheumatoid Arthritis andSystemic Lupus Erythematosus and also individuals withAntinuclear Antibody); other infections (Javier MountainSpotted Fever; Cristiano-Stanton Virus, and Cytomegalovirus).Please Note: Lyme immunoblot alone is not recommended forthe diagnosis of Lyme disease. Current guidelines recommendthe use of a two-tiered approach to Lyme serology testingto improve the sensitivity and specificity of testing.[facility] test code [id number] Lyme Disease Serology withReflex to aid in the diagnosis of Lyme Disease.Performed at: [facility] [address] [id number] Director: April Estes MD, Phone: [phone] Thyroid Stimulating Hormone (TSH) 1.29 uIU/mL 0.358-3.74 [facility] Serum Borrelia burgdorferi 4 1kD IgG antibody detection by immunoblotOrdered By: Dr. Pretty on 01-22-2023 B. burgdorferi 41kD IgG IB Ql (S) Present . [facility] Serum Borrelia burgdorferi 6 6kD IgG antibody detection by immunoblotOrdered By: Dr. Pretty on 01-22-2023 B. burgdorferi 66kD IgG IB Ql (S) Absent . [facility] Serum nuclear antibody titer by immunofluorescenceOrdered By: Dr. Pretty on 01-22-2023 Nuclear Ab IF (S) [Titer] Negative . [facility] Comment on above: Negative <1:80 Jean Marie thurston 1:80 Positive >1:80ICAP nomenclature: AC-0For more information about Hep-2 cell patterns useANApatterns.org, the official website for theInternational Consensus on Antinuclear Antibody (LUH)Patterns (ICAP).Performed at: [facility] [address] [id number] Director: Nathan Ferrer PhD, Phone: [phone] Serum or plasma albumin lester urement (mass/volume)Ordered By: Dr. Pretty on 01-22-2023 Albumin [Mass/Vol] 4.4 g/dL 3.2-5.0 [facility] Serum or plasma albumin/glob ulin mass ratioOrdered By: Dr. Pretty on 01-22-2023 Albumin/Globulin [Mass ratio] 1.4 {ratio} 0.9-2.4 [facility] Serum or plasma calcium lester urement (mass/volume)Ordered By: Dr. Pretty on 01-22-2023 Calcium [Mass/Vol] 8.9 mg/dL 8.5-10.1 [facility] Serum or plasma creatinine m easurement (mass/volume)Ordered By: Dr. Pretty on 01-22-2023 Creatinine [Mass/Vol] 1.06 mg/dL 0.70-1.30 [facility] Comment on above: The validity of the calculated GFR & GFRAA in patients over 70 years has not been determined. Clinical correlation is essential. Serum or plasma ferritin diana surement (mass/volume)Ordered By: Dr. Pretty on 01-22-2023 Ferritin [Mass/Vol] 245 ng/mL 26-388 [facility] Serum or plasma urea nitroge n measurement (mass/volume)Ordered By: Dr. Pretty on 01-22-2023 Urea nitrogen [Mass/Vol] 15 mg/dL 7-18 [facility] Synovial fluid Borrelia mona dorferi 45kD IgG antibody detection by immunoblotOrdered By: Dr. Pretty on 01-22-2023 B. burgdorferi 45kD IgG IB Ql (Syn fld) Absent . [facility] Synovial fluid Borrelia mona dorferi 58kD IgG antibody detection by immunoblotOrdered By: Dr. Pretty on 01-22-2023 B. burgdorferi 58kD IgG IB Ql (Syn fld) Absent . [facility] Thin prep Papanicolaou smear with manual screeningOrdered By: Dr. Pretty on 01-22-2023 Thin prep Papanicolaou smear with manual screening 19 U/L 15-37 [facility] Thin prep Papanicolaou smear with manual screening 2 5-15 [facility] CNPNon 12-17-2022 CNPN Telephone (NIQ) ---- FABIO SIMPSON ([id number]) 1995 M Date Time Provider Department 12/17/22 NEUROLOGY PROVIDER CYNTHIA During your visit today, we recorded the following information about you: Britt Nathan 12/17/2022 5:04 PM Signed Called the patient to schedule an appointment. He needs to be seen for abnormal involuntary movement and twitching. The referral and medical records were sent for scanning. Allergies As of Date: 12/17/2022 Noted Allergy Reaction Environmental allergies [Other] 04/21/2007 Comments: Molds, trees, grasses, weeds Date Reviewed: 05/18/2016 Reviewed by: Cheryl Mota LPN - Fully Assessed Reason for Visit: Referral Information [[id number]] Appointment [[id number]] Prescriptions as of 12/17/2022 - valACYclovir (VALTREX) 500 mg tablet 1 tab twice daily for 3 days then daily throughout the wrestling season. Problem List As Of Date 12/17/2022 Noted Resolved ALLERGIC RHINITIS NOS [J30.9] 05/10/2007 CHRONIC SINUSITIS NOS [J32.9] 06/09/2007 Encounter Status:Closed by BRITT PATTERSON on 12[facility]17/22 [facility] Telephone (HARRIETT) ---- FABIO SIMPSON ([id number]) 1995 M Date Time Provider Department 12/15/22 MIGUEL PRETTY JR During your visit today, we recorded the following information about you: Marlys Trejo LPN 12/15/2022 9:00 AM Signed Referral received from [facility] for twitching of face and nose. Information given to Britt Dobbins for scheduling. Marlys Trejo LPN Allergies As of Date: 12/15/2022 Noted Allergy Reaction Environmental allergies [Other] 04/21/2007 Comments: Molds, trees, grasses, weeds Date Reviewed: 05/18/2016 Reviewed by: Cheryl Mota LPN - Fully Assessed Reason for Visit: Appointment [186] Prescriptions as of 12/15/2022 - valACYclovir (VALTREX) 500 mg tablet 1 tab twice daily for 3 days then daily throughout the wrestling season. Problem List As Of Date 12/15/2022 Noted Resolved ALLERGIC RHINITIS NOS [J30.9] 05/10/2007 CHRONIC SINUSITIS NOS [J32.9] 06/09/2007 Encounter Status:Closed by MARLYS TREJO on 12/15/22 Normal [facility] Vital Signs Date Time Vital Sign Value Performing Clinician Facility 08-06-2023 10:31-0500 Body weight 88 kg Miguel Pretty Jr., MD Work Phone: [facility] 08-06-2023 10:31-0500 Diastolic blood pressure 80 mm[Hg] Miguel Pretty Jr., MD Work Phone: [facility] 08-06-2023 10:31-0500 Heart rate 95 /min Miguel Pretty Jr., MD Work Phone: [facility] 08-06-2023 10:31-0500 Respiratory rate 16 /min Miguel Pretty Jr., MD Work Phone: [facility] 08-06-2023 10:31-0500 SaO2% (BldA) [Mass fraction] 97 % Miguel Pretty Jr., MD Work Phone: [facility] 08-06-2023 10:31-0500 Systolic blood pressure 122 mm[Hg] Miguel Pretty Jr., MD Work Phone: [facility] 07-06-2023 07:38-0400 Body height 177.[address] Silver Thompson Work Phone: [facility] 07-06-2023 07:38-0400 Body mass index (BMI) [Ratio] 28.4 kg/m2 Dr. Silver Thompson Work Phone: [facility] 07-06-2023 07:38-0400 Body weight 89.[address] Silver Thompson Work Phone: [facility] 01-22-2023 07:59-0400 Body temperature 98.49 [degF] Miguel Pretty Jr., MD Work Phone: [facility] 01-22-2023 07:59-0400 Body weight 88.09 kg Miguel Pretty Jr., MD Work Phone: [facility] 01-22-2023 07:59-0400 Diastolic blood pressure 85 mm[Hg] Miguel Pretty Jr., MD Work Phone: [facility] 01-22-2023 07:59-0400 Heart rate 92 /min Miguel Pretty Jr., MD Work Phone: [facility] 01-22-2023 07:59-0400 Respiratory rate 16 /min Miguel Pretty Jr., MD Work Phone: [facility] 01-22-2023 07:59-0400 SaO2% (BldA) [Mass fraction] 98 % iMguel Pretty Jr., MD Work Phone: [facility] 01-22-2023 07:59-0400 Systolic blood pressure 130 mm[Hg] Miguel Pretty Jr., MD Work Phone: [facility] Encounters Encounter Date Encounter Type Care Provider Facility Start: 02-28-2025 End: 02-28-2025 ambulatory Rhett Asencio [facility] Work Phone: [facility] Work Phone: Start: 02-28-2025 End: 02-28-2025 Patient encounter procedure Jo Robles [facility] -Laboratory [facility] Start: 02-28-2025 End: 02-28-2025 ambulatory Jo Robles Facility:[facility] Start: 01-26-2025 Non-patient / Non-visit Dr. Orlando del real MD -[facility] Start: 01-26-2025 End: 01-26-2025 ambulatory Rhett Asencio [employer] Work Phone: [facility] Work Phone: Start: 01-26-2025 End: 01-26-2025 Patient encounter procedure Jo Robles [employer] [facility] -Cardiovascular Services Work Phone: Start: 01-26-2025 End: 01-26-2025 ambulatory Rhett Asencio VSC Facility:[facility] Start: 11-02-2024 ambulatory Rhett Asencio VSC Facility :[facility] Start: 07-20-2024 End: 07-20-2024 ambulatory Rhett Asencio VSC Facility:[facility] Start: 07-05-2024 ambulatory Rhett Asencio VSC Facility :[facility] Start: 07-04-2024 End: 07-05-2024 ambulatory Rhett Asencio VSC Facility:[facility] Start: 06-29-2024 ambulatory Rhett Asencio VSC Facility :[facility] Start: 06-29-2024 End: 06-29-2024 ambulatory Rhett Asencio VSC Facility:[facility] Start: 06-01-2024 End: 06-01-2024 ambulatory Rhett Asencio VSC Facility:[facility] Start: 05-16-2024 ambulatory Rhett Asencio VSC Facility :[facility] Start: 05-16-2024 End: 05-16-2024 ambulatory Rhett Asencio VSC Facility:[facility] Start: 03-15-2024 End: 03-15-20[facility] Start: 09-13-2023 End: 09-13-[address] Silver Thompson Work Phone: [facility] Work Phone: Start: 09-13-2023 End: 09-13-[address] Silver Thompson Work Phone: [facility] Work Phone: Start: 08-17-2023 Telephone encounter Miguel Pretty MD Work Phone: Neurology Comment on above: [facility] requested copy o f MRI order Start: 08-11-2023 End: 08-11-[address] Silver Thompson Work Phone: [facility] Work Phone: Start: 08-11-2023 End: 08-11-[address] Silver Thompson Work Phone: [facility]-Laboratory Work Phone: Start: 08-06-2023 End: 08-06-2023 ambulatory MIGUEL PRETTY JR Facility:[facility] Start: 08-06-2023 End: 08-06-2023 Patient encounter procedure Miguel Pretty MD Work Phone: Neurology Comment on above: Paresthesia of skin (Primary Dx); General weakness; Neuropathy - (NOS); Ulnar neuropathy of left upper extremity; Spinal stenosis of lumbar region without neurogenic claudication Start: 07-06-2023 End: 07-06-[address] Silver Thompson Work Phone: [facility] Work Phone: Start: 06-23-2023 End: 06-23-[address] Silver Thompson Work Phone: [facility]-MRI - [facility] Work Phone: Start: 06-21-2023 Non-patient / Non-visit Dr. Bhupinder Thompson Work Phone: [facility] Start: 06-21-2023 End: 06-21-[address] Silver Thompson Work Phone: [facility]-Pulmonary Services/Neurology Work Phone: Start: 06-16-2023 Non-patient / Non-visit Dr. Bhupinder Thompson Work Phone: [facility] Start: 06-16-2023 End: 06-16-[address] Silver Thompson Work Phone: [facility]-Pulmonary Services/Neurology Work Phone: Start: 05-22-2023 End: 05-22-2023 ambulatory [facility] Work Phone: Start: 05-22-2023 End: 05-22-2023 Patient encounter procedure [facility]-Laboratory Work Phone: Start: 05-07-2023 End: 05-07-2023 Patient encounter procedure [facility]-Laboratory, [facility] Start: 02-10-2023 End: 02-10-2023 Patient encounter procedure [facility]-MRI - [facility] Work Phone: Start: 01-28-2023 End: 01-28-2023 ambulatory [facility] Work Phone: Start: 01-28-2023 End: 01-28-2023 Patient encounter procedure [facility]-Pulmonary Services/Neurology Start: 01-27-2023 Telephone encounter Miguel Pretty MD Work Phone: Sleep Comment on above: Results Start: 01-22-2023 Telephone encounter Miguel Pretty MD Work Phone: Neurology Comment on above: MRI Authorization Start: 01-22-2023 End: 01-22-2023 ambulatory MIGUEL PRETTY [facility] Work Phone: Start: 01-22-2023 End: 01-22-2023 Patient encounter procedure Miguel Pretty MD Work Phone: Neurology Comment on above: Twitch (Primary Dx); Abnormal involuntary movement; Vasovagal episode; Demyelinating disease of central nervous system (HCC) Start: 12-17-2022 Telephone encounter Neurology Provid er Neurology Comment on above: Referral Information ; Appointment Start: 12-15-2022 Telephone encounter Miguel Pretty MD Work Phone: Neurology Comment on above: Appointment Start: 05-23-2022 End: 05-27-2022 ambulatory [facility] Work Phone: Start: 05-23-2022 End: 05-27-2022 Discharged Recurring [facility]-Laboratory, Specimen Procedures Date Procedure Procedure Detail Performing Clinician Start: 02-28-2025 D-dimer assay, quantitative Rhett Asencio [employer] Work Phone: Comment on above: NORMAL D-Dimer level (<0.50) indicates no DVT or PE. Start: 09-13-2023 MRI of lumbar spine Dr. Silver Thompson Work Phone: Start: 09-13-2023 MRI of thoracic spine Janis Thompson Work Phone: Start: 07-06-2023 X-ray of cervical spine Dr. Silver Thompson Work Phone: Start: 06-23-2023 MRI of brain with contrast Dr. Silver Thompson Work Phone: Start: 06-23-2023 MRI of cervical spin e with contrast Dr. Silver Thompson Work Phone: Start: 02-10-2023 MRI of brain without contrast Viral antigen assay Plan of Treatment Date Care Activity Detail Author Start: 06-16-2029 Urine microalbumin profile DTaP,Tdap,Td Vaccine (7 - Td or Tdap) [facility] Start: 08-11-2023 Heavy metals measurement [facility] Start: 08-06-2023 End: 11-05-2023 LUH BY IFA WITH REFLEX LUH BY IFA WITH REFLEX Lab Routine Paresthesia of skin General weakness Expected: 08/06/2023, Expires: 11/05/2023 [facility] Work Phone: Comment on above: Expected: 08/06/2023 , Expires: 11/05/2023 Start: 08-06-2023 End: 11-05-2023 Cobalamin (Vitamin B12) [Mass/volume] in Serum or Plasma VITAMIN B12 BLOOD Lab Routine Paresthesia of skin General weakness Expected: 08/06/2023, Expires: 11/05/2023 [facility] Work Phone: Comment on above: Expected: 08/06/2023 , Expires: 11/05/2023 Start: 08-06-2023 End: 11-05-2023 Creatine kinase [Enzymatic activity/volume] in Serum or Plasma CK CREATINE KINASE Lab Routine General weakness Expected: 08/06/2023, Expires: 11/05/2023 [facility] Work Phone: Comment on above: Expected: 08/06/2023 , Expires: 11/05/2023 Start: 08-06-2023 End: 11-05-2023 Erythrocyte sedimentation rate SED RATE WESTERGREN Lab Routine Paresthesia of skin General weakness Expected: 08/06/2023, Expires: 11/05/2023 [facility] Work Phone: Comment on above: Expected: 08/06/2023 , Expires: 11/05/2023 Start: 08-06-2023 End: 11-05-2023 Ferritin [Mass/volume] in Serum or Plasma FERRITIN BLD Lab Routine Paresthesia of skin Expected: 08/06/2023, Expires: 11/05/2023 [facility] Work Phone: Comment on above: Expected: 08/06/2023 , Expires: 11/05/2023 Start: 08-06-2023 End: 11-05-2023 HEAVY METALS SCRN BL HEAVY METALS SCRN BL Lab Routine Paresthesia of skin Expected: 08/06/2023, Expires: 11/05/2023 [facility] Work Phone: Comment on above: Expected: 08/06/2023 , Expires: 11/05/2023 Start: 08-06-2023 End: 11-05-2023 Iron and Iron binding capacity panel - Serum or Plasma IRON + TIBC Lab Routine Paresthesia of skin Expected: 08/06/2023, Expires: 11/05/2023 [facility] Work Phone: Comment on above: Expected: 08/06/2023 , Expires: 11/05/2023 Start: 08-06-2023 End: 11-05-2023 PROTEIN ELECTROPHORESIS SERUM W/INTERP PROTEIN ELECTROPHORESIS SERUM W/INTERP Lab Routine Neuropathy - (NOS) Expected: 08/06/2023, Expires: 11/05/2023 [facility] Work Phone: Comment on above: Expected: 08/06/2023 , Expires: 11/05/2023 Start: 08-06-2023 End: 11-05-2023 Thyrotropin [Units/volume] in Serum or Plasma TSH BLD Lab Routine Paresthesia of skin General weakness Expected: 08/06/2023, Expires: 11/05/2023 [facility] Work Phone: Comment on above: Expected: 08/06/2023 , Expires: 11/05/2023 Start: 08-06-2023 End: 11-05-2023 Thyroxine (T4) free [Mass/volume] in Serum or Plasma T4 FREE/FREE THYROX Lab Routine Paresthesia of skin General weakness Expected: 08/06/2023, Expires: 11/05/2023 [facility] Work Phone: Comment on above: Expected: 08/06/2023 , Expires: 11/05/2023 Start: 05-28-2023 Covid-19 Vaccine () Covid-19 Vaccine () [facility] Start: 01-28-2023 [facility] Start: 01-22-2023 End: 03-24-2023 LUH BY IFA WITH REFLEX LUH BY IFA WITH REFLEX Lab Routine Demyelinating disease of central nervous system (HCC) Twitch Abnormal involuntary movement Vasovagal episode Expected: 01/22/2023, Expires: 03/24/2023 [facility] Work Phone: Comment on above: Expected: 01/22/2023 , Expires: 03/24/2023 Start: 01-22-2023 End: 03-24-2023 Borrelia burgdorferi IgG and IgM panel - Serum LYME AB LATE >30 DAYS SYMPTOMS Lab Routine Demyelinating disease of central nervous system (HCC) Twitch Abnormal involuntary movement Vasovagal episode Expected: 01/22/2023, Expires: 03/24/2023 [facility] Work Phone: Comment on above: Expected: 01/22/2023 , Expires: 03/24/2023 Start: 01-22-2023 End: 03-24-2023 Cobalamin (Vitamin B12) [Mass/volume] in Serum or Plasma VITAMIN B12 BLOOD Lab Routine Demyelinating disease of central nervous system (HCC) Twitch Abnormal involuntary movement Vasovagal episode Expected: 01/22/2023, Expires: 03/24/2023 [facility] Work Phone: Comment on above: Expected: 01/22/2023 , Expires: 03/24/2023 Start: 01-22-2023 End: 03-24-2023 Comprehensive metabolic 2000 panel - Serum or Plasma COMP METABOLIC PANEL Lab Routine Demyelinating disease of central nervous system (HCC) Twitch Abnormal involuntary movement Vasovagal episode Expected: 01/22/2023, Expires: 03/24/2023 [facility] Work Phone: Comment on above: Expected: 01/22/2023 , Expires: 03/24/2023 Start: 01-22-2023 End: 03-24-2023 Ferritin [Mass/volume] in Serum or Plasma FERRITIN BLD Lab Routine Demyelinating disease of central nervous system (HCC) Twitch Abnormal involuntary movement Vasovagal episode Expected: 01/22/2023, Expires: 03/24/2023 [facility] Work Phone: Comment on above: Expected: 01/22/2023 , Expires: 03/24/2023 Start: 01-22-2023 End: 03-24-2023 Magnesium [Mass/volume] in Serum or Plasma MAGNESIUM BLD Lab Routine Demyelinating disease of central nervous system (HCC) Twitch Abnormal involuntary movement Vasovagal episode Expected: 01/22/2023, Expires: 03/24/2023 [facility] Work Phone: Comment on above: Expected: 01/22/2023 , Expires: 03/24/2023 Start: 01-22-2023 End: 03-24-2023 Thyrotropin [Units/volume] in Serum or Plasma TSH BLD Lab Routine Demyelinating disease of central nervous system (HCC) Twitch Abnormal involuntary movement Vasovagal episode Expected: 01/22/2023, Expires: 03/24/2023 [facility] Work Phone: Comment on above: Expected: 01/22/2023 , Expires: 03/24/2023 Start: 01-22-2023 End: 03-24-2023 Thyroxine (T4) free [Mass/volume] in Serum or Plasma T4 FREE/FREE THYROX Lab Routine Demyelinating disease of central nervous system (HCC) Twitch Abnormal involuntary movement Vasovagal episode Expected: 01/22/2023, Expires: 03/24/2023 [facility] Work Phone: Comment on above: Expected: 01/22/2023 , Expires: 03/24/2023 Start: 09-27-2022 DEPRESSION ASSESSMENT DEPRESSION ASS ESSMENT [facility] Start: 05-28-2022 Influenza vaccination INFLUENZA (#1) [facility] Start: 12-23-2020 COVID-19 VACCINE (3 - Booster for Moderna series) COVID-19 VACCINE (3 - Booster for Moderna series) [facility] Start: 06-17-2015 Urine microalbumin profile DTAP,TDAP,TD (6 - Td or Tdap) [facility] Start: 2011 HEPATITIS C SCREENING HEPATITIS C SC REENING [facility] Start: 2011 HIV SCREENING HIV SCREENING [facility] Start: 1993 COVID-19 VACCINE (#1) COVID-19 VACCI NE (#1) [facility] Albumin/Globulin [Ma ss Ratio] in Serum or Plasma by Electrophoresis [facility] Arsenic measurement [facility] Electrophoresis: albumin [facility] Electrophoresis: [id number] [facility] Electrophoresis: [id number] [facility] Electrophoresis: lamar ma globulin [facility] End: 01-23-2024 EPIL EEG ROUTINE EPIL EEG ROUTINE NEUROLOGY Routine Twitch Abnormal involuntary movement Vasovagal episode 1 Occurrences starting 01/22/2023 until 01/23/2024 [facility] Work Phone: Comment on above: 1 Occurrences starti ng 01/22/2023 until 01/23/2024 Globulin measurement [facility] Lead measurement [facility] Mercury measurement, blood [facility] End: 02-21-2024 Mri brain brain stem w/o contrast material MRI BRAIN WO IVCON Radiology Routine Demyelinating disease of central nervous system (HCC) Twitch Abnormal involuntary movement Vasovagal episode 1 Occurrences starting 01/22/2023 until 02/21/2024 [facility] Work Phone: Comment on above: 1 Occurrences starti ng 01/22/2023 until 02/21/2024 End: 09-04-2024 Mri spinal canal lumbar w/o contrast material MRI LUMBAR SPINE [facility] Radiology Routine Spinal stenosis of lumbar region without neurogenic claudication 1 Occurrences starting 08/06/2023 until 09/04/2024 [facility] Work Phone: Comment on above: 1 Occurrences starti ng 08/06/2023 until 09/04/2024 Protein electrophore sis panel - Serum or Plasma [facility] Serum protein electrophoresis [facility] Total globulins measurement [facility] Immunizations Immunization Date Immunization Notes Care Provider Fa cili 07-07-2023 influenza, injectabl e, quadrivalent, preservative free Dr. Silver Thompson Work Phone: [facility] 10-28-2020 Covid (Moderna) [facility] 09-30-2020 Covid (Moderna) [facility] 07-31-2019 influenza, injectabl e, quadrivalent, preservative free Dr. Silver Thompson Work Phone: [facility] 07-31-2019 influenza, seasonal, injectable [facility] 06-16-2019 tetanus toxoid, redu chris diphtheria toxoid, and acellular pertussis vaccine, adsorbed Rhett Asencio [employer] Work Phone: [facility] 06-24-2018 influenza, injectabl e, quadrivalent, preservative free Dr. Silver Thompson Work Phone: [facility] 06-24-2018 influenza, seasonal, injectable [facility] 06-24-2017 influenza, injectabl e, quadrivalent, preservative free Dr. Silver Thompson Work Phone: [facility] 06-24-2017 influenza, seasonal, injectable [facility] 06-26-2016 influenza, injectabl e, quadrivalent, preservative free Dr. Silver Thompson Work Phone: [facility] 06-26-2016 influenza, seasonal, injectable [facility] 03-23-2014 hepatitis A vaccine, pediatric/adolescent dosage, 2 dose schedule Miguel Pretty Jr., MD Work Phone: [facility] 07-23-2011 influenza virus vaccine, live, attenuated, for intranasal use Miguel Pretty Jr., MD Work Phone: [facility] 08-09-2008 hepatitis A vaccine, unspecified formulation Miguel Pretty Jr., MD Work Phone: [facility] Work Phone: 08-09-2008 influenza virus vaccine, live, attenuated, for intranasal use Miguel Pretty Jr., MD Work Phone: [facility] Work Phone: 07-19-2007 influenza virus vaccine, live, attenuated, for intranasal use Miguel Pretty Jr., MD Work Phone: [facility] Work Phone: 07-19-2007 Meningococcal, MCV4, unspecified conjugate formulation(groups A, C, Y and W-135) Miguel Pretty Jr., MD Work Phone: [facility] Work Phone: 06-09-2007 pneumococcal conjuga te vaccine, 7 valent Miguel Pretty Jr., MD Work Phone: [facility] Work Phone: 06-17-2005 tetanus toxoid, redu chris diphtheria toxoid, and acellular pertussis vaccine, adsorbed Miguel Pretty Jr., MD Work Phone: [facility] 01-12-2000 hepatitis B vaccine, pediatric or pediatric/adolescent dosage Miguel Pretty Jr., MD Work Phone: [facility] Work Phone: 07-08-1998 hepatitis B vaccine, pediatric or pediatric/adolescent dosage Miguel Pretty Jr., MD Work Phone: [facility] Work Phone: 05-16-1998 diphtheria, tetanus toxoids and pertussis vaccine Miguel Pretty Jr., MD Work Phone: [facility] Work Phone: 05-16-1998 hepatitis B vaccine, pediatric or pediatric/adolescent dosage Miguel Pretty Jr., MD Work Phone: [facility] Work Phone: 05-16-1998 measles, mumps and rubella virus vaccine Miguel Pretty Jr., MD Work Phone: [facility] Work Phone: 1997 chicken pox (disease) Suman Pretty Jr., MD Work Phone: [facility] Work Phone: 10-23-1994 diphtheria, tetanus toxoids and pertussis vaccine Miguel Pretty Jr., MD Work Phone: [facility] Work Phone: 10-23-1994 haemophilus influenz ae type b vaccine, HbOC conjugate Miguel Pretty Jr., MD Work Phone: [facility] Work Phone: 10-23-1994 measles, mumps and rubella virus vaccine Miguel Pretty Jr., MD Work Phone: [facility] Work Phone: 10-23-1994 trivalent poliovirus vaccine, live, oral Miguel Pretty Jr., MD Work Phone: [facility] Work Phone: 06-29-1994 diphtheria, tetanus toxoids and pertussis vaccine Miguel Pretty Jr., MD Work Phone: [facility] Work Phone: 06-29-1994 trivalent poliovirus vaccine, live, oral Miguel Pretty Jr., MD Work Phone: [facility] Work Phone: 01-13-1994 diphtheria, tetanus toxoids and pertussis vaccine Miguel Pretty Jr., MD Work Phone: [facility] Work Phone: 01-13-1994 haemophilus influenz ae type b vaccine, HbOC conjugate Miguel Pretty Jr., MD Work Phone: [facility] Work Phone: 01-13-1994 trivalent poliovirus vaccine, live, oral Miguel Pretty Jr., MD Work Phone: [facility] Work Phone: 1993 diphtheria, tetanus toxoids and pertussis vaccine Miguel Pretty Jr., MD Work Phone: [facility] Work Phone: 1993 haemophilus influenz ae type b vaccine, HbOC conjugate Miguel Pretty Jr., MD Work Phone: [facility] Work Phone: 1993 trivalent poliovirus vaccine, live, oral Miguel Pretty Jr., MD Work Phone: [facility] Work Phone: Payers Date Payer Category Payer Unknown [id number] 2024 Self-pay [id number] 2022 [facility] [id number] 2022-Present [phone] [address] [place] [address] PPO [id number]. [id number] 2022 Unknown [id number] 2014 Unknown HOSPITAL/MEDICAL GENERIC MEDICAL GENERIC [id number] 2014-Present [phone] [place] [id number] Indemnity [id number] Unknown [id number] Unknown [id number] 2.16.840.1.436412.3.579.2. 462 Unknown [id number] 2.16.840.1.859596.3.579.2. 462 Unknown [id number] 2.16.840.1.555008.3.579.2. 462 Unknown [id number] 2.16.840.1.783018.3.579.2. 462 Unknown [id number] 2.16.840.1.529832.3.579.2. 462 Unknown [id number] 2.16.840.1.105553.3.579.2. 462 Unknown [id number] 2.16.840.1.499307.3.579.2. 462 Unknown [id number] 2.16.840.1.930779.3.579.2. 462 Unknown [id number] 2.16.840.1.431957.3.579.2. 462 Unknown [id number] 2.16.840.1.380880.3.579.2. 462 Unknown [id number] 2.16.840.1.631660.3.579.2. 462 Unknown [id number] 2.16.840.1.895258.3.579.2. 462 Unknown [id number] 2.16.840.1.283036.3.579.2. 462 Unknown [id number] 2.16.840.1.098169.3.579.2. 462 Unknown [id number] 2.16840.1.064150.3.579.2. 462 Social History Date Type Detail [facility] Work Phone: Start: 1995 Sex Assigned At Male [facility] Start: 06-28-2024 [facility] Start: 05-13-2022 End: 08-06-2023 Alcohol intake Current non-drinker of alcohol (finding) [facility] Start: 1995 Sex Assigned At Not on file [facility] Start: 08-06-2023 History of Social function [facility] Start: 08-06-2023 Tobacco use panel [facility] National Score (1-10 0), lower number is lower risk 33 [facility] Start: 07-06-2023 Tobacco smoking stat [facility] Unknown if ever smoked [facility] Clinical Notes 12-15-2022 to 07-04-2024 Telephone Encounter - Minerva Rubio RN - 08/17/2023 4:03 PM ESTTelephone Encounter - Kassidy Valdez LPN - 08/17/2023 9:05 AM Ling Bell LPN - 08/06/2023 10:27 AM EST Note Date & Type Note Facility 07-04-2024 Note [facility] Medical Records Department [address] [place] [address] History Physical Exam 07/04/24 0934 MR#: [id number] Acct: [id number] Name: FABIO SIMPSON Rep #: [id number] : 1995 29 From: Elton Singh MD PCP: ISAURO Olson [place] [facility] [address] History and Physical Date of Admission: 07/04/24 Intake Vital Signs 02/22/2406:27 06/01/2413:03 Height 5 ft 10 in 5 ft 10 in Weight: 195 lb BMI 27.9 BP 126/82 H Blood Pressure Location Rt brachial Position Sitting Respiration 17 Pulse 90 Pulse Source Monitor Pulse Oximetry (%) 99 Oxygen Delivery Method room air Intake Visit Reasons: GERD Chief Complaint: gerd Allergies No Known Allergies Allergy (Unverified 06/01/24 13:05) Medications ???Medication ???Instructions ???Recorded ???Confirmed ???Type NK 03/15/24 06/01/24 History Have you fallen in the past year?: No PFSH Medical History Alcohol use Non-smoker Surgical History Hx of tonsillectomy Family History Father Myocardial infarctionGrandfather Cancer Social History Smoking Status: Never smoker alcohol intake: current alcohol intake frequency: holidays/special occasions only HPI HPI HPI: Patient is a 28-year-old male here for chronic GERD. He reports that is very mild but it lasts about 1/2-hour to an hour after eating if he eats something spicy. And a normal basis he does not have any acid reflux. He says this has been going on for many years. He was sent here for evaluation with EGD. He is not on any medications currently. ROS General General: No weight change, appetite, fatigue, colon cancer, breast cancer or weakness HEENT HEENT: No difficulty swallowing, eye injury, eye surgery, swollen glands or hoarseness Endo Endocrine: No thyroid disease, diabetes mellitus, thyroid cancer, Hair loss, heat intolerance or cold intolerance Skin Skin: No rash or changing moles Musc Musculoskeletal: No back problems, arthritis, rheumatoid arthritis, gout or joint pain Cardio Cardiovascular: No murmur, pacemaker, heart disease, atrial fibrillation, high blood pressure, heart attack, heart stent, palpitations, shortness of breat with exertion or chest pain Psych Psychiatric: Yes anxiety; No depression or hearing voices Resp Respiratory: No shortness of breath, No sleep apnea, No cough, No COPD, No asthma, No emphysema and No wheezing Gastro Gastrointestinal: No abdominal pain, No nausea or vomiting, No diarrhea, No constipation, No blood in stool, Yes acid reflux, No hemorrhoids, No ulcers, No gallbladder problem and No black,tarry stools Spencer Hematologic: No blood thinners, No blood disorders, No bleeding, No anemia and No blood clots Neuro Neurologic: No system reviewed and no additional complaints, except as documented, No as per HPI, No abnormal gait, No abnormal hearing, No abnormal movements, No abnormal speech, No behavioral changes, No burning sensations, No confusion, No convulsions, No disequilibrium, No dizziness, No localized weakness, No frequent falls, No headache(s), No lack of coordination, No loss of vision, No memory loss, No numbness, No other visual disturbances, No radicular pain, No restless legs, No sensory deficit, No syncope, No tingling, No tremor(s), No weakness and No other Exam Const General: cooperative Orientation: alert and oriented x3 HENMT Head: normal to inspection Neck Neck: normal visual inspection and full ROM Chest Chest palpation inspection: normal inspection of the chest Resp Effort Inspection: normal respiratory effort Auscultation: clear to auscultation bilaterally Cardio Rate: regular rate Rhythm: regular rhythm GI Inspection: non-distended Palpation: soft and nontender Skin General: no rashes or lesions noted Neuro General: patient alert and patient oriented x3 Extrem General: full ROM Psych Appearance: grossly normal Mental Status: mental status grossly normal Assessment and Plan Assessment and Plan (1) GERD (gastroesophageal reflux disease): Status: Acute Plan: Patient has longstanding history of mild GERD. I discussed EGD for evaluation for French's esophagus or esophagitis and the patient is interested in having an EGD performed. I also advised him to start Pepcid as it seems like his acid reflux is mild. He is not interested in reflux surgery at this time. I explained endoscopy in detail to the patient. I explained the risks including but not limited to stroke or heart attack with anesthesia, perforation of the GI tract, bleeding, infection. I explained that any of these could necessitate further emergency surgery. The patient (more content not included)... [facility] 08-17-2023 Miscellaneous Notes [facility] Scheduling Dept calling again, asking for copy of MRI Lumbar order to be re-faxed to [phone]. Refaxed as requested. Minerva Rubio RN [facility] Scheduling dept calling asking for copy of MRI Lumbar order to be faxed to [phone]. Printed order and faxed as requested. documented in this encounter [facility] 08-06-2023 Note HNO ID: [id number] Author: Ling Raines LPN Service: ? Author Type: ? Type: Progress Notes Filed: 08/06/2023 11:14 AM Note Text: There is no data to display for this encounter [facility] 08-06-2023 Note HNO ID: [id number] Author: Miguel Pretty Jr., MD Service: ? Author Type: Physician Type: Progress Notes Filed: 08/06/2023 11:14 AM Note Text: ESTABLISHED PATIENT VISIT CHIEF COMPLAINT: Follow up with new symptoms. HISTORY OF PRESENT ILLNESS: Fabio Simpson is a 28 year old male, with a PMH significant for and per last office visit note of 01/22/23: 1. Twitch - ICD9: 781.0, ICD10: R25.3 [...] as follows and with which pt agrees. Per review of rad report from MRI of 02/10/23, imaging was normal. Pt now returns for new complaints. 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 Note that when patient was seen last visit, only complained of eye twitching. Pt now with complaints of numbness and tinging. PCP ordered MRI brain and C spine on 06/23/23. Patient MRI brain was unremarkable per rad report on 06/23/23. 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 There is no report of cord abnormalities or canal stenosis throughout the C spine. 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 States if he would run, he felt so numb, he would have fallen over. [place] like rubber bands were pulling him back. States he was also having tinging that started from C spine down to T spine (start from base of skull). Also reports shock sensations in his left rib cage. States he runs better now, but legs and feet feel 20 pounds heavier. States he was seen by a spine surgeon for the hemangioma who explained it was benign. EMG reportedly showed severe ulnar neuropathy per pt but lower ext EMG was normal. I did not receive report for upper ext but lower ext (they were performed on separate days) per neurologist at [facility], was normal. Reports they repeat lyme studies that were completely normal. States he talked to people about it and they told him he was out of shape. 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 States he know the ulnar neuropathy is a thing as he wakes with numbness in the ulnar spine. A T and L spine MRI was not ordered. I did receive prior EEG results from 01/28/23 was normal per report from [facility]. Twitching is better. Pt specifies this is not just a sensory abnormality... that he feels weak. No double vision. No change in speech. Denies any provoking factors such as virus or trauma. REVIEW OF SYSTEMS GENERAL:No weight loss, malaise [...] or swelling, back pain or muscle pain. NEUROLOGIC:See HPI. SKIN:Negative for lesions, rash, and itching. HEMATOLOGIC/LYMPHATIC/IMMUNOLOGIC:N egative for prolonged bleeding, bruising easily or swollen nodes. ENDOCRINE: Negative for cold or heat intolerance, polyuria, polydipsia and goiter. The remainder of the ROS was reviewed and is negative. LAB/IMAGING: Those performed since patient's last visit have been reviewed. No results found for: WBC, RBC, HB, HCT, MCV, MCH, MCHC, RDWCV, PLT, MPV, GLUC, BUN, CREAT, NA, K, CHLOR, CO2, TPROT, ALB, CA, ALKPHOS, TBILI, AST, ALT, LUH, ESRMM, SSA, SSB, CRYO, CRYOQ, RF, AHBSQ, HEPCABEIA URINALYSIS Specific [place], Ur Date Value Ref Range Status 08/09/2008 1.025 1.005 - 1.030 Glucose, Urine Date Value Ref Range Status 08/09/2008 neg Neg m (more content not included)... [facility] 08-06-2023 History of Present illness Narrative There is no data to display for this encounter ESTABLISHED PATIENT VISIT CHIEF COMPLAINT: Follow up with new symptoms. HISTORY OF PRESENT ILLNESS: Fabio Simpson is a 28 year old male, with a PMH significant for and per last office visit note of 01/22/23: 1. Twitch - ICD9: 781.0, ICD10: R25.3 [...] as follows and with which pt agrees. Per review of rad report from MRI of 02/10/23, imaging was normal. Pt now returns for new complaints. 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 Note that when patient was seen last visit, only complained of eye twitching. Pt now with complaints of numbness and tinging. PCP ordered MRI brain and C spine on 06/23/23. Patient MRI brain was unremarkable per rad report on 06/23/23. 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 There is no report of cord abnormalities or canal stenosis throughout the C spine. 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 States if he would run, he felt so numb, he would have fallen over. [place] like rubber bands were pulling him back. States he was also having tinging that started from C spine down to T spine (start from base of skull). Also reports shock sensations in his left rib cage. States he runs better now, but legs and feet feel 20 pounds heavier. States he was seen by a spine surgeon for the hemangioma who explained it was benign. EMG reportedly showed severe ulnar neuropathy per pt but lower ext EMG was normal. I did not receive report for upper ext but lower ext (they were performed on separate days) per neurologist at [facility], was normal. Reports they repeat lyme studies that were completely normal. States he talked to people about it and they told him he was out of shape. 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 States he know the ulnar neuropathy is a thing as he wakes with numbness in the ulnar spine. A T and L spine MRI was not ordered. I did receive prior EEG results from 01/28/23 was normal per report from [facility]. Twitching is better. Pt specifies this is not just a sensory abnormality... that he feels weak. No double vision. No change in speech. Denies any provoking factors such as virus or trauma. REVIEW OF SYSTEMS GENERAL:No weight loss, malaise [...] or swelling, back pain or muscle pain. NEUROLOGIC:See HPI. SKIN:Negative for lesions, rash, and itching. HEMATOLOGIC/LYMPHATIC/IMMUNOLOGIC:N egative for prolonged bleeding, bruising easily or swollen nodes. ENDOCRINE: Negative for cold or heat intolerance, polyuria, polydipsia and goiter. The remainder of the ROS was reviewed and is negative. LAB/IMAGING: Those performed since patient's last visit have been reviewed. No results found for: WBC, RBC, HB, HCT, MCV, MCH, MCHC, RDWCV, PLT, MPV, GLUC, BUN, CREAT, NA, K, CHLOR, CO2, TPROT, ALB, CA, ALKPHOS, TBILI, AST, ALT, LUH, ESRMM, SSA, SSB, CRYO, CRYOQ, RF, AHBSQ, HEPCABEIA URINALYSIS Specific [place], Ur Date Value Ref Range Status 08/09/2008 [...] use: No Drug use: No PHYSICAL EXAMINATION Blood pressure 122/80, pulse 95, resp. rate 16, weight 88 kg (194 lb), SpO2 97 %. GENERAL EXAM: General appearance: NAD, pleasant. HEENT: NC/AT, nasal congestion absent, no oral lesions, membranes moist. NECK: ROM nml. Lungs: CTA bilaterally. CV: RRR nl S1, S2 Extr: No cyanosis, clubbing or edema. Skin: Cool to touch. NEUROLOGICAL EXAM: General: Awake, alert, oriented x3 (person,place,time), speech fluent, no dysarthria; comprehension, naming, repetition intact. Fund of knowledge grossly normal. CN: PERRL, fundi appear normal including no evidence of papilledema, EOMI and without [...] HTS intact. No tremors. Sensation: Light touch, vibration intact throughout. No evidence of neglect. Pin and temp diminished in distal upper and lower ext stephani. Pin also diminished in distribution of the L ulnar nerve at level of hand. Gait: Stable with normal stride and arm swing. Assessment and Plan: ASSESSMENT/PLAN: 1. Paresthesia of skin - ICD9: 782.0, ICD10: R20.2 (primary diagnosis) 2. General weakness - ICD9: 780.79, ICD10: R53.1 3. Neuropathy - (NOS) - ICD9: 355.9, ICD10: G62.9 4. Ulnar neuropathy of left upper extremity - ICD9: 354.2, ICD10: G56.22 Patient with multiple new complaints as above, of which etiology is uncertain. Symptoms include paresthesias and weakness. I do not have all labs ordered by PCP but I did review most recent MRIs of the brain and C spine that per report are not showing an etiology of symptoms. Physical exam today most significant for decreased pin and temp in distal exts x4, which was not present on prior examination, as well as now finding of decreased sensation in L ulnar distribution. Compression of the L ulnar n appears to be an etiology of the latter. However, regarding the former, need to consider a possible small fiber neuropathy as cause of symptoms. D/w pt and plan was discussed with patient including goal of completing [employer] imaging to confirm no evidence of demyelinating process or stenosis to explain symptoms of lower extremities (MRI T spine already ordered and will now add L spine). Will also check inflammatory labs as well as other causes of neuropathy including B12, ESR, LUH, SPEP, heavy metals, thyroid. Note that would not expect small fiber neuropathy to impact strength to the degree pt endorses, but again, needs to be under consideration given abnormal sensations and exam findings. Pt will complete labs and imaging and then return to clinic. If unremarkable workup and symptoms persist, will then refer to neuromuscular for QSART and skin biopsy for small fiber neuropathy evaluation. Miguel Pretty MD I spent a total of 44 minutes on the date of the service which included preparing to see the patient, [id number] patient care, completing clinical documentation, obtaining and/or reviewing separately obtained history, performing a medically appropriate examination, counseling and educating the patient/family/caregiver, ordering medications, tests, or procedures, and communicating results to the patient/family/caregiver. documented in this encounter [facility] 01-28-2023 Miscellaneous Notes MC message sent to patient with providers results. Trent Casey LPN From reports received, labs unremarkable. Miguel Pretty MD Please see attached labs and review. Scan on 01/27/2023 12:33 PM by External Provider, PAMendozaC: Hematology Marlys Trejo LPN Labs received via [employer] from [facility]. Scanned in to chart and sent to provider for review. Marlys Trejo LPN Pt calling for results of lab work done at [facility]. Pt was being tested for Lyme's Disease. Please advise pt. Natalie Raines LPN documented in this encounter [facility] 01-22-2023 Miscellaneous Notes Referral placed. Marlys Trejo LPN Mary Alice with [facility] Precert called in and reports provider needs to initiate the authorization for the MRI they ordered through the [facility]. documented in this encounter [facility] 01-22-2023 Note HNO ID: [id number] Author: Miguel Pretty Jr., MD Service: ? Author Type: Physician Type: Progress Notes Filed: 01/22/2023 8:54 AM Note Text: NEW PATIENT (CONSULT) HISTORY AND PHYSICAL EXAM PRIMARY CARE PHYSICIAN: No primary care provider on file. REASON FOR CONSULT: Facial twitching REFERRING PHYSICIAN: Silver Thompson MD CHIEF COMPLAINT: Twitching Consultation requested by Silver Thompson MD for an opinion regarding chief complaint of Patient presents with: New Patient and my final recommendations will be communicated back to the requesting physician by way of shared medical record or letter via [place] mail. HISTORY OF PRESENT ILLNESS: Fabio Simpson is a 27 year old male, [...] except coupe concussions as a kid. No VEHICLE SERVICE AGENT infection. No personal or family history of [...] lesions, rash, and itching. PSYCHIATRIC: See HPI. HEMATOLOGIC/LYMPHATIC/IMMUNOLOGIC:N egative for prolonged bleeding, bruising easily or swollen [...] CRYO, CRYOQ, RF, AHBSQ, HEPCABEIA URINALYSIS Specific [place], Ur Date Value Ref Range Status 08/09/2008 [...] oz) SpO2 98% (more content not included)... [facility] 01-22-2023 History of Present illness Narrative NEW PATIENT (CONSULT) HISTORY AND PHYSICAL EXAM PRIMARY CARE PHYSICIAN: No primary care provider on file. REASON FOR CONSULT: Facial twitching REFERRING PHYSICIAN: Silver Thompson MD CHIEF COMPLAINT: Twitching Consultation requested by Silver Thompson MD for an opinion regarding chief complaint of Patient presents with: New Patient and my final recommendations will be communicated back to the requesting physician by way of shared medical record or letter via [place] mail. HISTORY OF PRESENT ILLNESS: Fabio Simpson is a 27 year old male, [...] except coupe concussions as a kid. No VEHICLE SERVICE AGENT infection. No personal or family history of [...] lesions, rash, and itching. PSYCHIATRIC: See HPI. HEMATOLOGIC/LYMPHATIC/IMMUNOLOGIC:N egative for prolonged bleeding, bruising easily or swollen [...] CRYO, CRYOQ, RF, AHBSQ, HEPCABEIA URINALYSIS Specific [place], Ur Date Value Ref Range Status 08/09/2008 [...] RHINITIS NOS 05/10/2007 CHRONIC SINUSITIS NOS 06/09/2007 [facility] MED[facility] HISTORY OF 05/16/98 normal [...] workup complete to determine course of treatment. Miguel Pretty MD Medical Decision Making: Problems: Moderate: New problem with uncertain prognosis Data: Unique test(s) ordered: 3+ Medical Decision Making Level: 4 - Moderate documented in this encounter [facility] 12-17-2022 Miscellaneous Notes Called the patient to schedule an appointment. He needs to be seen for abnormal involuntary movement and twitching. The referral and medical records were sent for scanning. documented in this encounter [facility] 12-15-2022 Miscellaneous Notes Referral received from [facility] for twitching of face and nose. Information given to Britt Dobbins for scheduling. Marlys Trejo LPN documented in this encounter [facility] Evaluation note No assessment information availa [facility] Work Phone: Evaluation note Diagnosis Twitch- Primary Abnormal involuntary movements Abnormal involuntary movement Abnormal involuntary movements Vasovagal episode Syncope and collapse Demyelinating disease of central nervous system (HCC) Demyelinating disease of central nervous system, unspecified [facility] Paresthesia of skin- Primary Disturbance of skin sensation General weakness Other malaise and fatigue Neuropathy - (NOS) Ulnar neuropathy of left upper extremity Lesion of ulnar nerve Spinal stenosis of lumbar region without neurogenic claudication Spinal stenosis, lumbar region, without neurogenic claudication [facility] Diagnosis Onset Date Resolution Status Cubital tunnel syndrome of both upper extremities acute Hemangioma acute [facility] Work Phone: Reason for referral (narrative)* Outpatient Procedure (Routine) - Pending Review Specialty Diagnoses / Procedures Referred By Hilario perez Referred To [facility] Diagnoses Twitch Abnormal involuntary movement Vasovagal episode Procedures EPIL EEG ROUTINE ELECTROENCEPHALOGRAM REC COMA/SLEEP ONLY Miguel Pretty Jr., MD [address] [place] [address] [facility] [place] [address] [place] [address] Referral ID Status Reason Start Date Expiration Date Visits Requested Visits Authorized [id number] Pending Review Auto-Generat ed Referral 01/22/2023 01/23/2024 1 1 * MRI/CT (Routine) - Pending Review Specialty Diagnoses / Procedures Referred By Hilario perez Referred To Contact MR IMAGING Diagnoses Demyelinating disease of central nervous system (HCC) Twitch Abnormal involuntary movement Vasovagal episode Procedures MRI BRAIN WO IVCON MRI BRAIN BRAIN STEM W/O CONTRAST MATERIAL Miguel Pretty Jr., MD [address] [facility] [address] [place] [address] Mr Imaging Referral ID Status Reason Start Date Expiration Date Visits Requested Visits Authorized [id number] Pending Review Auto-Generat ed Referral 01/22/2023 02/21/2024 1 1 [facility]No reason for referral information [facility] Work Phone: Chief Complaint and Reason for Visit Chief Complaint COVID Chief Complaint VASOVEGAL EPISODE Chief Complaint VASOVEGAL EPISODE VASOVEGAL EPISODE Chief Complaint BILAT UPPER EXT NUMB NESS TINGLING BILAT UPPER EXT NUMBNESS TINGLING BILAT LOWER EXT NUMBNESS AND TINGLING BILAT LOWER EXT NUMBNESS AND TINGLING NUMBNESS TINGLING BOTH FEET CERVICAL SPINE Room 1 Reason for Visit Cubital tunnel syndr ome of both upper extremities Hemangioma Chief Complaint BILAT UPPER EXT NUMB NESS TINGLING BILAT UPPER EXT NUMBNESS TINGLING BILAT LOWER EXT NUMBNESS AND TINGL[place] BILAT LOWER EXT NUMBNESS AND TINGLING NUMBNESS TINGLING BOTH FEET CERVICAL SPINE Room 1 Hemangioma unspecified site Reason for Visit Cubital tunnel syndr ome of both upper extremities Hemangioma Chief Complaint Admit Date STAT M79.662 LEFT LEG PAIN January 26, 2025 11:01am Summary Purpose Family History No Family History Records Found Relationship Condition Age at Onset Recorded Date/T rolo father Myocardial infarction Unknown grandfather Malignant neoplasm Unknown Advance Directives No Advanced Directives Records FoundNo Advanced Directives Records FoundNo Advanced Directives Records Found Reason for Referral Specialty Diagnoses / Procedures Referred By Contac t Referred To Contact MR IMAGING Diagnoses Spinal stenosis of lumbar region without neurogenic claudication Procedures MRI LUMBAR SPINE WO IVCON MRI SPINAL CANAL LUMBAR W/O CONTRAST MATERIAL Miguel Pretty Jr., MD [address] [place] [address] [place] [address] Referral ID Status Reason Start Date Expiration Date Visits Requested Visits Authorized [id number] Pending Review Auto-Generat ed Referral 3 09/04/2024 1 1 Additional Source Comments Goals (unrecognized section and content) Goals may be documented in a n alternate sectionGoals may be documented in an alternate sectionGoals may be documented in an alternate sectionGoals may be documented in an alternate sectionGoals may be documented in an alternate sectionGoals may be documented in an alternate sectionGoals may be documented in an alternate sectionGoals may be documented in an alternate section Source Comments (unrecognize d section and content) [...] (unrecogniz ed section and content) Reason Comments Appointment Reason Comments Referral Information Appointment Reason Comments New Patient Reason Comments MRI Authorization Reason Comments Results Reason Comments Follow Up Pt reported bilatera l leg numbness, reported heavy feeling x 3, denied falls. Reason Comments [facility] requested copy of MRI order Care Teams (unrecognized sec tion and content) Team Status: Active Member Role Status Dates Dr. Silver Thompson MD Family Provider Active Dr. Silver Thompson MD Primary Care Provider Active Team Status: Inactive Member Role Status Dates Dr. Silver Thompson MD Primary Care Provider Active Dr. Miguel Pretty MD Attending Provider, Referring P roseamus Active Team Status: Active Member Role Status Dates Dr. Silver Thompson MD Primary Care Provider Active Dr. Miguel Pretty MD Attending Provider, Referring P rovider Active Team Status: Inactive Member Role Status Dates Dr. Silver Thompson MD Primary Care Provider, Attending Provider Active Team Status: Active Member Role Status Dates Dr. Silver Thompson MD Primary Care Provi guy, Referring Provider, Other Provider Active Dr. Roman Jimenez MD Attending Provider Active Team Status: Active Member Role Status Dates Dr. Silver Thompson MD Primary Care Provi guy, Referring Provider, Other Provider Active Dr. Puneet Smalls DO Attending Provider Active Team Status: Inactive Member Role Status Dates Dr. Silver Thompson MD Primary Care Provider, Referring Provider Active Dr. El Jaramillo MD Attending Provider Active Team Status: Inactive Member Role Status Dates Dr. Silver Thompson MD Primary Care Provider Active Dr. Burke Lewis MD Attending Provider Active Team Status: Inactive Member Role Status Dates Dr. Silver Thompson MD Primary Care Provi guy, Attending Provider, Referring Provider Active ANDREW CRUZ Other Provider Active Team Status: Inactive Member Role Status Dates Dr. Silver Thompson MD Primary Care Provi guy, Attending Provider, Referring Provider Active Team Status: Inactive Member Role Status Dates Dr. Silver Thompson MD Primary Care Provider Active Dr. Miguel Pretty MD Attending Provider Active Team Status: Active Member Role Status Dates Rhett Luis M VSC, APRICOT PACKER-C Primary Care Provider Active Team Status: Inactive Member Role Status Dates Rhett Asencio VSC, APRICOT PACKER-C Primary Care Provider Active Start: January 26, 2025 End: January 26, 2025 Jo Tannhof , APRICOT PACKER-C Attending Provider Active Start: January 26, 2025 End: January 26, 2025 Jo Tannhof , APRICOT PACKER-C Referring Provider Active Start: January 26, 2025 End: January 26, 2025 Team Status: Active Member Role Status Dates Rhett Asencio VSC, APRICOT PACKER-C Primary Care Provider Active Start: January 26, 2025 Dr. Orlando Samson MD Attending Provider Active S tart: January 26, 2025 Jo Tannhof , APRICOT PACKER-C Referring Provider Active Start: January 26, 2025 Team Status: Inactive Member Role Status Dates Rhett Asencio VSC, APRICOT PACKER-C Primary Care Provider Active Start: February 28, 2025 End: February 28, 2025 Jo Tannhof , APRICOT PACKER-C Attending Provider Active Start: February 28, 2025 End: February 28, 2025 (unrecognized sect ion and content) No Status Records FoundNo Status Records FoundNo Status Records Found INFORMATION SOURCE (unrecogn ized section and content) DATE CREATED AUTHOR 01/29/2023 [facility] DATE CREATED AUTHOR AUTHOR'S ORGANIZ ATION 08/19/2023 [facility] DATE CREATED AUTHOR AUTHOR'S ORGANIZ ATION 03/09/2025 [facility] FOR RECORDS PERTAINING TO PATIENTS WHO [...] BE BASED ON THE PRIMARY CLINICAL RECORDS. [facility]. provides no warranty or guarantee of the accuracy or completeness of information in this document.
[2025-03-16 12:26] LABS: Color, Urine Yellow (Yellow); Glucose, Dipstick Normal (Normal); Ketone-Dipstick Negative (Negative); Leukocyte Esterase-Dipstick Negative /ul (Negative); Nitrite-Dipstick Negative (Negative); Occult Blood-Urine Negative /ul (Negative); Protein-Dipstick Negative (Negative); Specific Gravity, Urine 1.015 (1.002-1.030); Urine Bilirubin Dipstick Negative (Negative); Urine Clarity Clear (Clear); Urine Urobilinogen Normal (Normal); Urine pH 6.5 (5.0 - 8.0)
[2025-03-16 12:30] LABS: Microalbumin,Random Urine < 12.0 mg/L (NO RANGE EST.); Microalbumin:Creatinine Ratio UNABLE TO CALCULATE mg/g CRE
[2025-03-16 12:31] LABS: Hemoglobin A1c 5.4 % (<=5.6)
[2025-03-16 12:38] LABS: ALB/GLOB Ratio 2.4 RATIO (0.9-2.4); AST(SGOT) 21 U/L (<=37); Alanine Aminotransfer ALT/SGPT 15 U/L (<=46); Alkaline Phosphatase 42 U/L (40-129); Anion Gap 13 (5-15); BUN 18 mg/dL (4-19); BUN/Creat Ratio 15.8 RATIO (10-20); Calcium,Total 9.9 mg/dL (7.6-11.0); Carbon Dioxide 24.2 mmol/L (21.0-32.0); Chloride 103 mmol/L (98-108); Creatinine, Serum 1.11 mg/dL (0.70-1.20); EST Glomerular Filtration Rate 91 (>60); Globulin 2.1 g/dL (2.2-4.2); Glucose 94 mg/dL (70-99); Potassium 4.2 mmol/L (3.3-5.1); Protein, Total 7.1 g/dL (5.9-8.4); Sodium Level 140 mmol/L (133-145); Total Bilirubin 1.52 mg/dL (0.00-1.30)
[2025-03-16 12:55] LABS: PSA,Total - Annual Screen 0.47 ng/mL (0.02-4.00)
[2025-03-19 15:09] LABS: GGTP 10 IU/L (0-65); Testosterone, % Free 3.48 % (1.50-4.20); Testosterone, Free 21.47 ng/dL (5.00-21.00); Testosterone, Total 617 ng/dL (264-916)
== END | disposition home or self-care (01) ==
LOC: VSLAB 08:47
PROVIDERS: PCP Nurse Practitioner Family; Visit Provider Nurse Practitioner Family
DX: R35.0 Frequency of micturition (principal); E80.6 Other disorders of bilirubin metabolism
CPT/HCPCS: 36415; 80053; 81001; 82043; 82570; 82977; 83036; 84153; 84402; 84403; G0103